=== PATIENT | female | born 1970 | race African-American/Black ===

== ENCOUNTER → 2019-05-31 12:18 | Outpatient (CLI) | payer OTHER, SELFPAY ==
--- NOTE | ~2019-05-31 | XR_ITS ---
EXAMINATION: XR chest 2V EXAM DATE: 05/31/2019 12:54 INDICATION: Shortness of breath, cough. Central and anterior chest pain. Wheezing. TECHNIQUE: Frontal and lateral projections of the chest obtained and reviewed. Comparison is made to prior examination from 12/29/2018. FINDINGS: The lungs are clear. There are no pleural effusions. The cardiomediastinal silhouette is within normal limits. There is no pneumothorax suspected. The bones and soft tissues are unremarkab le. IMPRESSION: No acute cardiopulmonary findings. Reviewed, dictated and finalized at location B.
== END ==
PROVIDERS: PCP Family Medicine; Visit Provider Physician Assistant
DX: J22 Unspecified acute lower respiratory infection (principal)
CPT/HCPCS: 71046

== ENCOUNTER 2019-11-02 13:34 | Outpatient (CLI) | payer OTHER, SELFPAY ==
--- NOTE | ~2019-11-02 | MM_ITS ---
EXAMINATION: MM screening [facility] BI w medardo HISTORY: Screening TECHNIQUE: Craniocaudal and mediolateral oblique 3-D tomosynthesis images were obtained and synthetic 2-D images were generated. CAD analysis was submitted and interpreted. COMPARISON: Comparison to multiple prior studies sequentially, with oldest reviewed study dated 09/2012. BREAST PARENCHYMAL COMPOSITION: There are scattered areas of fibroglandular density. FINDINGS: There is no evidence of suspicious mass, calcification, or architectural distortion to sugg est malignancy in either breast. There has been no suspicious interval change. IMPRESSION: 1. No mammographic evidence of malignancy. 2. Recommend routine screening mammography in one year. BI-RADS Category 1: Negative Reviewed, dictated and finalized at location A.
--- NOTE | ~2019-11-02 | DEXA_ITS ---
Bone Density Report Name: Mercedez Lopez Age: 49 Sex: Female Ethnicity: Black Date of : 1970 Indication: postmenopausal; height loss; hysterectomy; Referring Provider: KATE, ANDRES Study: Bone densitometry was performed. Exam Date: November 02, 2019 Accession number: [id number] Bone Density: Region BMD T-score Z-score Classification AP Spine (L1-L4) 1.050 0.0 -0.2 Normal Femoral Neck (Left) 0.825 -0.2 -0.5 Normal Total Hip (Left) 1.013 0.6 0.0 Normal Total Hip Bilateral Avg 1.027 0.7 0.1 Normal Femoral Neck (Right) 0.856 0.1 -0.3 Normal Total Hip (Right) 1.039 0.8 0.2 Normal World Health Organization criteria for BMD impression classify patients as: Normal (T-score at or above -1.0), Osteopenia (T-score between -1.0 and -2.5), or Osteoporosis (T-score at or below -2.5). 10-year Fracture Risk: FRAX not reported because: All T-scores for Spine Total, Hip Total, Femoral Neck at or above -1.0 Clinical Information Provided by Patient: Has used the following medications: Vitamin D, Calcium Has the following medical conditions: Hysterectomy Patient maximum height was 63 Menopause Age: 44 No regular weight bearing exercise Onset of menses at age 14 Number of children 2 Impression: The patient has normal bone mass. Discussion: BONE DENSITY IS ABOVE THE MINIMUM DESIRABLE LEVEL AT ALL SKELETAL SITES TESTED. This patient?s bone mineral density is above the minimum desirable level (T-score -1.0 or better) at all sites measured. The patient should follow a healthful lifestyle (good nutrition with adequate calcium and vitamin D, and appropriate weight-bearing exercise). Follow-Up: Consider repeating this study in 5 years or sooner if there is some new clinical indication. Reported by: ELKE on 11/02/2019 2:09:00 PM. Reviewed, dictated and finalized at location AMavis ZHAO
== END 2019-11-02 13:35 | disposition home or self-care (01) ==
PROVIDERS: PCP Family Medicine; Visit Provider Nurse Practitioner
DX: Z13.820 Encounter for screening for osteoporosis (principal); Z12.31 Encounter for screening mammogram for malignant neoplasm of breast; Z78.0 Asymptomatic menopausal state
CPT/HCPCS: 77063; 77067; 77080

== ENCOUNTER 2020-01-09 06:53 | Outpatient (NON) | payer OTHER, SELFPAY ==
[2020-01-11 13:31] LABS: SARS-CoV-2 RNA PCR Negative
== END 2020-01-09 06:54 ==
LOC: ANHCOVIDDT 07:05
PROVIDERS: PCP Family Medicine; Visit Provider Family Medicine
DX: R68.89 Other general symptoms and signs (principal); Z20.828 Contact with and (suspected) exposure to other viral communicable diseases
CPT/HCPCS: 87635; C9803; U0003

== ENCOUNTER 2020-04-30 16:34 | Outpatient (CLI) | payer OTHER, SELFPAY | END 2020-04-30 16:35 | disposition home or self-care (01) | LOC: ANHCOVIDVC 16:34 | PROVIDERS: PCP Family Medicine | DX: Z23 Encounter for immunization (principal) | CPT/HCPCS: 0001A; 91300 ==

== ENCOUNTER 2020-05-21 16:36 | Outpatient (CLI) | payer OTHER, SELFPAY | END 2020-05-21 16:37 | disposition home or self-care (01) | LOC: ANHCOVIDVC 16:37 | PROVIDERS: PCP Family Medicine | DX: Z23 Encounter for immunization (principal) | CPT/HCPCS: 0002A; 91300 ==

== ENCOUNTER 2021-03-18 08:59 | Outpatient (CLI) | payer OTHER, SELFPAY ==
--- NOTE | ~2021-03-18 | MM_ITS ---
EXAMINATION: MM screening [facility] BI w medardo HISTORY: Screening mammogram TECHNIQUE: Craniocaudal and mediolateral oblique 3-D tomosynthesis images were obtained and synthetic 2-D images were generated. CAD analysis was submitted and interpreted. COMPARISON: 11/02/2019, 06/24/2018, 04/27/2017 BREAST PARENCHYMAL COMPOSITION: There are scattered areas of fibroglandular density. FINDINGS: There has been interval reduction mammoplasty. A few scattered areas of fat necrosis in the breasts are consistent with surgical change. There is no evidence of suspicious mass, calcification, or architectural distortion to suggest malignancy in either breast. There has been no suspicious int erval change. IMPRESSION: 1. No mammographic evidence of malignancy. 2. Recommend routine screening mammography in one year. BI-RADS Category 2: Benign finding(s). Reviewed, dictated and finalized at location A. [employer] WORK[employer]
== END 2021-03-18 09:00 | disposition home or self-care (01) ==
LOC: ANHIMG 09:01
PROVIDERS: PCP Family Medicine; Visit Provider Nurse Practitioner
DX: Z12.31 Encounter for screening mammogram for malignant neoplasm of breast (principal)
CPT/HCPCS: 77063; 77067

== ENCOUNTER 2021-06-28 15:25 | Emergency (ER) | payer OTHER, SELFPAY ==
--- NOTE | ~2021-06-28 | XR_ITS ---
EXAMINATION: XR chest 2V DATE: 06/28/2021 16:05 INDICATION: Cough. TECHNIQUE: Frontal and lateral views of the chest were obtained. COMPARISON: Chest 2 views 12/29/2018 FINDINGS: The chest demonstrates clear lungs without pneumonia, pleural effusion, or pneumothorax. Th e heart size is normal. IMPRESSION: 1. No acute cardiopulmonary disease. Reviewed, dictated and finalized at location A.
[2021-06-28 15:34] VITALS: BP 181/113; PULSE 72; RESP 16; TEMP 36.3; O2SAT 100
--- NOTE | 2021-06-28 15:48 | ED.URI ---
HPI - URI/Sore Throat General Chief Complaint: Upper Respiratory Infection Stated Complaint: Congestion Time Seen by Provider: 06/28/21 15:48 Source: patient Mode of arrival: ambulatory Limitations: no limitations History of Present Illness HPI Narrative: Mercedez Weiss is a 51 yo female with a PMH of HTN, GERD,anxiety, herpes zoster, comes to [facility] with a headache and chest heaviness. 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 Headache-3 weeks ago he was treated for bronchitis and has chest heaviness and thinks she has pneumonia EYES: Denies visual changes, redness, discharge. ENT: Denies rhinorrhea, congestion, sore throat, otalgia. CARDIOVASCULAR: Denies chest pain, palpitations, edema. RESPIRATORY: Denies dyspnea, wheezing, cough GASTROINTESTINAL: Denies abdominal pain, nausea, vomiting, diarrhea. GENITOURINARY: Denies dysuria, hematuria, abnormal discharge SKIN: Denies rash or itching. NEUROLOGIC: Denies numbness, or focal weakness. PSYCHIATRIC: Denies anxiety or depression. [facility] Past Medical History Medical History Encounter for immunization Essential hypertension (~2009) Gastroesophageal reflux disease without esophagitis HTN (hypertension) Migraine Obstructive sleep apnea Other allergic rhinitis Other hyperlipidemia Prediabetes Vitamin D deficiency Surgical History Surgical History H/O bariatric surgery H/O section History of bilateral breast reduction surgery Family History Family History Mother Hypertension Father Family history of malignant neoplasm Patient's father is Other Family history of lung cancer Social History Social History Second hand tobacco smoke exposure: No Alcohol intake: never Substance use: never Substance use type: does not use Gender identity (if verbalized by the patient): Female Spiritual care concerns: No Agree to blood products: Yes Comments At time of signature, I agree with nursing past medical, surgical, social and family history. There is no relevant family history pertinent to the presenting complaint. Exam Narrative: GENERAL: This is a well-nourished, well-developed patient, in mild distress. Complaining of mild headache HEAD: normocephalic, atraumatic. EYES: Sclera clear/white. Vision is grossly intact. EARS: External ears normal, auditory canals clear and without drainage, TMs normal without perforation. Hearing grossly intact. NOSE: External nose normal without nasal discharge, nares without redness, no rhinorrhea. THROAT: Mucous membranes moist, posterior pharynx NECK: Neck supple, non-tender CARDIOVASCULAR: Regular rate and rhythm without murmurs, gallops, or rubs. RESPIRATORY: Clear to auscultation. Breath sounds equal bilaterally. No wheezes, rales, or rhonchi. GASTROINTESTINAL: Abdomen soft, non-tender, SKIN: warm, intact with no suspicious lesions or rash, good texture and turgor. NEURO: awake, alert, and oriented to person, place and time. There were no obvious fo
[2021-06-28] MEDS: cloNIDine HCL 0.1 MG TABLET 0.2 MG PO (16:11)
[2021-06-28 16:33] VITALS: BP 170/108
== END 2021-06-28 16:33 | disposition home or self-care (01) ==
PROVIDERS: Emergency Provider Nurse Practitioner; PCP Family Medicine
DX: I10 Essential (primary) hypertension (principal); J40 Bronchitis, not specified as acute or chronic
CPT/HCPCS: 71046; 99213; A9270; G0463

== ENCOUNTER 2021-10-14 08:43 | Outpatient (CLI) | payer OTHER, SELFPAY ==
--- NOTE | ~2021-10-14 | XR_ITS ---
EXAMINATION: XR chest 2V DATE: 10/14/2021 10:03 INDICATION: Dyspnea TECHNIQUE: PA and lateral views of the chest were obtained. COMPARISON: Chest radiograph dated 06/28/2021 FINDINGS: The lungs remain clear with no focal airspace opacities, pulmonary edema, pleural effusion or pneumot horax. The cardiomediastinal silhouette is normal. Mild thoracic spondylosis with chronic mild anteri or wedging of a a few mid to lower thoracic vertebral bodies. IMPRESSION: 1. No acute cardiopulmonary disease. Reviewed, dictated and finalized at location A.
--- NOTE | 2021-10-14 09:14 | ECHO_ITS ---
Patient Info Name: Mercedez Weiss Age: 51 years : 1970 Gender: Female Ht: 62 in Wt: 190 lbs BSA: 1.98 m2 HR: 51 bpm BP: 136 / 106 mmHg Heart Rhythm: Sinus Rhythm Technical Quality: Good Exam Date: 10/14/2021 9:31 AM Exam Location: [facility] Patient Status: Outpatient Admit Date: 10/14/2021 Staff Ordering Physician: Markel Hoyos MD Brick Offbearer: Tameka Maxwell RDCS Attending Provider: Markel Hoyos MD Referring Physician: Romain SIMS; Exam Type: CA echo doppler color flow Study Info Indications R06.00 - Dyspnea, unspecified Complete two-dimensional, color flow and Doppler transthoracic echocardiogram is performed. Summary 1. Complete two-dimensional, color flow and Doppler transthoracic echocardiogram is performed. 2. Left ventricular chamber dimension is normal. 3. Left ventricular systolic function is normal, estimated at 65-70%. 4. There is mildly increased left ventricular wall thickness. 5. The left ventricular diastolic function is grade II diastolic dysfunction. 6. Global longitudinal strain is mildly elevated at -15 %. 7. There is no aortic valve stenosis. 8. There is trace mitral valve regurgitation. 9. There is trace tricuspid valve regurgitation. 10. No pulmonary hypertension, estimated pulmonary arterial systolic pressure is 22 mmHg. Left Ventricle Left ventricular chamber dimension is normal. Left ventricular systolic function is normal, estimated at 65-70%. There is mildly increased left ventricular wall thickness. The left ventricular diastolic function is grade II diastolic dysfunction. Global longitudinal strain is mildly elevated at -15 %. Right Ventricle Right ventricular chamber dimension is normal. Right ventricular systolic function is normal. Left Atria Left atrial chamber dimension is normal. Right Atria Right atrial chamber dimension is normal. Aortic Valve The aortic valve is trileaflet. There is no aortic valve stenosis. There is trace aortic valve regurgitation. Pulmonic Valve The pulmonic valve is not well visualized. There is trace pulmonic regurgitation. Mitral Valve The mitral valve has normal leaflets. There is trace mitral valve regurgitation. Tricuspid Valve The tricuspid valve leaflets are normal. There is trace tricuspid valve regurgitation. No pulmonary hypertension, estimated pulmonary arterial systolic pressure is 22 mmHg. Pericardium/Pleural The pericardium appears normal. There is no pericardial effusion. Inferior Vena Cava Normal inferior vena cava with >50% collapse upon inspiration consistent with normal right atrial pressure, 5 mmHg. Aorta The aortic root size at the sinus of Valsalva is normal. Left Ventricular Outflow Tract Name Value Normal LVOT 2D LVOT Diameter 1.9 cm LVOT Doppler LVOT Peak Gradient 5 mmHg LVOT Mean Gradient 2 mmHg LVOT VTI 24 cm LVOT VTI/AV VTI Ratio 0.9 LVOT Stroke Volume 65 ml LVOT CO
[2021-10-14 09:20] LABS: Basophils Percent Auto 0.7 % (0.2-1.2); Eosinophils Absolute Auto 0.4 K/mm3 (0-0.3); Eosinophils Percent Auto 6.8 % (0-4.4); Hematocrit 37.1 % (37.0-47.0); Immature Granulocyte Absolute 0.01 K/mm3 (0.00-0.031); Immature Granulocyte Percent A 0.2 % (0-0.5); Lymphocytes Absolute Auto 2.12 K/mm3 (0.9-3.2); Lymphocytes Percent Auto 37.9 % (18.3-44.2); Mean Corpuscular HGB Conc 32.3 g/dl (32-36); Mean Corpuscular Volume 89.6 fl (80-100); Mean Platelet Volume 11.7 fl (7.4-10.4); Monocytes Absolute Auto 0.5 K/mm3 (0.1-0.6); Monocytes Percent Auto 9.1 % (2.6-8.5); Neutrophils Absolute Auto 2.5 K/mm3 (1.3-6.7); Neutrophils Percent Auto 45.3 % (45.5-73.1); Platelet Count Result 198 k/mm3 (150-375); Red Blood Count 4.14 M/mm3 (4.2-5.4); Red Cell Distribution Width 12.5 % (11.5-14.5); White Blood Count 5.6 K/mm3 (4.5-10.0)
[2021-10-14 09:40] LABS: Anion Gap 9 mmol/L (8-16); Blood Urea Nitrogen 13 mg/dL (7-17); Calcium 8.4 mg/dL (8.4-10.2); Carbon Dioxide 24 mmol/L (22-30); Chloride 105 mmol/L (98-107); Estimated Glomerular Filt Rate > 60; Glucose 117 mg/dL (65-110); Potassium 3.6 mmol/L (3.4-5.0); Sodium 138 mmol/L (137-145)
--- NOTE | 2021-10-16 12:57 | WPDPFTINT ---
PFT Procedure Performed PFT Procedure Performed Spirometry with Pre/Post Bronchodilator Plethysmography (Lung Vol) Diffusing Cap (DLCO) Flow Vol Loop PFT Interpretation This is a pulmonary function test with pre and post-bronchodilator spirometry, plethysmography and diffusing capacity. The test was performed and results interpreted in accordance with the 2019 and 2005 ATS/ERS Task Force guidelines respectively using the Global Lung Function Initiative-2012 reference equations. Patient demonstrated good effort and cooperation. Reproducibility criteria were met. The quality of the pre bronchodilator spirometry maneuver was Grade A and post bronchodilator spirometry maneuver was Grade A. Findings: Spirometry: The contour the inspiratory and expiratory flow tracings are normal. The pre bronchodilator FVC is 3.04 L, 111% predicted. The pre bronchodilator FEV1 is 2.41 L, 108% predicted. The pre bronchodilator FEV1: FVC ratio 79%. The post bronchodilator FVC is 3.06 L, representing no change. The post bronchodilator FEV1 is 2.49 L, representing a 3% increase. The post bronchodilator FEV1: FVC ratio was 81%. Plethysmography: The total lung capacity is 5.15 L, 124% predicted. The functional residual capacity is 2.73 L, 115% predicted. The residual volume is 2.11 L, 137% predicted. Diffusing capacity: The diffusing capacity unadjusted for hemoglobin and carboxyhemoglobin is 18.9, 86% predicted. The diffusing capacity adjusted for alveolar volume is 4.60, 98% predicted. Impression: The spirometry is normal without evidence of an obstructive abnormality. There is no significant improvement after inhaling a single dose of albuterol. The lung volumes are normal. The diffusing capacity is normal. There are no prior studies for comparison
== END 2021-10-14 08:44 | disposition home or self-care (01) ==
PROVIDERS: PCP Family Medicine; Visit Provider Internal Medicine Pulmonary Disease
DX: R06.00 Dyspnea, unspecified (principal)
CPT/HCPCS: 36415; 71046; 80048; 85025; 93306; 94060; 94726; 94729

== ENCOUNTER 2022-05-05 00:53 | Day surgery (SDC) | payer OTHER, SELFPAY ==
[2022-04-28 13:29] VITALS: BMI 32.0
--- NOTE | 2022-05-02 12:41 | PM.HPGS ---
History of Present Illness History of Present Illness Consent: Risks, benefits, and alternatives have been discussed and questions answered. Patient agrees to proceed with procedure. Chief complaint: neoplasm screening Narrative: Mercedez Weiss is a 52 year old female referred for colon cancer screening. Review of Systems Review of Systems: All systems reviewed & are unremarkable except as noted in HPI and below PMFSH Past Medical History Medical History Encounter for immunization Essential hypertension (~2009) Gastroesophageal reflux disease without esophagitis HTN (hypertension) Migraine Obstructive sleep apnea Other allergic rhinitis Other hyperlipidemia Prediabetes Vitamin D deficiency Surgical History Surgical History H/O bariatric surgery H/O section History of bilateral breast reduction surgery Family History Family History Mother Hypertension Father Family history of malignant neoplasm Patient's father is Other Family history of lung cancer Social History Social History Smoking status: Never smoker Second hand tobacco smoke exposure: No Alcohol intake: never Substance use: never Substance use type: does not use Lack of Transportation: No Lack of Food: Never True Current Housing: I Have Housing Concerned About Future Housing: No Difficulty Paying Gas/Electric Bills: No Difficulty Paying for Meds: No Currently Unemployed: No Education: High School Diploma/GED Difficulty w/ Childcare or Family Care: No Living arrangements: with family Gender identity (if verbalized by the patient): Female Sexual Orientation (if Verbalized by the Patient): Straight or Heterosexual Spiritual care concerns: No Agree to blood products: Yes Meds Home Medications and Allergies Home Medications Medication Instructions Recorded Confirmed Type albuterol sulfate 90 mcg/actuation 1 inhalation inhalation Q4H PRN 05/27/19 04/28/22 Rx aerosol inhaler (ProAir HFA) shortness of breath or wheezing #8.5 grams labetalol 100 mg tablet 200 mg PO Q12H #60 tabs 01/23/20 04/28/22 Rx rizatriptan 10 mg tablet (Maxalt) See Rx Instructions PO .COMPLEX #9 05/28/21 03/06/23 Rx tabs valacyclovir 1 gram tablet 1,000 mg PO Q12H PRN cold sores 02/22/21 04/28/22 Rx #10 tabs ergocalciferol (vitamin D2) 1,250 1,250 mcg PO 2XW 06/03/21 04/28/22 History mcg (50,000 unit) capsule famotidine 20 mg tablet (Pepcid) 20 mg PO DAILY #30 tabs 06/18/21 04/28/22 Rx cetirizine 10 mg tablet (Zyrtec) 10 mg PO DAILY #30 tabs 06/28/21 04/28/22 Rx clonidine HCl 0.1 mg tablet 0.1 mg PO DAILY PRN hypertensive 07/05/21 04/28/22 Rx emergency #30 tabs triamcinolone acetonide 0.1 % 1 applic topical BID #80 grams 09/12/21 04/28/22 Rx topical ointment pantoprazole 40 mg tablet,delayed 40 mg PO QAM #90 tabs 12/02/21 04/28/22 Rx release (Protonix) fluticasone propionate 50 See Rx Instructions .Route 03/03/22 04/28/22 Rx mcg/actuation nasal .COMPLEX #48 grams spray,suspension amlodipine 10 mg tablet 10 mg PO DAILY #90 tabs 03/05/22 04/28/22 Rx lisinopril 40 mg tablet 40 mg PO DAILY #90 tabs 03/05/22 04/28/22 Rx estradiol 1 mg tablet 1.5 mg PO DAILY 03/20/22 04/28/22 History venlafaxine 37.5 mg 37.5 mg PO DAILY 03/20/22 04/28/22 History capsule,extended release 24 hr chlorthalidone 25 mg tablet 12.5 mg PO DAILY 04/28/22 04/28/22 History Allergies Allergy/AdvReac Type Severity Reaction Status Date / Time No Known Allergies Allergy Verified 05/05/22 07:18 Exam Const: General: alert Orientation/consciousness: patient oriented x3 Resp: Auscultation: clear to auscultation bilaterally Cardio: Rhythm: regular rhythm GI: GI Palp: Yes Sof
[2022-05-05 07:22] VITALS: BP 109/77; PULSE 76; RESP 20; TEMP 36.6; O2SAT 100
[2022-05-05] MEDS: LACTATED RINGERS 1,000 ML 150 ML IV CONT (07:33)
--- NOTE | 2022-05-05 07:50 | WPDANESEPPF ---
Anes - Initial Pre Proc Eval Procedure: Operation Date: 05/05/22 08:30 Proposed Procedures p Screening Colonoscopy - Kev Sheehan MD Date/Time: 05/05/22 07:50 Surgeon: Kev Sheehan MD Pre Op Diagnosis: neoplasm screening Patient Data Age: 52 Gender: F Height: 1.6 m Weight: 88.1 kg Last Vital Signs Temp 36.6 C 05/05/22 07:22 Pulse 76 05/05/22 07:22 Resp 20 05/05/22 07:22 BP 109/77 05/05/22 07:22 Pulse Ox 100 05/05/22 07:22 O2 Del Method Room Air 05/05/22 07:22 Allergies Allergy/AdvReac Type Severity Reaction Status Date / Time No Known Allergies Allergy Verified 05/05/22 07:18 Home Medications Medication Instructions Recorded Confirmed Type albuterol sulfate 90 mcg/actuation 1 inhalation inhalation Q4H PRN 05/27/19 04/28/22 Rx aerosol inhaler (ProAir HFA) shortness of breath or wheezing #8.5 grams labetalol 100 mg tablet 200 mg PO Q12H #60 tabs 01/23/20 04/28/22 Rx rizatriptan 10 mg tablet (Maxalt) See Rx Instructions PO .COMPLEX #9 07/20/20 04/28/22 Rx tabs valacyclovir 1 gram tablet 1,000 mg PO Q12H PRN cold sores 02/22/21 04/28/22 Rx #10 tabs ergocalciferol (vitamin D2) 1,250 1,250 mcg PO 2XW 06/03/21 04/28/22 History mcg (50,000 unit) capsule famotidine 20 mg tablet (Pepcid) 20 mg PO DAILY #30 tabs 06/18/21 04/28/22 Rx cetirizine 10 mg tablet (Zyrtec) 10 mg PO DAILY #30 tabs 06/28/21 04/28/22 Rx clonidine HCl 0.1 mg tablet 0.1 mg PO DAILY PRN hypertensive 07/05/21 04/28/22 Rx emergency #30 tabs triamcinolone acetonide 0.1 % 1 applic topical BID #80 grams 09/12/21 04/28/22 Rx topical ointment pantoprazole 40 mg tablet,delayed 40 mg PO QAM #90 tabs 12/02/21 04/28/22 Rx release (Protonix) fluticasone propionate 50 See Rx Instructions .Route 03/03/22 04/28/22 Rx mcg/actuation nasal .COMPLEX #48 grams spray,suspension amlodipine 10 mg tablet 10 mg PO DAILY #90 tabs 03/05/22 04/28/22 Rx lisinopril 40 mg tablet 40 mg PO DAILY #90 tabs 03/05/22 04/28/22 Rx estradiol 1 mg tablet 1.5 mg PO DAILY 03/20/22 04/28/22 History venlafaxine 37.5 mg 37.5 mg PO DAILY 03/20/22 04/28/22 History capsule,extended release 24 hr chlorthalidone 25 mg tablet 12.5 mg PO DAILY 04/28/22 04/28/22 History Patient hx anesthesia problems: none Family hx anesthesia problems: none Results Review: All pre-operative results and documents have been reviewed as part of the pre-operative evaluation. [facility] Past Medical History Medical History Encounter for immunization Essential hypertension (~2009) Gastroesophageal reflux disease without esophagitis HTN (hypertension) Migraine Obstructive sleep apnea Other allergic rhinitis Other hyperlipidemia Prediabetes Vitamin D deficiency Surgical History Surgical History H/O bariatric surgery H/O section History of bilateral breast reduction surgery Family History Family History Mother Hypertension Father Family history of malignant neoplasm Patient's father is Other Family history of lung cancer Social History Social History Smoking status: Never smoker Second hand tobacco smoke exposure: No Alcohol intake: never Substance use: never Substance use type: does not use Lack of Transportation: No Lack of Food: Never True Current Housing: I Have Housing Concerned About Future Housing: No Difficulty Paying Gas/Electric Bills: No Difficulty Paying for Meds: No Currently Unemployed: No Education: High School Diploma/GED Difficulty w/ Childcare or Family Care: No Living arrangements: with family Gender identity (if verbalized by the patient): Female Sexual Orientation (if Verbalized by the Patient): Straight or Heterosexual Spiritual
[2022-05-05 08:45] VITALS: BP 110/71; PULSE 72; RESP 18; O2SAT 95
[2022-05-05 08:55] VITALS: BP 105/70; PULSE 70; RESP 16; O2SAT 96
[2022-05-05 09:05] VITALS: BP 124/79; PULSE 62; RESP 22; O2SAT 100
== END 2022-05-05 09:11 | disposition home or self-care (01) ==
PROVIDERS: PCP Family Medicine; Visit Provider Internal Medicine Gastroenterology
PROC: 0DJD8ZZ Inspection of Lower Intestinal Tract, Via Natural or Artificial Opening Endoscopic (ICD-10-PCS; CPT 45378; principal; 2022-05-05 08:30)
DX: Z12.11 Encounter for screening for malignant neoplasm of colon (principal); K62.1 Rectal polyp; K21.9 Gastro-esophageal reflux disease without esophagitis; K64.8 Other hemorrhoids; I10 Essential (primary) hypertension; E78.5 Hyperlipidemia, unspecified; E55.9 Vitamin D deficiency, unspecified; R73.03 Prediabetes; G47.33 Obstructive sleep apnea (adult) (pediatric)
CPT/HCPCS: 45380; 88305; J2704; J7120

== ENCOUNTER 2022-06-03 09:33 | Outpatient (CLI) | payer OTHER, SELFPAY ==
--- NOTE | ~2022-06-03 | MM_ITS ---
EXAMINATION: MM screening [facility] w medardo HISTORY: Screening mammogram TECHNIQUE: Craniocaudal and mediolateral oblique 3-D tomosynthesis images were obtained and synthetic 2-D images were generated. CAD analysis was submitted and interpreted. COMPARISON: 03/18/2021, 11/02/2019, 06/24/2018 BREAST PARENCHYMAL COMPOSITION:There are scattered areas of fibroglandular density. FINDINGS: There is a focal distortion in the upper left breast on MLO view, posterior third. No suspi cious abnormality seen in the right breast. There is evidence of interval reduction mammoplasty. IMPRESSION: Focal distortion in the upper left breast in MLO view, as detailed above. This is possibly related to interval reduction mammoplasty, however spot compression views and ultrasound are recommended for fu rther evaluation this time. BI-RADS Category 0: Incomplete: Needs additional imaging evaluation. Reviewed, dictated and finalized at [facility]. IMPRESSION: Focal distortion in the upper left breast in MLO view, as detailed above. This is possibly related to interval reduction mammoplasty, however spot compression views and ultrasound are recommended for further evaluation this time. BI-RADS Category 0: Incomplete: Needs additional imaging evaluation.
== END 2022-06-03 09:34 | disposition home or self-care (01) ==
PROVIDERS: PCP Family Medicine; Visit Provider Nurse Practitioner
DX: Z12.31 Encounter for screening mammogram for malignant neoplasm of breast (principal); R92.8 Other abnormal and inconclusive findings on diagnostic imaging of breast
CPT/HCPCS: 77063; 77067

== ENCOUNTER 2022-06-24 12:49 | Outpatient (CLI) | payer OTHER, SELFPAY ==
--- NOTE | ~2022-06-24 | MMUS_ITS ---
EXAMINATION: MM diagnostic [facility] LT w medardo, US breast LT limited HISTORY: Left breast asymmetry on screening mammogram TECHNIQUE: Additional 3-D tomosynthesis images of the left breast were performed and synthetic 2-D im ages were generated. CAD analysis was submitted and interpreted. High resolution limited left breast ultrasound was performed. COMPARISON: 06/03/2022, 03/18/2021, 11/02/2019 FINDINGS: MAMMOGRAPHIC FINDINGS: There is a persistent focal asymmetry in the middle third outer breast at 3:00 location 5 cm from the nipple. No suspicious calcification is identified. ULTRASOUND: There is no evidence of focal abnormal solid or cystic mass in the vicinity of the mammographic findi ng in question. IMPRESSION: 1. Probably benign focal asymmetry in the left breast related to interval reduction mammoplasty. 2. Recommend 6 month follow-up left diagnostic mammogram and possible ultrasound. BI-RADS category 3, probably benign findings. Reviewed, dictated and finalized at location A. IMPRESSION: 1. Probably benign focal asymmetry in the left breast related to interval reduc tion mammoplasty. 2. Recommend 6 month follow-up left diagnostic mammogram and possible ultrasoun d. BI-RADS category 3, probably benign findings.
== END 2022-06-24 12:50 | disposition home or self-care (01) ==
PROVIDERS: PCP Family Medicine; Visit Provider Obstetrics & Gynecology Gynecology
DX: R92.8 Other abnormal and inconclusive findings on diagnostic imaging of breast (principal)
CPT/HCPCS: 76642; 77061; 77065; G0279

== ENCOUNTER 2022-06-30 07:59 | Emergency (ER) | payer OTHER, SELFPAY ==
--- NOTE | ~2022-06-30 | XR_ITS ---
EXAMINATION: XR chest 2V DATE: 06/30/2022 08:28 INDICATION: Cough. TECHNIQUE: Frontal and lateral views of the chest were obtained. COMPARISON: Chest 2 views 10/14/2021 FINDINGS: There is no pneumonia, pleural effusion, or pneumothorax. The heart size is normal. IMPRESSION: 1. No acute cardiopulmonary disease. Reviewed, dictated and finalized at location A.
[2022-06-30 08:00] VITALS: BP 164/101; PULSE 73; RESP 16; TEMP 37; O2SAT 100
--- NOTE | 2022-06-30 08:21 | ED.GENADULT ---
HPI - General Adult General Chief complaint: Unspecified Stated complaint: upper respiratory Time Seen by Provider: 06/30/22 08:08 History of Present Illness HPI narrative: This is a 52-year-old female with history of hypertension and pneumonia, who presents the emergency department complaining of cough with mild sore like chest pain for the past 2 days. She states her symptoms began with upper respiratory congestion that improved though she developed cough productive of nonbloody yellow mucus. Her chest pain is exacerbated by cough without other exacerbation on physical exertion she denies any known sick contacts or recent travel. Related Data Home Medications Medication Instructions Recorded Confirmed ergocalciferol (vitamin D2) 1,250 1,250 mcg PO 2XW 06/03/21 04/28/22 mcg (50,000 unit) capsule estradiol 1 mg tablet 1.5 mg PO DAILY 03/20/22 04/28/22 venlafaxine 37.5 mg 37.5 mg PO DAILY 03/20/22 04/28/22 capsule,extended release 24 hr chlorthalidone 25 mg tablet 12.5 mg PO DAILY 04/28/22 04/28/22 montelukast 10 mg tablet 10 mg PO DAILY 05/21/22 Allergies Allergy/AdvReac Type Severity Reaction Status Date / Time No Known Allergies Allergy Verified 06/30/22 08:03 Review of Systems Review of Systems: CONSTITUTIONAL: Denies fever, chills, or sweats. EYES: Denies visual changes, redness, or discharge. ENT: Rhinorrhea, congestion denies sore throat, or otalgia. CARDIOVASCULAR: Chest soreness denies palpitations, or edema. RESPIRATORY: Nonbloody cough productive of yellow sputum denies dyspnea. GASTROINTESTINAL: Denies abdominal pain, nausea, vomiting, or diarrhea. GENITOURINARY: Denies dysuria or hematuria. SKIN: Denies rash or itching. MUSCULOSKELETAL: Diffuse myalgias denies back pain, joint pain, NEUROLOGIC: Denies headache, numbness, dizziness, or weakness. PSYCHIATRIC: Denies anxiety or depression. [facility] Past Medical History Medical History Encounter for immunization Essential hypertension (~2009) Gastroesophageal reflux disease without esophagitis HTN (hypertension) Migraine Obstructive sleep apnea Other allergic rhinitis Other hyperlipidemia Prediabetes Vitamin D deficiency Surgical History Surgical History H/O bariatric surgery H/O section History of bilateral breast reduction surgery Family History Family History Mother Hypertension Father Family history of malignant neoplasm Patient's father is Other Family history of lung cancer Social History Social History Smoking status: Never smoker Second hand tobacco smoke exposure: No Alcohol intake: never Substance use: never Substance use type: does not use Lack of Transportation: No Lack of Food: Never True Current Housing: I Have Housing Concerned About Future Housing: No Difficulty Paying Gas/Electric Bills: No Difficulty Paying for Meds: No Currently Unemployed: No Education: High School Diploma/GED Difficulty w/ Childcare or Family Care: No Living arrangements: with family Gender identity (if verbalized by the patient): Female Sexual Orientation (if Verbalized by the Patient): Straight or Heterosexual Spiritual care concerns: No Agree to blood products: Yes Exam Narrative: GENERAL: Well-developed, well-nourished, and in no acute distress. HEAD: Normocephalic, atraumatic. EYES: PERRLA and EOMI. ENT: Clear rhinorrhea, no epistaxis. Mucous membranes moist. Oropharynx without tonsillar hypertrophy exudate or other lesions. Bilateral TMs pearly jernigan slightly bulging CHEST: Clear to auscultation. No respiratory distress. No wheezes rales or rhonchi HEART: Regular rate and rhythm. No murmur heard. Normal peripheral pulses. ABDOMEN: Soft,
[2022-06-30] MEDS: ACETAMINOPHEN 500 MG TABLET 1000 MG PO (08:29)
[2022-06-30 09:13] LABS: Influenza A QL RT-PCR Negative (Negative); Influenza B QL RT-PCR Negative (Negative); SARS-CoV-2 RNA PCR Negative (Negative)
[2022-06-30 09:19] VITALS: RESP 17; O2SAT 98
== END 2022-06-30 09:55 | disposition home or self-care (01) ==
PROVIDERS: Emergency Provider Preventive Medicine Aerospace Medicine; PCP Family Medicine
DX: M94.0 Chondrocostal junction syndrome [Tietze] (principal); B34.9 Viral infection, unspecified; J06.9 Acute upper respiratory infection, unspecified; Z20.822 Contact with and (suspected) exposure to COVID-19; I10 Essential (primary) hypertension; K21.9 Gastro-esophageal reflux disease without esophagitis; G47.30 Sleep apnea, unspecified
CPT/HCPCS: 71046; 87636; 99283; A9270

== ENCOUNTER 2022-07-02 14:33 | Outpatient (CLI) | payer OTHER, SELFPAY ==
[2022-07-02 14:48] LABS: Basophils Percent Auto 0.7 % (0.2-1.2); Eosinophils Absolute Auto 0.3 K/mm3 (0-0.3); Eosinophils Percent Auto 5.1 % (0-4.4); Hematocrit 38.2 % (37.0-47.0); Hemoglobin 12.6 g/dL (12.0-15.0); Immature Granulocyte Absolute 0.01 K/mm3 (0.00-0.031); Immature Granulocyte Percent A 0.2 % (0-0.5); Lymphocytes Absolute Auto 2.65 K/mm3 (0.9-3.2); Mean Corpuscular Hemoglobin 29.6 pg (26-34); Mean Corpuscular Volume 89.7 fl (80-100); Mean Platelet Volume 11.5 fl (7.4-10.4); Monocytes Absolute Auto 0.5 K/mm3 (0.1-0.6); Monocytes Percent Auto 8.9 % (2.6-8.5); Neutrophils Absolute Auto 2.1 K/mm3 (1.3-6.7); Neutrophils Percent Auto 37.1 % (45.5-73.1); Platelet Count Result 174 k/mm3 (150-375); Red Blood Count 4.26 M/mm3 (4.2-5.4); Red Cell Distribution Width 11.9 % (11.5-14.5); White Blood Count 5.5 K/mm3 (4.5-10.0)
[2022-07-02 16:40] LABS: Alanine Aminotransferase 24 U/L (6-35); Albumin Level 4.5 g/dL (3.5-5.1); Alkaline Phosphatase 60 U/L (38-126); Anion Gap 7 mmol/L (8-16); Aspartate Amino Transferase 32 U/L (14-36); Bilirubin,Total 0.4 mg/dL (0.2-1.3); Blood Urea Nitrogen 16 mg/dL (7-17); Calcium 8.8 mg/dL (8.4-10.2); Carbon Dioxide 28 mmol/L (22-30); Chloride 105 mmol/L (98-107); Estimated Glomerular Filt Rate > 60; Glucose 83 mg/dL (65-110); Potassium 3.9 mmol/L (3.4-5.0); Sodium 140 mmol/L (137-145)
[2022-07-06 22:37] LABS: Albumin 4.1 g/dL (3.8-4.8); Alpha 1 Globulin 0.3 g/dL (0.2-0.3); Alpha 2 Globulin 0.7 g/dL (0.5-0.9); Beta 1 Globulin 0.5 g/dL (0.4-0.6); Protein, Total 7.3 g/dL (6.1-8.1)
[2022-07-08 21:46] LABS: Kappa\\Lambda Light Chains 1.85 (0.26-1.65); Lambda Light Chain 17.6 mg/L (5.7-26.3)
== END 2022-07-02 14:34 | disposition home or self-care (01) ==
LOC: ANHLAB 14:35
PROVIDERS: PCP Family Medicine; Visit Provider Internal Medicine Hematology & Oncology
DX: D47.2 Monoclonal gammopathy (principal)
CPT/HCPCS: 36415; 80053; 83883; 84155; 84165; 85025

== ENCOUNTER 2022-07-03 11:25 | Outpatient (CLI) | payer OTHER, SELFPAY ==
[2022-07-03 13:02] LABS: Immunoglobulin A 694 mg/dL (70-400); Immunoglobulin G 1277 mg/dL (700-1600)
[2022-07-03 15:04] LABS: Immunoglobulin M < 25 mg/dL (40-230)
== END 2022-07-03 11:26 | disposition home or self-care (01) ==
LOC: ANHLAB 11:27
PROVIDERS: PCP Family Medicine; Visit Provider Internal Medicine Hematology & Oncology
DX: D47.2 Monoclonal gammopathy (principal)
CPT/HCPCS: 36415; 82784

== ENCOUNTER 2022-11-17 08:28 | Outpatient (CLI) | payer OTHER, SELFPAY ==
--- NOTE | ~2022-11-17 | US_ITS ---
US renal BI 11/17/2022 08:59 Procedure: Realtime transabdominal ultrasound of the kidneys and bladder. Indication: Chronic kidney disease stage II Comparison: CT dated 10/20/2018 Findings: Renal echotexture is normal bilaterally without hydronephrosis, contour deforming mass or r enal calculus. There is a right renal cyst measuring 1.8 cm. The right kidney measures 8.7 cm and lef t kidney measures 9.6 cm. Bladder within normal limits. Impression: 1: Right renal cyst measures 1.8 cm. Reviewed, dictated and finalized at location B. Impression: 1: Right renal cyst measures 1.8 cm.
[2022-11-17 10:14] LABS: Complement C3 95 mg/dL (88-165)
[2022-11-17 10:19] LABS: Albumin Level 4.5 g/dL (3.5-5.1); Anion Gap 7 mmol/L (8-16); Blood Urea Nitrogen 14 mg/dL (7-17); Calcium 9.1 mg/dL (8.4-10.2); Carbon Dioxide 28 mmol/L (22-30); Chloride 102 mmol/L (98-107); Estimated Glomerular Filt Rate > 60; Glucose 83 mg/dL (65-110); Phosphorus 3.9 mg/dL (2.5-4.5); Potassium 3.6 mmol/L (3.4-5.0); Sodium 137 mmol/L (137-145)
[2022-11-17 10:40] LABS: Creatinine Urine 13.2 mg/dL; Total Protein Urine Random 14 mg/dL; Ur Ttl Prot Creatinine Ratio 1.06 mg/mg (0-0.20)
[2022-11-19 15:58] LABS: Albumin 4.1 g/dL (3.8-4.8); Alpha 1 Globulin 0.3 g/dL (0.2-0.3); Alpha 2 Globulin 0.6 g/dL (0.5-0.9); Beta 1 Globulin 0.5 g/dL (0.4-0.6); Gamma Globulin 1.1 g/dL (0.8-1.7); Protein, Total 7.3 g/dL (6.1-8.1)
[2022-11-20 13:43] LABS: Anti Nuclear Antibody Pattern Nuclear, Nucleolar
[2022-11-20 18:54] LABS: Anti Glomerular Basement Memb <1.0 AI (<1.0)
[2022-11-22 14:32] LABS: ANCA Screen Negative (Negative)
[2022-11-26 21:56] LABS: Creatinine, Random Urine 15 mg/dL (20-275)
== END 2022-11-17 08:29 | disposition home or self-care (01) ==
PROVIDERS: PCP Family Medicine; Visit Provider Internal Medicine Nephrology
DX: I12.9 Hypertensive chronic kidney disease with stage 1 through stage 4 chronic kidney disease, or unspecified chronic kidney disease (principal); N18.2 Chronic kidney disease, stage 2 (mild); N28.1 Cyst of kidney, acquired
CPT/HCPCS: 36415; 76775; 80069; 82570; 83520; 84155; 84156; 84165; 84166; 86036; 86038; 86039; 86160; 86225

== ENCOUNTER 2023-01-05 11:02 | Outpatient (CLI) | payer OTHER, SELFPAY ==
--- NOTE | ~2023-01-05 | MM_ITS ---
EXAMINATION: MM diagnostic christian LT w medardo HISTORY: Six-month follow-up for probably benign left breast focal asymmetry TECHNIQUE: Craniocaudal, mediolateral, and mediolateral oblique 3-D tomosynthesis images of the left breast were performed and synthetic 2-D images were generated. CAD analysis was submitted and interpr eted. COMPARISON: 06/24/2022, 06/03/2022, 03/18/2021 BREAST PARENCHYMAL COMPOSITION: There are scattered areas of fibroglandular density. FINDINGS: No persistent focal asymmetry is identified in the left breast. There are no suspicious mas s, calcification, or architectural distortion. IMPRESSION: 1. No mammographic evidence of malignancy. 2. Recommend routine screening mammography, due in six months. BI-RADS Category 1: Negative Reviewed, dictated and finalized at location A. 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
== END 2023-01-05 11:03 | disposition home or self-care (01) ==
LOC: ANHIMG 11:04
PROVIDERS: PCP Family Medicine; Visit Provider Obstetrics & Gynecology Gynecology
DX: N64.59 Other signs and symptoms in breast (principal)
CPT/HCPCS: 77061; 77065; G0279

== ENCOUNTER 2023-01-20 16:35 | Outpatient (CLI) | payer OTHER, SELFPAY ==
[2023-01-20 16:59] LABS: Basophils Percent Auto 0.5 % (0.2-1.2); Eosinophils Absolute Auto 0.3 K/mm3 (0-0.3); Eosinophils Percent Auto 5.5 % (0-4.4); Hematocrit 37.3 % (37.0-47.0); Hemoglobin 11.6 g/dL (12.0-15.0); Immature Granulocyte Absolute 0.01 K/mm3 (0.00-0.031); Immature Granulocyte Percent A 0.2 % (0-0.5); Lymphocytes Absolute Auto 2.49 K/mm3 (0.9-3.2); Lymphocytes Percent Auto 41.2 % (18.3-44.2); Mean Corpuscular HGB Conc 31.1 g/dl (32-36); Mean Corpuscular Hemoglobin 28.8 pg (26-34); Mean Corpuscular Volume 92.6 fl (80-100); Mean Platelet Volume 11.2 fl (7.4-10.4); Monocytes Absolute Auto 0.5 K/mm3 (0.1-0.6); Monocytes Percent Auto 7.4 % (2.6-8.5); Neutrophils Absolute Auto 2.7 K/mm3 (1.3-6.7); Neutrophils Percent Auto 45.2 % (45.5-73.1); Platelet Count Result 179 k/mm3 (150-375); Red Blood Count 4.03 M/mm3 (4.2-5.4); Red Cell Distribution Width 12.5 % (11.5-14.5); White Blood Count 6.1 K/mm3 (4.5-10.0)
[2023-01-20 17:10] LABS: Alanine Aminotransferase 15 U/L (6-35); Albumin Level 4.2 g/dL (3.5-5.1); Alkaline Phosphatase 52 U/L (38-126); Anion Gap 9 mmol/L (8-16); Aspartate Amino Transferase 33 U/L (14-36); Bilirubin,Total 0.7 mg/dL (0.2-1.3); Blood Urea Nitrogen 18 mg/dL (7-17); Calcium 8.9 mg/dL (8.4-10.2); Carbon Dioxide 27 mmol/L (22-30); Chloride 105 mmol/L (98-107); Estimated Glomerular Filt Rate > 60; Glucose 99 mg/dL (65-110); Potassium 3.9 mmol/L (3.4-5.0); Sodium 141 mmol/L (137-145)
[2023-01-22 23:31] LABS: Lambda Light Chain 14.3 mg/L (5.7-26.3)
[2023-01-23 09:53] LABS: Immunoglobulin A 575 mg/dL (47-310); Immunoglobulin G 1241 mg/dL (600-1640); Immunoglobulin M 20 mg/dL (50-300)
[2023-01-23 12:18] LABS: Alpha 1 Globulin 0.3 g/dL (0.2-0.3); Alpha 2 Globulin 0.6 g/dL (0.5-0.9); Beta 1 Globulin 0.5 g/dL (0.4-0.6); Protein, Total 7.1 g/dL (6.1-8.1)
== END 2023-01-20 16:36 | disposition home or self-care (01) ==
LOC: ANHLAB 16:37
PROVIDERS: Visit Provider Internal Medicine Hematology & Oncology
DX: D47.2 Monoclonal gammopathy (principal)
CPT/HCPCS: 36415; 80053; 82784; 83883; 84155; 84165; 85025

== ENCOUNTER 2023-01-22 10:43 | Outpatient (CLI) | payer OTHER, SELFPAY ==
--- NOTE | ~2023-01-22 | CT_ITS ---
Non-contrast Head CT History: Headache Technique: Axial non-contrast imaging of the brain was performed. Dose reduction technique was used on this scan by utilizing automated exposure control and iterative reconstruction technique. The dose -length product (DLP) was 599.57 mGy-cm. Findings: There is no evidence of intracranial hemorrhage, mass lesion, or acute infarct. Brain par enchyma appears normal. The ventricles and subarachnoid spaces are normal in size. The calvarium ap pears normal. The visualized paranasal sinuses and mastoid air cells are clear. Impression: No significant abnormality seen. Reviewed, dictated and finalized at location . DESSERT Impression: No significant abnormality seen.
== END 2023-01-22 10:44 ==
LOC: MICIMG 10:44
PROVIDERS: PCP Physician Assistant Medical; Visit Provider Physician Assistant Medical
DX: R51.9 Headache, unspecified (principal); G89.29 Other chronic pain
CPT/HCPCS: 70450

== ENCOUNTER 2023-06-06 10:09 | Outpatient (CLI) | payer OTHER, SELFPAY ==
[2023-06-06 10:53] LABS: Albumin Level 4.1 g/dL (3.5-5.1); Anion Gap 8 mmol/L (4-12); Blood Urea Nitrogen 22 mg/dL (7-17); Carbon Dioxide 25 mmol/L (22-30); Chloride 105 mmol/L (98-107); Estimated Glomerular Filt Rate 57; Glucose 85 mg/dL (65-110); Phosphorus 3.9 mg/dL (2.5-4.5); Potassium 3.7 mmol/L (3.4-5.0); Sodium 138 mmol/L (137-145); Total Protein Urine Random < 5 mg/dL; Ur Ttl Prot Creatinine Ratio < 0.02 mg/mg (0-0.20)
== END 2023-06-06 10:10 | disposition home or self-care (01) ==
LOC: ANHLAB 10:10
PROVIDERS: PCP Family Medicine; Visit Provider Internal Medicine Nephrology
DX: I12.9 Hypertensive chronic kidney disease with stage 1 through stage 4 chronic kidney disease, or unspecified chronic kidney disease (principal); N18.2 Chronic kidney disease, stage 2 (mild)
CPT/HCPCS: 36415; 80069; 82570; 84156

== ENCOUNTER 2023-08-24 09:08 | Outpatient (CLI) | payer OTHER, SELFPAY ==
[2023-08-24 10:05] LABS: Basophils Percent Auto 0.7 % (0.2-1.2); Eosinophils Absolute Auto 0.2 K/mm3 (0-0.3); Eosinophils Percent Auto 4.9 % (0-4.4); Hematocrit 39.4 % (37.0-47.0); Hemoglobin 12.8 g/dL (12.0-15.0); Immature Granulocyte Absolute 0.01 K/mm3 (0.00-0.031); Immature Granulocyte Percent A 0.2 % (0-0.5); Lymphocytes Percent Auto 39.5 % (18.3-44.2); Mean Corpuscular HGB Conc 32.5 g/dl (32-36); Mean Corpuscular Hemoglobin 29.8 pg (26-34); Mean Corpuscular Volume 91.6 fl (80-100); Mean Platelet Volume 11.6 fl (7.4-10.4); Monocytes Absolute Auto 0.3 K/mm3 (0.1-0.6); Monocytes Percent Auto 7.9 % (2.6-8.5); Neutrophils Absolute Auto 1.9 K/mm3 (1.3-6.7); Neutrophils Percent Auto 46.8 % (45.5-73.1); Platelet Count Result 171 k/mm3 (150-375); Red Cell Distribution Width 12.7 % (11.5-14.5); White Blood Count 4.1 K/mm3 (4.5-10.0)
[2023-08-24 10:17] LABS: Iron 89 ug/dL (37-170)
[2023-08-24 10:23] LABS: Alanine Aminotransferase 23 U/L (6-35); Albumin Level 4.3 g/dL (3.5-5.1); Alkaline Phosphatase 61 U/L (38-126); Anion Gap 5 mmol/L (4-12); Aspartate Amino Transferase 31 U/L (14-36); Bilirubin,Total 0.8 mg/dL (0.2-1.3); Blood Urea Nitrogen 15 mg/dL (7-17); Calcium 8.5 mg/dL (8.4-10.2); Carbon Dioxide 29 mmol/L (22-30); Chloride 105 mmol/L (98-107); Cholesterol 198 mg/dL (0-200); Estimated Glomerular Filt Rate 52; Glucose 75 mg/dL (65-110); HDL Direct 69 mg/dL; Potassium 3.7 mmol/L (3.4-5.0); Sodium 139 mmol/L (137-145); Triglycerides 60 mg/dL (<150)
[2023-08-24 10:27] LABS: Percent Iron Saturation 30 % (20-50)
[2023-08-24 10:34] LABS: LDL Cholesterol Direct 102 mg/dL
[2023-08-24 10:59] LABS: Vitamin D 25 Hydroxy 32.5 ng/mL
[2023-08-24 11:26] LABS: Hemoglobin A1C 4.6 % (<5.7)
== END 2023-08-24 09:09 | disposition home or self-care (01) ==
LOC: ANHLAB 09:10
PROVIDERS: PCP Family Medicine; Visit Provider Family Medicine
DX: D64.9 Anemia, unspecified (principal); N18.2 Chronic kidney disease, stage 2 (mild); R53.83 Other fatigue; R73.03 Prediabetes; E78.2 Mixed hyperlipidemia; E55.9 Vitamin D deficiency, unspecified; E53.8 Deficiency of other specified B group vitamins
CPT/HCPCS: 36415; 80053; 80061; 82306; 82607; 82728; 83036; 83540; 83550; 84443; 85025

== ENCOUNTER 2023-09-04 17:01 | Emergency (ER) | payer OTHER, SELFPAY ==
--- NOTE | ~2023-09-04 | XR_ITS ---
EXAMINATION: XR chest 2V DATE: 09/04/2023 17:50 INDICATION: Chest pain. TECHNIQUE: Frontal and lateral views of the chest were obtained. COMPARISON: Chest 2 views 06/30/2022 FINDINGS: There is no pneumonia, pleural effusion, or pneumothorax. The heart size is normal. IMPRESSION: 1. No acute pulmonary disease. Reviewed, dictated and finalized at location E.
--- NOTE | 2023-09-04 17:02 | ECG_ITS ---
Test Date: 2023-09-04 20:31:29 Measurements Intervals [place] Rate: 63 P: 56 UT: 191 QRS: 9 QRSD: 86 T: 31 QT: 396 QTc: 406 Interpretive Statements SINUS RHYTHM WITH SINUS ARRHYTHMIA POSSIBLE LEFT ATRIAL ENLARGEMENT MINIMAL Q WAVES- HIGH LATERAL LEADS BORDERLINE ECG Compared to ECG 09/04/2023 17:29:02 No significant changes Electronically Signed On 09-05-2023 07:05:56 CDT by Epi Guy D.O.
--- NOTE | 2023-09-04 17:25 | ED.GENADULT ---
HPI - General Adult General Chief complaint: Chest Pain <Anastacia Herbert APRN - Last Filed: 09/04/23 17:28> Stated complaint: chest pain <Anastacia Herbert STILL WORKER HELPER - Last Filed: 09/04/23 17:28> Time Seen by Provider: 09/04/23 17:25 <Anatsacia Herbert STILL WORKER HELPER - Last Filed: 09/04/23 17:28> Focused HPI: Mercedez Weiss is a 53 y/o female who presents with reports of having a heaviness to her chest. She woke up with it and went to work and made it through work it has continued - she thought it was GERD / so she took some anti acids but did not help. She states that pain is worse with deep breaths, and almost feels like she is getting pneumonia like she has had in the past. GENERAL: Well-appearing, well-nourished, and in no acute distress. HEAD: Normocephalic, atraumatic. CHEST: Clear to auscultation. ?No respiratory distress. HEART: Regular rate and rhythm.? NEURO: ?Alert and oriented x3. Patient screened in triage and initial orders placed.? ?Additional care and disposition to be based upon?diagnostic testing and treatment. <Anastacia Herbert, STILL WORKER HELPER - Last Filed: 09/04/23 17:28> History of Present Illness HPI narrative: 53-year-old female presenting to the emergency department for evaluation for chest pain that started this morning. Patient describes chest pain that is worsened with laughing, deep inspiration and movement. Patient denies any prior history of coronary disease. Patient denies any prior history of PE or DVT. <Baldev Larson MD - Last Filed: 09/05/23 04:46> Related Data Home medications: Home Medications Medication Instructions Recorded Confirmed ergocalciferol (vitamin D2) 1,250 1,250 mcg PO 2XW 06/03/21 08/17/23 mcg (50,000 unit) capsule semaglutide (weight loss) 1 mg/0.5 2.6 mg subcut WEEKLY 04/13/23 08/17/23 mL subcutaneous pen injector (Wegovy) <Anastacia Herbert APRN - Last Filed: 09/04/23 17:28> Allergies/adverse reactions: Allergies Allergy/AdvReac Type Severity Reaction Status Date / Time No Known Allergies Allergy Verified 08/17/23 11:13 <Anastacia Torres June,N - Last Filed: 09/04/23 17:28> Review of Systems Review of Systems: All systems reviewed & are unremarkable except as noted in HPI and below <Baldev Larson MD - Last Filed: 09/05/23 04:46> PMFSH Past Medical History Medical History: Medical History Acute bronchitis Acute sinusitis Acute sinusitis Colon cancer screening Cough Dyspnea Encounter for monitoring diuretic therapy Essential hypertension (~2009) Gastroesophageal reflux disease without esophagitis HTN (hypertension) Migraine Obstructive sleep apnea Other allergic rhinitis Other hyperlipidemia Prediabetes Suspected COVID-19 virus infection Vitamin D deficiency <Anastacia Torres June, STILL WORKER HELPER - Last Filed: 09/04/23 17:28> Surgical History Surgical History: Surgical History H/O bariatric surgery H/O section History of bilateral breast reduction surgery <Anastacia Torres June,N - Last Filed: 09/04/23 17:28> Family History Family History: Family History Mother Hypertension Father Family history of malignant neoplasm Patient's father is Stomach cancer Sibling Depression Other Asthma Grandparent Diabetes mellitus Other Family history of lung cancer <Anastacia Torres June,N - Last Filed: 09/04/23 17:28> Social History Social History: Social History Smoking status: Never smoker Second hand tobacco smoke exposure: No Alcohol intake: never Substance use: never Substance use type: does not use Do You Feel Safe in your Home?: Yes Lack of Transportation: No Lack of Food: Sometimes True Current Housing: I Have Housing Concerned About Future Housing: No Difficulty Payi
[2023-09-04 17:36] VITALS: BP 168/112; PULSE 66; RESP 16; TEMP 36.6; O2SAT 100
[2023-09-04 17:52] LABS: Basophils Percent Auto 0.5 % (0.2-1.2); Eosinophils Absolute Auto 0.2 K/mm3 (0-0.3); Eosinophils Percent Auto 3.1 % (0-4.4); Hematocrit 35.9 % (37.0-47.0); Hemoglobin 11.9 g/dL (12.0-15.0); Immature Granulocyte Absolute 0.01 K/mm3 (0.00-0.031); Immature Granulocyte Percent A 0.2 % (0-0.5); Lymphocytes Absolute Auto 1.98 K/mm3 (0.9-3.2); Mean Corpuscular HGB Conc 33.1 g/dl (32-36); Mean Corpuscular Hemoglobin 29.5 pg (26-34); Mean Corpuscular Volume 89.1 fl (80-100); Mean Platelet Volume 11.2 fl (7.4-10.4); Monocytes Absolute Auto 0.5 K/mm3 (0.1-0.6); Monocytes Percent Auto 8.4 % (2.6-8.5); Neutrophils Absolute Auto 3.5 K/mm3 (1.3-6.7); Neutrophils Percent Auto 55.8 % (45.5-73.1); Platelet Count Result 180 k/mm3 (150-375); Red Blood Count 4.03 M/mm3 (4.2-5.4); Red Cell Distribution Width 12.2 % (11.5-14.5); White Blood Count 6.2 K/mm3 (4.5-10.0)
[2023-09-04 18:03] LABS: Alanine Aminotransferase 18 U/L (6-35); Albumin Level 4.3 g/dL (3.5-5.1); Alkaline Phosphatase 69 U/L (38-126); Anion Gap 9 mmol/L (4-12); Aspartate Amino Transferase 29 U/L (14-36); Bilirubin,Total 0.6 mg/dL (0.2-1.3); Blood Urea Nitrogen 16 mg/dL (7-17); Calcium 8.8 mg/dL (8.4-10.2); Carbon Dioxide 26 mmol/L (22-30); Chloride 103 mmol/L (98-107); Estimated CRCL calculation 50 ml/min; Estimated Glomerular Filt Rate > 60; Glucose 68 mg/dL (65-110); Lipase 215 U/L (23-300); Partial Thromboplastin Time 31.7 Seconds (22.3-36.8); Potassium 3.9 mmol/L (3.4-5.0); Prothrombin Time 13.1 Seconds (11.1-14.7); Sodium 138 mmol/L (137-145)
[2023-09-04 18:14] LABS: Troponin I < 0.012 ng/mL (0.000-0.034)
[2023-09-04 19:38] VITALS: BP 186/127; PULSE 57; RESP 14; O2SAT 100
[2023-09-04 19:39] VITALS: BP 155/107
--- NOTE | 2023-09-04 20:25 | ECG_ITS ---
Test Date: 2023-09-04 17:29:02 Measurements Intervals [place] Rate: 69 P: 6 FL: 186 QRS: 50 QRSD: 89 T: 26 QT: 393 QTc: 422 Interpretive Statements SINUS RHYTHM POSSIBLE LEFT ATRIAL ENLARGEMENT BASELINE ARTIFACT- I, III, AVL, AVF, V4-V6 BORDERLINE ECG No previous ECG available for comparison Electronically Signed On 09-05-2023 07:05:33 CDT by Epi Guy D.O.
[2023-09-04 21:02] LABS: Troponin I < 0.012 ng/mL (0.000-0.034)
[2023-09-04] MEDS: KETOROLAC 30 MG/ML VIAL (*BKC) IM (21:49)
[2023-09-04 22:26] LABS: Influenza A QL RT-PCR Negative (Negative); Influenza B QL RT-PCR Negative (Negative); RSV RNA, RT-PCR Negative (Negative); SARS-CoV-2 RNA PCR Negative (Negative)
== END 2023-09-04 21:55 | disposition home or self-care (01) ==
PROVIDERS: Nurse Practitioner Family; Emergency Provider Emergency Medicine; PCP Family Medicine
DX: R07.81 Pleurodynia (principal); Z20.822 Contact with and (suspected) exposure to COVID-19; I10 Essential (primary) hypertension; E78.49 Other hyperlipidemia; E55.9 Vitamin D deficiency, unspecified; K21.9 Gastro-esophageal reflux disease without esophagitis; R73.03 Prediabetes; G47.33 Obstructive sleep apnea (adult) (pediatric); Z98.84 Bariatric surgery status; R94.31 Abnormal electrocardiogram [ECG] [EKG]
CPT/HCPCS: 36415; 71046; 80053; 83690; 84484; 85025; 85610; 85730; 87637; 93005; 96372; 99284; J1885

== ENCOUNTER 2023-11-02 15:55 | Outpatient (CLI) | payer OTHER, SELFPAY ==
[2023-11-02 16:23] LABS: Basophils Percent Auto 0.7 % (0.2-1.2); Eosinophils Absolute Auto 0.2 K/mm3 (0-0.3); Eosinophils Percent Auto 4.1 % (0-4.4); Hematocrit 39.7 % (37.0-47.0); Lymphocytes Absolute Auto 1.74 K/mm3 (0.9-3.2); Lymphocytes Percent Auto 39.5 % (18.3-44.2); Mean Corpuscular HGB Conc 32.7 g/dl (32-36); Mean Corpuscular Hemoglobin 30.2 pg (26-34); Mean Corpuscular Volume 92.3 fl (80-100); Mean Platelet Volume 11.2 fl (7.4-10.4); Monocytes Absolute Auto 0.4 K/mm3 (0.1-0.6); Monocytes Percent Auto 8.2 % (2.6-8.5); Neutrophils Absolute Auto 2.1 K/mm3 (1.3-6.7); Neutrophils Percent Auto 47.5 % (45.5-73.1); Platelet Count Result 188 k/mm3 (150-375); Red Cell Distribution Width 12.4 % (11.5-14.5); White Blood Count 4.4 K/mm3 (4.5-10.0)
[2023-11-02 16:35] LABS: Alanine Aminotransferase 21 U/L (6-35); Albumin Level 4.2 g/dL (3.5-5.1); Alkaline Phosphatase 58 U/L (38-126); Anion Gap 7 mmol/L (4-12); Aspartate Amino Transferase 32 U/L (14-36); Bilirubin,Total 0.3 mg/dL (0.2-1.3); Blood Urea Nitrogen 18 mg/dL (7-17); Calcium 8.7 mg/dL (8.4-10.2); Carbon Dioxide 30 mmol/L (22-30); Chloride 96 mmol/L (98-107); Estimated Glomerular Filt Rate 57; Glucose 70 mg/dL (65-110); Potassium 3.7 mmol/L (3.4-5.0); Sodium 133 mmol/L (137-145)
[2023-11-02 16:42] LABS: Immunoglobulin A 630 mg/dL (70-400); Immunoglobulin G 1276 mg/dL (700-1600)
[2023-11-02 16:54] LABS: Immunoglobulin M < 25 mg/dL (40-230)
[2023-11-04 06:44] LABS: Protein, Total 6.7 g/dL (6.1-8.1)
[2023-11-05 11:49] LABS: Kappa\\Lambda Light Chains 1.99 (0.26-1.65)
[2023-11-05 13:19] LABS: Abnormal Protein Band 1 0.5 g/dL (NONE DETECTED); Albumin 3.8 g/dL (3.8-4.8); Alpha 1 Globulin 0.2 g/dL (0.2-0.3); Alpha 2 Globulin 0.5 g/dL (0.5-0.9); Beta 1 Globulin 0.5 g/dL (0.4-0.6)
== END 2023-11-02 15:56 | disposition home or self-care (01) ==
LOC: ANHLAB 15:58
PROVIDERS: PCP Family Medicine; Visit Provider Internal Medicine Hematology & Oncology
DX: D47.2 Monoclonal gammopathy (principal)
CPT/HCPCS: 36415; 80053; 82784; 83883; 84155; 84165; 85025

== ENCOUNTER 2023-12-11 10:58 | Outpatient (CLI) | payer OTHER, SELFPAY ==
[2023-12-11 11:26] LABS: Creatinine Urine 283.3 mg/dL
[2023-12-11 11:29] LABS: Albumin Level 4.4 g/dL (3.5-5.1); Anion Gap 8 mmol/L (4-12); Blood Urea Nitrogen 16 mg/dL (7-17); Carbon Dioxide 29 mmol/L (22-30); Chloride 102 mmol/L (98-107); Estimated Glomerular Filt Rate 57; Glucose 96 mg/dL (65-110); Potassium 3.8 mmol/L (3.4-5.0); Sodium 139 mmol/L (137-145)
[2023-12-11 12:18] LABS: Total Protein Urine Random < 5 mg/dL
[2023-12-11 12:19] LABS: Ur Ttl Prot Creatinine Ratio < 0.02 mg/mg (0-0.20)
== END 2023-12-11 10:59 | disposition home or self-care (01) ==
LOC: ANHLAB 10:59
PROVIDERS: PCP Family Medicine; Visit Provider Internal Medicine Nephrology
DX: I12.9 Hypertensive chronic kidney disease with stage 1 through stage 4 chronic kidney disease, or unspecified chronic kidney disease (principal); N18.31 Chronic kidney disease, stage 3a
CPT/HCPCS: 36415; 80069; 82570; 84156

== ENCOUNTER 2023-12-25 15:05 | Outpatient (CLI) | payer OTHER, SELFPAY ==
--- NOTE | ~2023-12-25 | MM_ITS ---
EXAMINATION: MM screening christian BI w medardo HISTORY: Screening TECHNIQUE: Craniocaudal and mediolateral oblique 3-D tomosynthesis images were obtained and synthetic 2-D images were generated. CAD analysis was submitted and interpreted. COMPARISON: Comparison to multiple prior studies sequentially, with oldest reviewed study dated 03/2018. BREAST PARENCHYMAL COMPOSITION: Not dense: There are scattered areas of fibroglandular density. FINDINGS: There is no evidence of suspicious mass, calcification, or architectural distortion to sugg est malignancy in either breast. There has been no suspicious interval change. IMPRESSION: 1. No mammographic evidence of malignancy. 2. Recommend routine screening mammography in one year. BI-RADS Category 1: Negative Reviewed, dictated and finalized at location B. 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
== END 2023-12-25 15:06 | disposition home or self-care (01) ==
LOC: ANHIMG 15:18
PROVIDERS: PCP Family Medicine; Visit Provider Nurse Practitioner
DX: Z12.31 Encounter for screening mammogram for malignant neoplasm of breast (principal)
CPT/HCPCS: 77063; 77067

== ENCOUNTER 2024-01-29 07:52 | Outpatient (CLI) | payer OTHER, SELFPAY ==
[2024-01-29 08:13] LABS: Basophils Percent Auto 0.5 % (0.2-1.2); Eosinophils Percent Auto 0.8 % (0-4.4); Hemoglobin 12.9 g/dL (12.0-15.0); Immature Granulocyte Absolute 0.01 K/mm3 (0.00-0.031); Immature Granulocyte Percent A 0.3 % (0-0.5); Immature Platelet Fraction Pct 11.1 % (0.9-11.2); Lymphocytes Absolute Auto 1.47 K/mm3 (0.9-3.2); Lymphocytes Percent Auto 38.3 % (18.3-44.2); Mean Corpuscular HGB Conc 31.5 g/dl (32-36); Mean Corpuscular Hemoglobin 29.9 pg (26-34); Mean Corpuscular Volume 94.9 fl (80-100); Mean Platelet Volume 11.6 fl (7.4-10.4); Monocytes Absolute Auto 0.3 K/mm3 (0.1-0.6); Monocytes Percent Auto 7.3 % (2.6-8.5); Neutrophils Percent Auto 52.8 % (45.5-73.1); Platelet Count Result 57 k/mm3 (150-375); Red Blood Count 4.32 M/mm3 (4.2-5.4); Red Cell Distribution Width 12.1 % (11.5-14.5); White Blood Count 3.8 K/mm3 (4.5-10.0)
[2024-01-29 08:25] LABS: Alanine Aminotransferase 18 U/L (6-35); Albumin Level 4.2 g/dL (3.5-5.1); Alkaline Phosphatase 52 U/L (38-126); Aspartate Amino Transferase 30 U/L (14-36); Bilirubin,Total 0.9 mg/dL (0.2-1.3); Cholesterol 195 mg/dL (0-200); HDL Direct 84 mg/dL; Magnesium 2.2 mg/dL (1.6-2.3); Triglycerides 51 mg/dL (<150)
[2024-01-29 08:36] LABS: LDL Cholesterol Direct 92 mg/dL
[2024-01-29 09:16] LABS: Iron 95 ug/dL (37-170)
[2024-01-29 09:27] LABS: Percent Iron Saturation 29 % (20-50)
== END 2024-01-29 07:53 | disposition home or self-care (01) ==
LOC: ANHLAB 07:54
PROVIDERS: PCP Family Medicine; Visit Provider Family Medicine
DX: R53.83 Other fatigue (principal); I10 Essential (primary) hypertension; Z98.84 Bariatric surgery status; E78.2 Mixed hyperlipidemia; R25.2 Cramp and spasm
CPT/HCPCS: 36415; 80061; 80076; 82607; 82728; 83540; 83550; 83735; 85025; 85055

== ENCOUNTER 2024-03-03 15:15 | Emergency (ER) | payer OTHER, SELFPAY ==
--- NOTE | ~2024-03-03 | XR_ITS ---
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 RESULT: Lines, tubes, and devices: None. Lungs and pleura: Clear. Cardiomediastinal silhouette: Stable. Other: No acute osseous or upper abdominal finding. IMPRESSION: No acute cardiopulmonary process. Reviewed, dictated and finalized at location K. OPRACTIC TEACHER
[2024-03-03 15:40] VITALS: BP 138/91; PULSE 83; RESP 18; TEMP 36.8; O2SAT 100
--- NOTE | 2024-03-03 15:46 | ED.URI ---
HPI - URI/Sore Throat General Chief Complaint: Upper Respiratory Infection Stated Complaint: Congestion / body aches Time Seen by Provider: 03/03/24 15:48 Source: patient Mode of arrival: ambulatory Limitations: no limitations History of Present Illness HPI Narrative: 54-year-old female presented for complaint of cough, body aches and fatigue. Onset last night. Endorses pain with deep breathing and chest feels heavy. Denies Nausea vomiting diarrhea lethargy. Has not taken anything for symptoms. Related Data Home Medications ?Medication ?Instructions ?Recorded ?Confirmed ?Last Taken ?Type ergocalciferol (vitamin D2) 1,250 1,250 mcg PO 2XW 06/03/21 01/11/24 Unknown History mcg (50,000 unit) capsule semaglutide (weight loss) 1 mg/0.5 2.6 mg subcut WEEKLY 04/13/23 01/11/24 Unknown History mL subcutaneous pen injector (Wegovy) Allergies Allergy/AdvReac Type Severity Reaction Status Date / Time No Known Allergies Allergy Verified 03/03/24 15:49 Review of Systems Review of Systems: CONSTITUTIONAL: Reports body aches, denies fever, chills, or sweats. EYES: Denies visual changes, redness, or discharge. ENT: Denies rhinorrhea, congestion, sore throat, or otalgia. CARDIOVASCULAR: Denies chest pain, palpitations, or edema. RESPIRATORY: Reports cough, denies sob, wheezing. GASTROINTESTINAL: Denies abdominal pain, nausea, vomiting, or diarrhea. SKIN: Denies rash, itching, or wounds. NEUROLOGIC: Denies headache All systems reviewed & are unremarkable except as noted in HPI and below PMFSH Past Medical History Medical History Colon cancer screening Dyspnea Acute sinusitis Acute bronchitis Cough Obstructive sleep apnea Suspected COVID-19 virus infection Migraine Acute sinusitis Encounter for monitoring diuretic therapy Essential hypertension (~2009) Gastroesophageal reflux disease without esophagitis Other allergic rhinitis Other hyperlipidemia Prediabetes Vitamin D deficiency HTN (hypertension) Surgical History Surgical History History of bilateral breast reduction surgery H/O bariatric surgery H/O section Family History Family History Mother Hypertension Father Family history of malignant neoplasm Patient's father is Stomach cancer Sibling Depression Other Asthma Grandparent Diabetes mellitus Other Family history of lung cancer Social History Social History Smoking status: Never smoker Second hand tobacco smoke exposure: No Alcohol intake: never Substance use: never Substance use type: does not use Do You Feel Safe in your Home?: Yes Lack of Transportation: No Lack of Food: Sometimes True Current Housing: I Have Housing Concerned About Future Housing: No Difficulty Paying Gas/Electric Bills: YES Difficulty Paying for Meds: No Currently Unemployed: No Education: High School Diploma/GED Difficulty w/ Childcare or Family Care: No Living arrangements: with family Occupation/Education: occupation Gender identity (if verbalized by the patient): Female Sexual Orientation (if Verbalized by the Patient): Straight or Heterosexual Spiritual care concerns: No Agree to blood products: Yes Comments At time of signature, I have reviewed and agree with nursing past medical, surgical, social and family history unless otherwise noted. Please see nursing chart for further information. There is no relevant family history pertinent to the presenting complaint Exam Narrative: GENERAL: mildly ill-appearing EYES: EOMI. No redness or drainage. Conjunctivae normal. ENT: Mucous membranes pink and moist. No rhinorrhea. TMs normal bilaterally. Throat normal. Uvula midline. NECK: Normal AROM. Supple. CHEST: No respiratory distress. Lungs clear to all krishnan. HEART: Regular rate and rhythm. No murmur appreciated. SKIN: Warm, dry, Capillary refill normal. Normal skin turgor. NEURO: Alert and oriented x3. Gait steady. PSYCH: Normal affect. Course Course Emergency Course: Patient is aware of diagnosis, understands and agrees to treatment plan. Anticipatory guidance given. Patient agrees to follow-up as directed and is aware of reasons to seek care at the emergency department. Portions of this record may have been created with voice recognition software Level of Care: Express Care Visit Vital Signs Vital signs: Vital Signs Temperature 98.3 F 03/03/24 15:40 Pulse Rate 83 03/03/24 15:40 Respiratory Rate 18 03/03/24 15:40 Blood Pressure 138/91 H 03/03/24 15:40 Pulse Oximetry 100 03/03/24 15:40 Oxygen Delivery Room Air 03/03/24 15:40 Temperature 98.3 F 03/03/24 15:40 Pulse Rate 83 03/03/24 15:40 Respiratory Rate 18 03/03/24 15:40 Blood Pressure 138/91 H 03/03/24 15:40 Pulse Oximetry 100 03/03/24 15:40 Oxygen Delivery Room Air 03/03/24 15:40 MDM - URI/Sore Throat MDM Narrative Medical decision making narrative: Results of flu and COVID reviewed with patient. CXR reviewed with pt. Advised retesting, and if no improvement she can start abx given hx pna. Discussed physical exam findings. Advised supportive measures and signs/symptoms to go to the ER. Pt is appropriate for outpt treatment and f/u. Differential Diagnosis Differential diagnosis: Likely upper respiratory infection, sinusitis, viral infection, bronchitis, influenza and pharyngitis Lab Data Labs: Lab Results 03/03/24 Range/Units 16:19 POC Influenza A Ag Negative (Negative) POC Influenza B Ag Negative (Negative) POC SARS CoV-2 Ag Negative (Negative) Imaging Data Radiologist's impression: Patient: Mercedez Weiss : 1970 MR#: [id number] Age: 54 Acct:[id number] Loc: [facility] ADM Date: 03/03/24Attending Dr: Ordering Physician: Shanta Vazquez APRN Date of Service: 03/03/24 Procedure(s): XR chest 2V Accession Number(s): [id number] cc: Philomena Hunt MD; Shanta Vazquez APRN~ EXAMINATION: XR chest 2V Exam Date/Time: 03/03/2024 16:16 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 RESULT: Lines, tubes, and devices: None. Lungs and pleura: Clear. Cardiomediastinal silhouette: Stable. Other: No acute osseous or upper abdominal finding. IMPRESSION: No acute cardiopulmonary process. Discharge Plan Discharge Clinical Impression: Bronchitis Patient Disposition: Home, Self-Care Condition: Stable Instructions: Antibiotic Form, Acute Bronchitis (ED) Additional Instructions: flu negative Your rapid covid test was negative today. It may be too early to detect the virus, therefore we recommend retesting at home in 1-2 days Continue to follow general precautions: frequent handwashing, wear a mask, isolate/social distance, and avoid crowds if you have a fever. You must be fever free for 24 hours without the use of fever reducing medication (Tylenol/ibuprofen) before returning to work/school/crowds. Recommend Flonase spray and Zyrtec (or Claritin/Daphne) over the counter Cough syrup may cause drowsiness; avoid driving or take it at night time. Tylenol 1000mg every 8 hours as needed for pain Symptomatic treatment includes: rest, fluids, and increase humidity of the air at home. If you continue to test negative for viral infections (flu and covid) and cough/fever/shortness of breath persist you can start the antibiotic Follow up with your primary care provider as needed in 1 week Go to the ER for worsening symptoms or concerns Patient Language: Hebrew Prescriptions: New azithromycin [Zithromax Z-Aaron] 250 mg tablet See Rx Instructions .ROUTE .COMPLEX Qty: 6 0RF Rx Instructions: For 250 mg dose pack: take 500 mg today (day 1), then 250 mg for 4 days (days 2-5) No Action ergocalciferol (vitamin D2) 1,250 mcg (50,000 unit) capsule 1,250 mcg PO 2XW sumatriptan succinate 50 mg tablet See Rx Instructions PO .COMPLEX Qty: 7 0RF Rx Instructions: take 1 tab at onset of headache; if no relief may repeat 1 tab after at least 2 hrs; max = 4 tabs/24 hr PO escitalopram oxalate 10 mg tablet 10 mg PO DAILY Qty: 30 3RF famotidine 40 mg tablet 40 mg PO DAILY Qty: 90 1RF Wegovy 1 mg/0.5 mL pen injector 2.6 mg subcut WEEKLY Rx Instructions: administer weeks 9 through 12 of therapy montelukast 10 mg tablet 10 mg PO DAILY Qty: 90 1RF Rx Instructions: at hs bupropion HCl 150 mg tablet extended release 24 hr 150 mg PO QAM Qty: 30 2RF amlodipine 10 mg tablet 10 mg PO DAILY Qty: 90 2RF lisinopril 40 mg tablet 40 mg PO DAILY Qty: 90 2RF fluticasone propionate 50 mcg/actuation spray,suspension See Rx Instructions .ROUTE .COMPLEX Qty: 48 3RF Dose Instruction: USE 2 SPRAYS IN EACH NOSTRIL DAILY Rx Instructions: USE 2 SPRAYS IN EACH NOSTRIL DAILY labetalol 100 mg tablet 200 mg PO Q12H Qty: 60 3RF Follow-up/Referrals: Philomena Hunt MD [Primary Care Provider] - Time of Disposition: 17:02
[2024-03-03 16:23] LABS: EDCOVIDSCREEN Negative (Negative); EDINFLUASCREEN Negative (Negative); EDINFLUBSCREEN Negative (Negative)
== END 2024-03-03 17:04 | disposition home or self-care (01) ==
PROVIDERS: Emergency Provider Nurse Practitioner Family; PCP Family Medicine
DX: J40 Bronchitis, not specified as acute or chronic (principal); I10 Essential (primary) hypertension; Z20.822 Contact with and (suspected) exposure to COVID-19
CPT/HCPCS: 71046; 87426; 87804; 99213; G0463

== ENCOUNTER 2024-05-17 10:27 | Outpatient (CLI) | payer OTHER, SELFPAY ==
--- NOTE | ~2024-05-17 | DEXA_ITS ---
Bone Density Report Name: VELASQUEZ HANSON Age: 54 Sex: Female Ethnicity: Black Date of : 1970 Indication: postmenopausal; screening for osteoporosis; height loss; hysterectomy; Referring Provider: ELA, SALLY Study: Bone densitometry was performed. Exam Date: May 17, 2024 Accession number: [id number] Bone Density: Region BMD T-score Z-score Classification AP Spine(L1-L4) 0.951 -0.9 -0.8 Normal Femoral Neck (Left) 0.685 -1.5 -1.2 Osteopenia Total Hip (Left) 0.899 -0.4 -0.4 Normal Femoral Neck (Right) 0.674 -1.6 -1.3 Osteopenia Total Hip (Right) 0.870 -0.6 -0.6 Normal Total Hip Mean 0.885 -0.5 -0.5 Normal World Health Organization criteria for BMD impression classify patients as: Normal (T-score at or above -1.0), Osteopenia (T-score between -1.0 and -2.5), or Osteoporosis (T-score at or below -2.5). 10-year Fracture Risk(1): Major Osteoporotic Fracture 2.4% Hip Fracture 0.2% Reported Risk Factors: [place] (Black), Neck BMD=0.674, BMI=28.9 (1) FRAX(R) Version 3.08. Fracture probability calculated for an untreated patient. Fracture probability may be lower if the patient has received treatment. Previous Exams: Region Exam Age BMD T-score BMD Change BMD Change Date g/cm2 vs Baseline vs Previous AP Spine (L1-L4) 05/17/2024 54 0.951 -0.9 -0.100 (-9.5%) -0.100 (-9.5%) 11/02/2019 49 1.050 0.0 Total Hip(Left) 05/17/2024 54 0.899 -0.4 -0.114 (-11.2% -0.114 (-11.2% 11/02/2019 49 1.013 0.6 Total Hip(Right) 05/17/2024 54 0.870 -0.6 -0.169 (-16.2% -0.169 (-16.2% 11/02/2019 49 1.039 0.8 *Denotes significance at 95% confidence level, LSC for AP Spine = 0.022 g/cm2, LSC for Total Hip = 0.027 g/cm2 # Denotes dissimilar scan types or analysis methods Clinical Information Provided by Patient: Has used the following medications: Vitamin D, Calcium Has the following medical conditions: Hysterectomy Patient maximum height was 63 Menopause Age: 44 No regular weight bearing exercise Drinks caffeinated beverages Onset of menses at age 17 Number of children 2 Impression: The patient has low bone mass, based on the Right Femoral Neck T-score. The patient has an estimated ten-year risk of hip fracture of 0.2% and an estimated ten-year risk of major fracture of 2.4%, based on the WHO FRAX algorithm. No significant bone loss was observed. Discussion: BONE DENSITY IS LOW AT ONE OR MORE SKELETAL SITES. This patient's lowest T-score is low at one or more skeletal sites. It meets the World Health Organization's (WHO) criteria for ?low bone mass? (T-score between -1.0 and -2.5). The patient's 10-year risk of fracture as calculated by FRAX is less than the threshold where pharmacological therapy is recommended by the National Osteoporosis Foundation (NOF). However, all treatment decisions require clinical judgment and consideration of individual patient factors, including patient preferences, comorbidities, previous drug use, risk factors not captured in the FRAX model (e.g., frailty, falls, vitamin D deficiency, increased bone turnover, interval significant decline in bone density) and possible under or overestimation of fracture risk by FRAX. The patient should follow a healthful lifestyle (good nutrition with adequate calcium and vitamin D, and appropriate weight-bearing exercise). Follow-Up: Consider repeating this study in 2 to 3 years to reassess this patient's status, or sooner if there is some new clinical indication. Reported by: KATHI on 05/17/2024 11:56:00 AM. Reviewed, dictated and finalized at location [facility]
--- OUTSIDE RECORDS SUMMARY | 2024-05-17 12:20 | XMS_ITS | Clinical Summary ---
Author Organization [facility] Address [address] [place] [id number] Care Team Providers Care Store Product Demonstrator Name Role Phone Philomena Hunt MD Primary Care Provider [phone] Allergies No known active allergies Medications magnesium oxide 400 MG tablet Take 400 mg by mouth daily. Active topiramate 25 MG tablet Take 50 mg by mouth daily. Active labetalol 100 MG tablet Take 100 mg by mouth 2 (two) times daily. 10/27/2018 Active amLODIPine 10 MG tablet Take 10 mg by mouth daily. Active pantoprazole EC 40 MG tablet Take 1 tablet by mouth daily. 11/30/2018 Active acetaminophen 500 MG tablet Take 1,000 mg by mouth every 6 (six) hours as needed for Pain or Fever. Active Active Problems Problem Noted Date Diagnosed Date COVID-19 virus infection 06/03/2019 Hypertension 01/05/2019 Dyspnea on exertion 01/05/2019 Social History Tobacco Use Types Packs/Day Years Used Date Smoking Tobacco: Never Smokeless Tobacco: Never Alcohol Use Standard Drinks/Week Comments Not Currently 0 (1 standard drink = 0.6 oz pur e alcohol) Comments No Sex and Gender Information Value Date Recorded Sex Assigned at Not on file Legal Sex Female 8:39 PM CDT Gender Identity Not on file Sexual Orientation Not on file Last Filed Vital Signs Vital Sign Reading Time Taken Comments Blood Pressure 137/69 06/11/2019 7:45 AM CDT Pulse 89 06/11/2019 7:45 AM CDT Temperature 37 C (98.6 F) 06/11/2019 7:45 AM CDT Respiratory Rate 9 06/11/2019 7:45 AM CDT Oxygen Saturation 96% 06/11/2019 7:45 AM CDT Inhaled Oxygen Concentration - - Weight 104.4 kg (230 lb 2.6 oz) 06/09/2019 5:30 AM CDT Height 157.5 cm (5' 2 ) 06/04/2019 2:11 AM CDT Body Mass Index 42.1 06/04/2019 2:11 AM CDT Plan of Treatment Health Maintenance Due Date Last Done Comments Colorectal Cancer Screening Colonoscopy (10 Years) 1972 Annual Physical 01/13/1975 Hepatitis C 01/13/1990 DTaP, Tdap and Td Vaccines ( 1 - Tdap) 01/13/1991 Hepatitis B Vaccines (1 of 3 - 19+ 3-dose series) 01/13/1991 Mammogram Screening 2012 Zoster Vaccines (1 of 2) 01/13/2022 COVID-19 Vaccine (2023-2 5 season) 2023 Influenza Adult (#1) 2023 Meningococcal B Vaccine Aged Out No l onger eligible based on patient's age to complete this topic Meningococcal Vaccine Aged Out No genesis hari eligible based on patient's age to complete this topic Pneumococcal Vaccine: Pediat rics (0 to 5 Years) and At-Risk Patients (6 to 64 Years) Aged Out No longer eligible b ased on patient's age to complete this topic RSV Immunizations Under 20 Months Aged Out No longer eligible based on patient's age to complete this topic Insurance [id number] Advance Directives * Full Code (Latest Code Status on File) Date Activated Date Inactivated Comments 06/04/2019 2:06 AM 06/11/2019 6:55 PM Care Teams Store Product Demonstrator Relationship Specialty Start Date End Date Philomena Hunt MD PCP - General FAMILY PRACTICE 06/03/19
--- OUTSIDE RECORDS SUMMARY | 2024-05-17 12:20 | XMS_ITS | CONTINUITY OF CARE DOCUMENT ---
Author Name belkis tamayo Address Unknown Organization [facility] Address [address] [place] [address] [address] [place] [address] Phone [phone] Care Team Providers Care Roving Winder Name Role Phone GINA JOE MD Unavailable INSURANCE PROVIDERS Payer name Policy type / Coverage type Skye red libertarian ID [facility] [id number] Other [id number]
--- OUTSIDE RECORDS SUMMARY | 2024-05-17 12:20 | XMS_ITS | Encounter Summary ---
Author Organization [facility] Address [address] [place] [address] Care Team Providers Care Bat Boy/Girl Name Role Phone Philomena Hunt MD Primary Care Provider [phone] Encounter Details Date Type Department Care Team (Late Contact Info) Description 07/12/2019 Abstract [facility] Operating Room [address] [address] Phi Wen MD [address] [place] [address] Social History Tobacco Use Types Packs/Day Years Used Date Smoking Tobacco: Never Assessed Comments Unknown Sex and Gender Information Value Date Recorded Sex Assigned at Not on file Legal Sex Female 11:45 AM CDT Gender Identity Not on file Sexual Orientation Not on file documented as of this encounter Plan of Treatment Upcoming Encounters Date Type Department Care Team (Late Contact Info) Description 08/11/2024 10:00 AM CDT Office Visit [facility] Oncology and Hematology - [place] [address] [facility] [address] [place] [address] Dax Bianchi MD [address] [facility] [address] [place] [address] documented as of this encounter Visit Diagnoses Not on filedocumented in this encounter Additional Health Concerns Infection Onset Date Last Indicated Resolved Time COVID-19 07/29/2019 07/29/2019 08/28/2019 1:16 AM CDT documented as of this encounter Care Teams Bat Boy/Girl Relationship Specialty Start Date End Date Philomena Hunt MD [address] [place] [address] PCP - General Family Practice 07/20/19 documented as of this encounter
--- OUTSIDE RECORDS SUMMARY | 2024-05-17 12:21 | XMS_ITS | Referral Summary ---
Author Organization [facility] Address [address] [place] [address] Care Team Providers Care Welfare Worker Name Role Phone Philomena Hunt MD Primary Care Provider [phone] Allergies No known active allergies Medications pantoprazole DR (PROTONIX) 40 mg EC tablet Take 1 tablet by mouth daily 11/30/2018 Active amLODIPine (NORVASC) 10 mg tablet Take 10 mg by mouth daily Active lisinopriL (PRINIVIL,ZESTR [place]) 40 mg tablet Take 40 mg by mouth daily Active montelukast (SINGULAIR) 10 mg tablet Take 10 mg by mouth daily as needed 12/03/2019 Active ergocalciferol (VITAMIN D) 50,000 unit capsule Take 50,000 Units by mouth once a week 02/15/2020 Active estradioL (ESTRACE) 2 mg tablet Take 1 mg by mouth daily Active chlorthalidone 25 mg tablet Take 12.5 mg by mouth daily 07/05/2021 Active predniSONE (DELTASONE) 20 mg tablet Take 40 mg by mouth daily 06/28/2021 Active benzonatate (TESSALON) 200 mg capsule TAKE 1 CAPSULE BY MOUTH THREE TIMES DAILY NEEDED FOR COUGH 06/28/2021 Active cetirizine (ZyrTEC) 10 mg tablet Take 10 mg by mouth daily 06/28/2021 Active labetaloL (NORMODYNE,VALDEZ DATE) 200 mg tablet Take 200 mg by mouth 2 (two) times a day Active venlafaxine (EFFEXOR) 37.5 mg tablet Take 37.5 mg by mouth 2 (two) times a day Active famotidine (PEPCID) 20 mg tablet Take 20 mg by mouth daily 06/18/2021 Active fluticasone propionate (FLONASE) 50 mcg/actuation nasal spray 06/04/2021 Active hydroCHLOROthia zide (MICROZIDE) 12.5 mg capsule Take 12.5 mg by mouth daily Active Active Problems Problem Noted Date Diagnosed Date Macromastia 08/17/2020 Uncontrolled hypertension 01/05/2019 Assessment & Plan (10/19/2019 10:45 AM CDT): Blood pressure is under good control since she has lost weight. The diastolic pressure is a little higher today but generally better by report. Will not make any changes in the regimen. She will continue to monitor as I suspect the blood pressure will continue to stabilize as she continues with weight loss. She was encouraged to follow low-sodium diet. Dyspnea on exertion 01/05/2019 Assessment & Plan (10/19/2019 10:45 AM CDT): Consistent with hypertensive heart disease by echo. This is improved with blood pressure control and weight loss. Follow Social History Tobacco Use Types Packs/Day Years Used Date Smoking Tobacco: Never Smokeless Tobacco: Never AUDIT-C Answer Date Recorded Q1: How often do you have a drink containing alc ohol? Monthly or less 08/08/2020 Q2: How many drinks containi ng alcohol do you have on a typical day when you are drinking? 1 or 2 08/08/2020 Q3: How often do you have si x or more drinks on one occasion? 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 Gender Identity Not on file Sexual Orientation Not on file Last Filed Vital Signs Vital Sign Reading Time Taken Comments Blood Pressure 144/80 10/16/2021 1:36 PM CDT Pulse 63 10/16/2021 1:36 PM CDT Temperature 36.5 C (97.7 F) 08/18/2020 8:50 AM CDT Respiratory Rate 16 08/18/2020 8:50 AM CDT Oxygen Saturation 98% 10/16/2021 1:36 PM CDT Inhaled Oxygen Concentration - - Weight 90.2 kg (198 lb 13.7 oz) 10/16/2021 1:36 PM CDT Height 158.8 cm (5' 2.5 ) 10/16/2021 1:36 PM CDT Body Mass Index 35.79 10/16/2021 1:36 PM CDT Plan of Treatment Not on file Insurance CHOICE PLUS CHOICE PLUS [id number] CHOICE PLUS Advance Directives For more information, please contact: [phone] * Full Code (Latest Code Status on File) Date Activated Date Inactivated Comments 08/17/2020 3:46 PM 08/18/2020 6:00 PM Care Teams Welfare Worker Relationship Specialty Start Date End Date Philomena Hunt MD PCP - General Family Medicine 11/03/18
--- OUTSIDE RECORDS SUMMARY | 2024-05-17 12:21 | XMS_ITS | Clinical Summary ---
Author Organization [facility] Address [address] [facility] [place] [address] Care Team Providers Care Game Tester Name Role Phone Philomena Hunt MD Primary Care Provider [phone] Source Comments [facility],non-owned Affiliates and Associated Physician Practices is amultiple site organization consisting of ambulatory clinics and hospital sitesin [place], [place], [place] and [place]. This disclosure is being madepursuant to the Care Everywhere program and may not contain all information available regarding this patient. Last updated 17.[facility] Allergies No known active allergies Medications Be aware that medications may not be up to date on this document. Always verify current medications with the patient. No known medications Active Problems Problem Noted Date Diagnosed Date Status post bilateral breast reduction Maternal age 37+, multigravida 03/13/2009 Social History Tobacco Use Types Packs/Day Years Used Date Smoking Tobacco: Never Assessed Sex and Gender Information Value Date Recorded Sex Assigned at Not on file Gender Identity Not on file Sexual Orientation Not on file Last Filed Vital Signs Vital Sign Reading Time Taken Comments Blood Pressure - - Pulse - - Temperature - - Respiratory Rate - - Oxygen Saturation - - Inhaled Oxygen Concentration - - Weight 90.7 kg (200 lb) 12/04/2020 10:26 AM CDT Height 160 cm (5' 3 ) 12/04/2020 10:26 AM CDT Body Mass Index 35.43 12/04/2020 10:26 AM CDT Plan of Treatment Health Maintenance Due Date Last Done Comments COLOGUARD (AGES 45-75) - COL ON CA SCREENING 1972 COLON MONITORING 1972 COLONOSCOPY - COLON CA SCREENING 1972 CT COLONOGRAPHY - COLON CA SCREENING 1972 Colorectal Cancer Screening 1972 FIT - COLON CA SCREENING 1972 FLEX SIG - COLON CA SCREENING 1972 LIPID TESTING 1972 MAMMOGRAM 1972 PAP SMEAR 1972 HIV SCREENING 01/13/1987 HEPATITIS C SCREENING 01/09/1990 DTAP/TDAP/TD VACCINES (1 - Tdap) 01/13/1991 HEPATITIS B VACCINE (1 of 3 - 19+ 3-dose series) 01/13/1991 SCREENING FOR DIABETES 12/04/2020 PNEUMOCOCCAL VACCINE 50+ (1 of 1 - PCV) 01/13/2022 ZOSTER VACCINE (1 of 2) 01/13/2022 COVID-19 VACCINE (1 - 2023-2 5 season) 2023 INFLUENZA VACCINE (#1) 2023 11/26/2018 DEPRESSION SCREENING 02/24/2024 HIB VACCINE Aged Out No longer eligi ble based on patient's age to complete this topic HPV VACCINE Aged Out No longer eligi ble based on patient's age to complete this topic MENINGOCOCCAL (Group B) VACC INE SHARED DECISION-MAKING Aged Out No longer eligibl e based on patient's age to complete this topic MENINGOCOCCAL GROUPS A/C/Y/W VACCINE Aged Out No longer eligible b ased on patient's age to complete this topic PNEUMOCOCCAL VACCINE Aged Out No long er eligible based on patient's age to complete this topic Care Teams Game Tester Relationship Specialty Start Date End Date Philomena Hunt MD [address] [place] [address] PCP - General 02/19/09
--- OUTSIDE RECORDS SUMMARY | 2024-05-17 12:21 | XMS_ITS | Clinical Summary ---
Author Organization [facility] Address [address] [place] [address] Care Team Providers Care Center Mgr Name Role Phone Philomena Hunt MD Primary Care Provider [phone] Allergies No known active allergies Medications pantoprazole [...] blood pressure control and weight loss. 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 Gender Identity Not on file Sexual Orientation Not on file Obstetrics History Last Filed Vital Signs Vital Sign Reading [...] 10/16/2021 1:36 PM CDT Plan of Treatment Health Maintenance Due Date Last Done Comments Breast Cancer Screening-Mammogram 1972 Colon Cancer Screening-Colonoscopy 1972 Depression Screening 1972 Hepatitis C Screening 1972 DTaP/Tdap/Td Vaccine (1 - Tdap) 01/13/1983 Hepatitis B Screening 01/13/1990 Regular Well Visit/Exam 18-64 01/13/1990 Zoster Vaccine (1 of 2) 01/13/2022 Influenza Vaccine (#1) 2023 9, 11/23/2017 Pneumococcal vaccine <65 Aged Out No longer eligible based on patient's age to complete this topic Insurance CHOICE PLUS Advance Directives For more information, please contact: [phone] * Full Code (Latest Code Status on File) Date Activated Date Inactivated Comments 08/17/2020 3:46 PM 08/18/2020 6:00 PM Care Teams Center Mgr Relationship Specialty Start Date End Date Philomena Hunt MD PCP - General Family Medicine 11/03/18
--- OUTSIDE RECORDS SUMMARY | 2024-05-17 12:21 | XMS_ITS | Encounter Summary ---
Author Organization [facility] Address [address] [place] [address] Care Team Providers Care Donor Relations Manager Name Role Phone Philomena Hunt MD Primary Care Provider Encounter Details Date Type Department Care Team ([facility] Contact Info) Description 08/22/2019 Abstract [facility] Operating Room [address] [address] Phi eWn MD [address] [place] [address] Social History Tobacco Use Types Packs/Day Years Used Date Smoking Tobacco: Never Smokeless Tobacco: Never Alcohol Use Standard Drinks/Week Comments Never 0 (1 standard drink = 0.6 oz pur e alcohol) Comments No Sex and Gender Information Value Date Recorded Sex Assigned at Not on file Legal Sex Female 11:45 AM CDT Gender Identity Not on file Sexual Orientation Not on file COVID-19 Exposure Response Date Recorded In the last month, have you been in contact with someone who was confirmed or suspected to have Coronavirus / COVID-19? No / Unsure 08/25/2019 10:44 AM CDT documented as of this encounter Plan of Treatment Upcoming Encounters Date Type Department Care Team ([facility] Contact Info) Description 08/11/2024 10:00 AM CDT Office Visit [facility] Oncology and Hematology - [place] [address] [facility] [address] [place] [address] Dax Bianchi MD [address] [facility] [address] [place] [address] documented as of this encounter Visit Diagnoses Not on filedocumented in this encounter Additional Health Concerns Infection Onset Date Last Indicated Resolved Time COVID-19 07/29/2019 07/29/2019 08/28/2019 1:16 AM CDT documented as of this encounter Care Teams Donor Relations Manager Relationship Specialty Start Date End Date Philomena Hunt MD [address] [place] [address] PCP - General Family Practice 07/20/19 documented as of this encounter
--- OUTSIDE RECORDS SUMMARY | 2024-05-17 12:21 | XMS_ITS | Clinical Summary ---
Author Organization [facility] Address [address] [facility] [address] [address] Phone Care Team Providers Care Surgery Scheduling Coordinator Name Role Phone Philomena Hunt MD Primary Care Provider [phone] Allergies No known active allergies Medications amLODIPine (NORVASC) 10 mg tablet Take 10 mg by mouth daily. Active lisinopriL (PRINIVIL) 40 mg tablet Take 40 mg by mouth daily. Active labetalol HCl (LABETALOL ORAL) Take by mouth. Activ e pantoprazole (PROTONIX) 20 mg Tablet, Delayed Release (E.C.) Take 20 mg by mouth daily. Active ondansetron (Zofran ODT) 4 mg Tablet, Rapid DissolveIndicat ions:nausea Place 1 Tablet (4 mg) under tongue every 6 hours as needed for Nausea/Vomiting. 10 Tablet 09/08/2019 2:55 PM CDT 0 Active ergocalciferol (VITAMIN D2) 50,000 unit capsule Take 50,000 Units by mouth. 0 Active calcium citrate 250 mg calcium Tablet Take 250 mg by mouth daily. Active Wegovy 2.4 mg/0.75 mL Pen Injector Inject 2.4 mg by subcutaneous injection every 7 days. 3 Active SUMAtriptan (IMITREX) 50 mg tablet Take 25 mg by mouth every 2 hours as needed for Headaches or Migraine. 3 Active Active Problems Problem Noted Date Diagnosed Date Renal insufficiency 08/31/2019 Poor fluid intake 08/31/2019 Hyponatremia 08/31/2019 Post-op pain 08/30/2019 Post-operative nausea and vomiting 08/30/2019 HTN (hypertension), benign 08/29/2019 General medical exam 08/29/2019 Gastroesophageal reflux disease without esophagi tis 08/29/2019 KAIA (obstructive sleep apnea) 08/29/2019 Encounters Date Type Department Care Team Description 05/11/2024 External Device Data ST[facility] ABSTRACTION Provider, Abstract 04/30/2024 External Device Data ST[facility] ABSTRACTION Provider, Abstract 04/29/2024 External Device Data ST[facility] ABSTRACTION Provider, Abstract 04/26/2024 External Device Data ST[facility] ABSTRACTION Provider, Abstract 04/12/2024 External Device Data ST[facility] ABSTRACTION Provider, Abstract 03/16/2024 External Device Data ST[facility] ABSTRACTION Provider, Abstract 03/15/2024 External Device Data ST[facility] ABSTRACTION Provider, Abstract 03/09/2024 External Device Data STL ABSTRACTION Provider, Abstract from Last 3 Months Immunizations Immunization Administration Dates Next Due Influenza Seasonal Unspecified Formulation IM Family History Medical History Relation Name Comments Stomach Cancer Father Relation Name Status Comments Brother Alive Daughter Alive Father Mother Alive Son Alive Social History Tobacco Use Types Packs/Day Years Used Date Smoking Tobacco: Never Smokeless Tobacco: Never Tobacco Cessation:Counseling Given: Not Answered Alcohol Use Standard Drinks/Week Comments Never 0 (1 standard drink = 0.6 oz pur e alcohol) Comments No Sex and Gender Information Value Date Recorded Sex Assigned at Not on file Legal Sex Female 11:45 AM CDT Gender Identity Not on file Sexual Orientation Not on file Last Filed Vital Signs Vital Sign Reading Time Taken Comments Blood Pressure 171/118 11/12/2023 11:16 AM CDT Pulse 67 11/12/2023 11:16 AM CDT Temperature 36.3 C (97.4 F) 11/12/2023 11:10 AM CDT Respiratory Rate 16 11/12/2023 11:10 AM CDT Oxygen Saturation 98% 11/12/2023 11:10 AM CDT Inhaled Oxygen Concentration - - Weight 71.2 kg (157 lb) 11/12/2023 11:10 AM CDT Height 160 cm (5' 3 ) 07/02/2022 1:31 PM CDT Body Mass Index 27.81 07/02/2022 1:31 PM CDT Plan of Treatment Upcoming Encounters Date Type Department Care Team (Late st Contact Info) Description 08/11/2024 10:00 AM CDT Office Visit [facility] Oncology and Hematology - [place] [address] [facility] [address] [place] [address] Dax Bianchi MD [address] [facility] [address] [place] [address] Health Maintenance Due Date Last Done Comments Pre-Diabetes and Diabetes Screening 1972 DTAP/TDAP/TD VACCINES (1 - Tdap) 01/13/1991 HEPATITIS B VACCINES (1 of 3 - 19+ 3-dose series) 01/13/1991 PAP SMEAR 01/13/2002 BREAST CANCER SCREENING 2012 COLORECTAL SCREENING 01/13/2017 Colorectal Cancer Screening 01/13/2017 FIT-DNA Q 3 years 01/13/2017 FIT/FOBT Q 1 year 01/13/2017 Flex Sig/CT Colonography Q 5 years 01/13/2017 ZOSTER VACCINE (1 of 2) 01/13/2022 INFLUENZA VACCINE (#1) 2023 11/26/2018 PNEUMOCOCCAL VACCINE 0-49 YEARS Aged Out No longer eligible based on patient's age to complete this topic Medical Devices Implanted Type Area Damage Prevention Coordinator Device Identifier Shelf Expiration Date Model / Serial / Lot Seamguard Endogia 60 [id number] [id number] - [id number] Implanted:Qty : 3 on 08/29/2019 by Phi Wen MD at [facility] Biological N/A: Stomach [employer] 10/25/2021 [id number] / / [id number] Seamguard Endogia 60 Blk [id number] - [id number] Implanted:Qty : 2 on 08/29/2019 by Phi Wen MD at [facility] Biological N/A: Stomach [employer] 07/23/2021 [id number] / / [id number] Insurance [facility] [id number] RX [employer] PLANS (INTERNAL) [facility] RX [employer] Advance Directives For more information, please contact: [phone] * Full Code (Latest Code Status on File) Date Activated Date Inactivated Comments 08/29/2019 10:36 AM 08/31/2019 8:38 PM * Full Code Date Activated Date Inactivated Comments 08/29/2019 6:57 AM 08/29/2019 10:36 AM Care Teams Surgery Scheduling Coordinator Relationship Specialty Start Date End Date Philomena Hunt MD [address] [place] [address] PCP - General Family Practice 07/20/19
== END 2024-05-17 10:28 | disposition home or self-care (01) ==
PROVIDERS: PCP Family Medicine; Visit Provider Nurse Practitioner Women's Health
DX: Z78.0 Asymptomatic menopausal state (principal); M85.852 Other specified disorders of bone density and structure, left thigh; M85.851 Other specified disorders of bone density and structure, right thigh
CPT/HCPCS: 77080

== ENCOUNTER 2024-06-18 10:45 | Outpatient (CLI) | payer OTHER, SELFPAY ==
--- OUTSIDE RECORDS SUMMARY | 2024-06-18 10:49 | XMS_ITS | Clinical Summary ---
Author Organization [facility] Address [address] [place] [address] Care Team Providers Care Global Account Manager Name Role Phone Philomena Hunt MD Primary Care Provider [phone] Source Comments [facility],non-owned Affiliates and Associated Physician Practices is amultiple site organization consisting of ambulatory clinics and hospital sitesin [place], [place], [place] and [place]. This disclosure is being madepursuant to the Care Everywhere program and may not contain all information available regarding this patient. Last updated 17.[facility] Allergies No known active allergies Medications * Be aware that medications may not be up to date on this document. Alwaysverify current medications with the patient. 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 Gender Identity Not on file Sexual Orientation [...] SCREENING 1972 LIPID TESTING 1972 MAMMOGRAM 1972 HIV SCREENING 01/13/1987 HEPATITIS C SCREENING 01/09/1990 DTAP/TDAP/TD VACCINES (1 - Tdap) 01/13/1991 HEPATITIS B VACCINE (1 of 3 - 19+ 3-dose series) 01/13/1991 SCREENING FOR DIABETES 12/04/2020 PNEUMOCOCCAL VACCINE 50+ (1 of 1 - PCV) 01/13/2022 ZOSTER VACCINE (1 of 2) 01/13/2022 COVID-19 VACCINE (1 - 2023-2 5 season) 2023 DEPRESSION SCREENING 02/24/2024 INFLUENZA VACCINE (Season Ended) 2024 11/27/19 19 HIB VACCINE Aged Out No longer eligi [...] patient's age to complete this topic Insurance [facility] Care Teams Global Account Manager Relationship Specialty Start Date End Date Philomena Hunt MD [address] [place] [address] PCP - General 02/19/09
--- OUTSIDE RECORDS SUMMARY | 2024-06-18 10:49 | XMS_ITS | CONTINUITY OF CARE DOCUMENT ---
Author Name belkis tamayo Address Unknown Organization [facility] Address [address] [place] [address] [address] [place] [address] Phone [phone] Care Team Providers Care Director Of Student Life Name Role Phone GINA JOE MD Unavailable INSURANCE PROVIDERS Payer name Policy type / Coverage type Skye red constitution party ID [facility] [id number] Other [id number]
--- OUTSIDE RECORDS SUMMARY | 2024-06-18 10:49 | XMS_ITS | Clinical Summary ---
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
--- OUTSIDE RECORDS SUMMARY | 2024-06-18 10:49 | XMS_ITS | Encounter Summary ---
Author Organization [facility] Address [address] [place] [address] Care Team Providers Care Sound Tester Name Role Phone Philomena Hunt MD Primary Care Provider [phone] Encounter Details Date Type Department Care Team ([facility] Contact Info) Description 08/22/2019 Abstract [facility] Operating Room [address] [address] Phi Wen MD [address] [place] [address] Social History Tobacco Use Types Packs/Day Years [...] Upcoming Encounters Date Type Department Care Team ([facility] Contact Info) Description 08/11/2024 10:00 AM CDT Office Visit [facility] Oncology and Hematology - [place] [address] [facility] [address] [place] [address] Dax Bianchi MD [address] [facility] [address] [place] [address] documented as of this encounter Visit Diagnoses Not on filedocumented in this encounter Additional Health Concerns Infection Onset Date Last Indicated Resolved Time COVID-19 07/29/2019 07/29/2019 08/28/2019 1:16 AM CDT documented as of this encounter Care Teams Sound Tester Relationship Specialty Start Date End Date Philomena Hunt MD [address] [place] [address] PCP - General Family Practice 07/20/19 documented as of this encounter
--- OUTSIDE RECORDS SUMMARY | 2024-06-18 10:49 | XMS_ITS | Clinical Summary ---
Author Organization [facility] Address [address] [facility] [address] [address] Phone Care Team Providers Care Supervisor Harvesting Name Role Phone Philomena Hunt MD Primary Care Provider [phone] Allergies No known active allergies Medications amLODIPine [...] Encounters Date Type Department Care Team Description 06/07/2024 External Device Data [facility] ABSTRACTION Provider, Abstract 05/11/2024 External Device Data [facility] ABSTRACTION Provider, [...] Description 08/11/2024 10:00 AM CDT Office Visit [facility] Oncology and Hematology - [place] [address] [place] [address] Dax Bianchi MD [address] [facility] [address] [place] [address] Health Maintenance Due Date Last Done Comments Pre-Diabetes and Diabetes Screening 1972 DTAP/TDAP/TD VACCINES (1 - Tdap) 01/13/1991 HEPATITIS B VACCINES (1 of 3 - 19+ 3-dose series) 12/25 BREAST CANCER SCREENING 2012 COLORECTAL SCREENING 01/13/2017 Colorectal Cancer Screening 01/13/2017 FIT-DNA Q 3 years 01/13/2017 FIT/FOBT Q 1 year 01/13/2017 Flex Sig/CT Colonography Q 5 years 01/13/2017 ZOSTER VACCINE (1 of 2) 01/13/2022 INFLUENZA VACCINE (#1) 2023 11/26/2018 Medical Devices Implanted Type Area Loss Prevention Guard Device Identifier Shelf Expiration Date Model / Serial / Lot Seamguard Endogia 60 Prpl [id number] - [id number] Implanted:Qty : 3 on 08/29/2019 by Phi Wen MD at [facility] Biological N/A: Stomach [employer] 10/25/2021 [id number] / / [id number] Seamguard Endogia 60 Blk [id number] - [id number] Implanted:Qty : 2 on 08/29/2019 by Phi Wen MD at [facility] Biological N/A: Stomach [employer] 07/23/2021 [id number] / / [id number] [place] [id number] Member Subscriber Plan / Payer (Ef fective 2020-Present) Name:Mercedez Weiss Relation to Subscriber:Self Name:Mercedez Weiss Payer ID:[id number] (NAIC) Type:PPO Address: [address] [place] [id number] RX [employer] PLANS (INTERNAL) [facility] Internal Plans RX [employer] Advance Directives For more information, please contact: [phone] * Full Code (Latest Code Status on File) Date Activated Date Inactivated Comments 08/29/2019 10:36 AM 08/31/2019 8:38 PM * Full Code Date Activated Date Inactivated Comments 08/29/2019 6:57 AM 08/29/2019 10:36 AM Care Teams Supervisor Harvesting Relationship Specialty Start Date End Date Philomena Hunt MD [address] [place] [address] PCP - General Family Practice 07/20/19
--- OUTSIDE RECORDS SUMMARY | 2024-06-18 10:49 | XMS_ITS | Referral Summary ---
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
--- OUTSIDE RECORDS SUMMARY | 2024-06-18 10:49 | XMS_ITS | Encounter Summary ---
Author Organization [facility] Address [address] [place] [address] Care Team Providers Care Legal Recovery Specialist Name Role Phone Philomena Hunt MD Primary Care Provider [phone] Encounter Details Date Type Department Care Team (Late Contact Info) Description 07/12/2019 Abstract [facility] Operating Room [address] [address] Phi Wen MD [address] [place] [address] Social History Tobacco Use Types Packs/Day Years Used Date Smoking Tobacco: Never Assessed Comments Unknown Sex and Gender Information Value Date Recorded Sex Assigned at Not on file Legal Sex Female 11:45 AM CDT Gender Identity Not on file Sexual Orientation Not on file documented as of this encounter Plan of Treatment Upcoming Encounters Date Type Department Care Team ([facility] Contact Info) Description 08/11/2024 10:00 AM CDT Office Visit [facility] Oncology and Hematology - [place] [address] [facility] [address] [place] [address] Dax Bianchi MD [address] [facility] [address] [place] [address] documented as of this encounter Visit Diagnoses Not on filedocumented in this encounter Additional Health Concerns Infection Onset Date Last Indicated Resolved Time COVID-19 07/29/2019 07/29/2019 08/28/2019 1:16 AM CDT documented as of this encounter Care Teams Legal Recovery Specialist Relationship Specialty Start Date End Date Philomena Hunt MD [address] [place] [address] PCP - General Family Practice 07/20/19 documented as of this encounter
--- OUTSIDE RECORDS SUMMARY | 2024-06-18 10:49 | XMS_ITS | Clinical Summary ---
Author Organization [facility] Address [address] [place] [address] Care Team Providers Care Coater Operator Name Role Phone Philomena Hunt MD Primary Care Provider Allergies No known active allergies Medications magnesium [...] 19+ 3-dose series) 01/13/1991 Mammogram Screening 2012 Pneumococcal Vaccine: 50+ Ye ars (1 of 1 - PCV) 01/13/2022 Zoster Vaccines (1 of 2) 01/13/2022 COVID-19 Vaccine (1 - 2023-2 5 season) 2023 Meningococcal B Vaccine Aged Out No l onger eligible based on patient's age to complete this topic Meningococcal Vaccine Aged Out No genesis hari eligible based on patient's age to complete this topic RSV Immunizations Under 20 Months Aged Out No longer eligible based on patient's age to complete this topic Insurance [facility] Advance Directives * Full Code (Latest Code Status on File) Date Activated Date Inactivated Comments 06/04/2019 2:06 AM 06/11/2019 6:55 PM Care Teams Coater Operator Relationship Specialty Start Date End Date Philomena Hunt MD PCP - General FAMILY PRACTICE 06/03/19
[2024-06-18 11:32] LABS: Basophils Percent Auto 0.6 % (0.2-1.2); Hematocrit 38.9 % (37.0-47.0); Hemoglobin 12.5 g/dL (12.0-15.0); Immature Granulocyte Absolute 0.01 K/mm3 (0.00-0.031); Immature Granulocyte Percent A 0.3 % (0-0.5); Lymphocytes Absolute Auto 1.38 K/mm3 (0.9-3.2); Lymphocytes Percent Auto 39.9 % (18.3-44.2); Mean Corpuscular HGB Conc 32.1 g/dl (32-36); Mean Corpuscular Hemoglobin 29.6 pg (26-34); Mean Platelet Volume 11.3 fl (7.4-10.4); Monocytes Absolute Auto 0.4 K/mm3 (0.1-0.6); Monocytes Percent Auto 10.1 % (2.6-8.5); Neutrophils Absolute Auto 1.7 K/mm3 (1.3-6.7); Neutrophils Percent Auto 49.1 % (45.5-73.1); Platelet Count Result 159 k/mm3 (150-375); Red Blood Count 4.23 M/mm3 (4.2-5.4); White Blood Count 3.5 K/mm3 (4.5-10.0)
[2024-06-18 11:56] LABS: Parathyroid Intact 61.2 pg/mL (14.5-75.2)
[2024-06-18 12:03] LABS: Albumin Level 4.4 g/dL (3.5-5.1); Anion Gap 10 mmol/L (4-12); Blood Urea Nitrogen 22 mg/dL (7-17); Calcium 8.8 mg/dL (8.4-10.2); Carbon Dioxide 26 mmol/L (22-30); Chloride 103 mmol/L (98-107); Estimated Glomerular Filt Rate 50; Glucose 51 mg/dL (65-110); Phosphorus 3.8 mg/dL (2.5-4.5); Potassium 3.8 mmol/L (3.4-5.0); Sodium 139 mmol/L (137-145)
[2024-06-18 12:20] LABS: Vitamin D 25 Hydroxy 38.7 ng/mL
[2024-06-18 12:21] LABS: Creatinine Urine 146.9 mg/dL
[2024-06-18 12:57] LABS: Total Protein Urine Random < 5 mg/dL; Ur Ttl Prot Creatinine Ratio < 0.03 mg/mg (0-0.20)
== END 2024-06-18 10:46 | disposition home or self-care (01) ==
PROVIDERS: PCP Family Medicine; Referring Provider Student in an Organized Health Care Education/Training Program; Visit Provider Internal Medicine Nephrology
DX: D72.819 Decreased white blood cell count, unspecified (principal); I12.9 Hypertensive chronic kidney disease with stage 1 through stage 4 chronic kidney disease, or unspecified chronic kidney disease; N18.31 Chronic kidney disease, stage 3a; N25.81 Secondary hyperparathyroidism of renal origin; E55.9 Vitamin D deficiency, unspecified
CPT/HCPCS: 36415; 80069; 82306; 82570; 83970; 84156; 85025

== ENCOUNTER 2024-07-25 11:10 | Outpatient (CLI) | payer OTHER, SELFPAY ==
[2024-07-25 11:40] LABS: Basophils Percent Auto 0.6 % (0.2-1.2); Hematocrit 39.6 % (37.0-47.0); Hemoglobin 12.9 g/dL (12.0-15.0); Lymphocytes Absolute Auto 1.25 K/mm3 (0.9-3.2); Lymphocytes Percent Auto 37.5 % (18.3-44.2); Mean Corpuscular HGB Conc 32.6 g/dl (32-36); Mean Corpuscular Hemoglobin 29.7 pg (26-34); Mean Platelet Volume 10.9 fl (7.4-10.4); Monocytes Absolute Auto 0.4 K/mm3 (0.1-0.6); Monocytes Percent Auto 10.5 % (2.6-8.5); Neutrophils Absolute Auto 1.7 K/mm3 (1.3-6.7); Neutrophils Percent Auto 51.4 % (45.5-73.1); Platelet Count Result 179 k/mm3 (150-375); Red Blood Count 4.35 M/mm3 (4.2-5.4); Red Cell Distribution Width 11.5 % (11.5-14.5); White Blood Count 3.3 K/mm3 (4.5-10.0)
--- OUTSIDE RECORDS SUMMARY | 2024-07-25 11:49 | XMS_ITS | Referral Summary ---
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 Gender Identity Not on file Sexual Orientation [...] 1:36 PM CDT Height 158.8 cm (5' 2.5) 10/16/2021 1:36 PM CDT Body Mass Index 35.79 10/16/2021 1:36 PM CDT Plan of Treatment Not on file Insurance CHOICE PLUS CHOICE PLUS [id number] CHOICE PLUS Advance Directives For more information, please contact: [phone] * Full Code (Latest Code Status on File) Date Activated Date Inactivated Comments 08/17/2020 3:46 PM 08/18/2020 6:00 PM Care Teams Adjunct Phlebotomy Instructor Relationship Specialty Start Date End Date Philomena Hunt MD PCP - General Family Medicine 11/03/18
--- OUTSIDE RECORDS SUMMARY | 2024-07-25 11:49 | XMS_ITS | Encounter Summary ---
Author Organization [facility] Address [address] [place] [address] Care Team Providers Care Hadoop Architect Name Role Phone Philomena Hunt MD Primary Care Provider [phone] Encounter Details Date Type Department Care Team (Late Contact Info) Description 07/12/2019 Abstract [facility] Operating Room [address] [address] Phi Wen MD [address] [place] [address] Social History Tobacco Use Types Packs/Day Years [...] Description 08/11/2024 10:00 AM CDT Office Visit [facility] Oncology and Hematology - [place] [address] [facility] [address] [place] [address] Dax Bianchi MD [address] [facility] [address] [place] [address] documented as of this encounter Visit Diagnoses Not on filedocumented in this encounter Additional Health Concerns Infection Onset Date Last Indicated Resolved Time COVID-19 07/29/2019 07/29/2019 08/28/2019 1:16 AM CDT documented as of this encounter Care Teams Hadoop Architect Relationship Specialty Start Date End Date Philomena Hunt MD [address] [place] [address] PCP - General Family Practice 07/20/19 documented as of this encounter
--- OUTSIDE RECORDS SUMMARY | 2024-07-25 11:49 | XMS_ITS | Clinical Summary ---
Author Organization [facility] Address [address] [place] [address] Care Team Providers Care Residential Worker Name Role Phone Philomena Hunt MD Primary Care Provider [phone] Source Comments [facility],non-owned Affiliates and Associated Physician Practices is amultiple site organization consisting of ambulatory clinics and hospital sitesin [place], [place], [place] and [place]. This disclosure is being madepursuant to the Care Everywhere program and may not contain all information available regarding this patient. 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 Gender Identity Not on file Sexual Orientation Not on file Last Filed Vital Signs Vital Sign Reading Time Taken Comments Blood Pressure - - Pulse - - Temperature - - Respiratory Rate - - Oxygen Saturation - - Inhaled Oxygen Concentration - - Weight 90.7 kg (200 lb) 12/04/2020 10:26 AM CDT Height 160 cm (5' 3) 12/04/2020 10:26 AM CDT Body Mass Index 35.43 12/04/2020 10:26 AM CDT Plan of Treatment Health Maintenance Due Date Last Done Comments COLOGUARD (AGES 45-75) - COLON CA SCREENING 1972 COLON MONITORING 1972 COLONOSCOPY [...] of 3 - 19+ 3-dose series) 01/13/1991 PNEUMOCOCCAL VACCINE 50+ (1 of 1 - PCV) 01/13/2022 ZOSTER VACCINE (1 of 2) 01/13/2022 SCREENING FOR DIABETES 06/10/2022 0, 06/11/2019, 06/10/2019, Additional history exists COVID-19 VACCINE ( - season) 2023 DEPRESSION SCREENING 02/24/2024 INFLUENZA VACCINE (Season Ended) 2024 11/26/2018 HIB VACCINE Aged Out No longer eligi ble based on patient's age to complete this topic HPV VACCINE Aged Out No longer eligi ble based on patient's age to complete this topic MENINGOCOCCAL (Group B) VACCINE SHARED DECISION-MAKING Aged Out No longer eligible based on patient's age to complete this topic MENINGOCOCCAL GROUPS A/C/Y/W VACCINE Aged Out No longer eligible based on patient's age to complete this topic Insurance [facility] Care Teams Residential Worker Relationship Specialty Start Date End Date Philomena Hunt MD [address] [place] [address] PCP - General 02/19/09
--- OUTSIDE RECORDS SUMMARY | 2024-07-25 11:49 | XMS_ITS | CONTINUITY OF CARE DOCUMENT ---
Author Name belkis tamayo Address Unknown Organization [facility] Address [address] [place] [address] [address] [place] [address] Phone [phone] Care Team Providers Care Depot Manager Name Role Phone GINA JOE MD Unavailable [phone] INSURANCE PROVIDERS Payer name Policy type / Coverage type Skye red alliance party ID [facility] [id number] Other [id number]
--- OUTSIDE RECORDS SUMMARY | 2024-07-25 11:49 | XMS_ITS | Encounter Summary ---
Author Organization [facility] Address [address] [place] [address] Care Team Providers Care Back Up Worker Name Role Phone Philomena Hunt MD Primary Care Provider [phone] Encounter Details Date Type Department Care Team ([facility] Contact Info) Description 08/22/2019 Abstract [facility] Operating Room [address] [address] Phi Wen MD [address] [place] [address] Social History Tobacco Use Types Packs/Day Years [...] Upcoming Encounters Date Type Department Care Team ([facility] Contact Info) Description 08/11/2024 10:00 AM CDT Office Visit [facility] Oncology and Hematology - [place] [address] [facility] [address] [place] [address] Dax Bianchi MD [address] [facility] [address] [place] [address] documented as of this encounter Visit Diagnoses Not on filedocumented in this encounter Additional Health Concerns Infection Onset Date Last Indicated Resolved Time COVID-19 07/29/2019 07/29/2019 08/28/2019 1:16 AM CDT documented as of this encounter Care Teams Back Up Worker Relationship Specialty Start Date End Date Philomena Hunt MD [address] [place] [address] PCP - General Family Practice 07/20/19 documented as of this encounter
--- OUTSIDE RECORDS SUMMARY | 2024-07-25 11:49 | XMS_ITS | Clinical Summary ---
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
--- OUTSIDE RECORDS SUMMARY | 2024-07-25 11:49 | XMS_ITS | Clinical Summary ---
Author Organization [facility] Address [address] [facility] [address] [place] [address] Phone Care Team Providers Care Audiovisual Tech Name Role Phone Philomena Hunt MD Primary Care Provider [phone] Allergies No known active allergies Medications amLODIPine [...] Encounters Date Type Department Care Team Description 07/20/2024 Abstract [facility] Oncology and Hematology [facility] [address] [place] [address] Dax Bianchi MD 07/14/2024 External Device Data [facility] ABSTRACTION Provider, Abstract 07/13/2024 External Device Data [facility] ABSTRACTION Provider, Abstract 07/12/2024 External Device Data [facility] ABSTRACTION Provider, Abstract 06/07/2024 External Device Data [facility] ABSTRACTION Provider, [...] 11:10 AM CDT Height 160 cm (5' 3) 07/02/2022 1:31 PM CDT Body Mass Index 27.81 07/02/2022 1:31 PM CDT Plan of Treatment Upcoming Encounters Date Type Department Care Team (Late st Contact Info) Description 08/11/2024 10:00 AM CDT Office Visit [facility] Oncology and Hematology - [place] [address] [facility] [address] [place] [address] Dax Bianchi MD [address] [facility] [address] [place] [address] Health Maintenance Due Date [...] 2) 01/13/2022 INFLUENZA VACCINE (#1) 2023 11/26/2018 Preventative Visit- Commercial 02/24/2024 Medical Devices Implanted Type Area Slime Plant Operator Helper Device Identifier Shelf Expiration Date Model / Serial / Lot Seamguard Endogia 60 Prpl [id number] - [id number] Implanted:Qty : 3 on 08/29/2019 by Phi Wen MD at [facility] Biological N/A: Stomach [employer] 10/25/2021 [id number] / / [id number] Seamguard Endogia 60 Blk [id number] - [id number] Implanted:Qty : 2 on 08/29/2019 by Phi Wen MD at [facility] Biological N/A: Stomach [employer] 07/23/2021 [id number] / / [id number] Insurance [facility] [id number] [facility] Internal Plans RX [employer] Express [facility] [id number] Advance Directives For more information, please contact: [phone] * Full Code (Latest Code Status on File) Date Activated Date Inactivated Comments 08/29/2019 10:36 AM 08/31/2019 8:38 PM * Full Code Date Activated Date Inactivated Comments 08/29/2019 6:57 AM 08/29/2019 10:36 AM Care Teams Audiovisual Tech Relationship Specialty Start Date End Date Philomena Hunt MD [address] [place] [address] PCP - General Family Practice 07/20/19
[2024-07-25 14:01] LABS: Alanine Aminotransferase 21 U/L (6-35); Albumin Level 4.2 g/dL (3.5-5.1); Alkaline Phosphatase 52 U/L (38-126); Anion Gap 7 mmol/L (4-12); Aspartate Amino Transferase 34 U/L (14-36); Bilirubin,Total 0.5 mg/dL (0.2-1.3); Blood Urea Nitrogen 16 mg/dL (7-17); Carbon Dioxide 30 mmol/L (22-30); Chloride 102 mmol/L (98-107); Estimated Glomerular Filt Rate 49; Glucose 73 mg/dL (65-110); Sodium 139 mmol/L (137-145)
[2024-07-25 14:14] LABS: Immunoglobulin A 675 mg/dL (70-400); Immunoglobulin G 1314 mg/dL (700-1600)
[2024-07-25 14:16] LABS: Immunoglobulin M < 25 mg/dL (40-230)
[2024-07-27 11:08] LABS: Kappa\\Lambda Light Chains 1.98 (0.26-1.65); Lambda Light Chain 13.4 mg/L (5.7-26.3)
[2024-07-28 02:49] LABS: Protein, Total 7.1 g/dL (6.1-8.1)
[2024-07-29 15:38] LABS: Abnormal Protein Band 1 0.5 g/dL (NONE DETECTED); Albumin 4.2 g/dL (3.8-4.8); Alpha 1 Globulin 0.2 g/dL (0.2-0.3); Alpha 2 Globulin 0.6 g/dL (0.5-0.9); Beta 1 Globulin 0.4 g/dL (0.4-0.6)
== END 2024-07-25 11:11 | disposition home or self-care (01) ==
LOC: ANHLAB 11:14
PROVIDERS: PCP Family Medicine; Visit Provider Internal Medicine Hematology & Oncology
DX: D47.2 Monoclonal gammopathy (principal)
CPT/HCPCS: 36415; 80053; 82784; 83883; 84155; 84165; 85025

== ENCOUNTER 2024-08-29 23:28 | Emergency (ER) | payer OTHER, SELFPAY ==
--- NOTE | ~2024-08-29 | CT_ITS ---
Non-contrast Head CT History: Headache COMPARISON: 323 Technique: Axial non-contrast imaging of the brain was performed. Dose reduction technique was used on this scan by utilizing automated exposure control and iterative reconstruction technique. The dose -length product (DLP) was 605.33 mGy-cm. Findings: There is no evidence of intracranial hemorrhage, mass lesion, or acute infarct. Brain par enchyma appears normal. The ventricles and subarachnoid spaces are normal in size. The calvarium ap pears normal. The visualized paranasal sinuses and mastoid air cells are clear. Impression: No significant abnormality seen. Reviewed, dictated and finalized at location . Impression: No significant abnormality seen.
--- NOTE | ~2024-08-29 | XR_ITS ---
Clinical Indication: Chest pain PA and lateral views of the chest: Comparison: 03/03/2024 Findings: The lungs are clear, without evidence of focal consolidation or pleural effusion. Cardiome diastinal silhouette is within normal limits. Bones and soft tissues are unremarkable. Impression: Normal chest. Reviewed, dictated and finalized at location . Impression: Normal chest.
--- OUTSIDE RECORDS SUMMARY | 2024-08-29 23:30 | XMS_ITS | Encounter Summary ---
Author Organization [facility] Address [address] [place] [address] Care Team Providers Care Net Wpf Developer Name Role Phone Philomena Hunt MD Primary Care Provider [phone] Encounter Details Date Type Department Care Team ([facility] Contact Info) Description 08/22/2019 Abstract [facility] Operating Room [address] [address] Phi Wen MD [address] [place] [address] Social History Tobacco Use Types Packs/Day Years [...] Department Care Team (Late Contact Info) Description 05/12/2025 9:00 AM CDT Office Visit [facility] Oncology and Hematology - [place] [address] [facility] [address] [place] [address] Dax Bianchi MD [address] [facility] [address] [place] [address] documented as of this encounter Visit Diagnoses Not on filedocumented in this encounter Additional Health Concerns Infection Onset Date Last Indicated Resolved Time COVID-19 07/29/2019 07/29/2019 08/28/2019 1:16 AM CDT documented as of this encounter Care Teams Net Wpf Developer Relationship Specialty Start Date End Date Philomena Hunt MD [address] [place] [address] PCP - General Family Practice 07/20/19 documented as of this encounter
--- OUTSIDE RECORDS SUMMARY | 2024-08-29 23:30 | XMS_ITS | Clinical Summary ---
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 Gender Identity Not on file Sexual Orientation [...] to complete this topic Insurance CHOICE PLUS [facility] HMO/PPO Address: [facility] [id number] [place] [address] CHOICE PLUS [facility] HMO/PPO Address: [address] [place] [address] CHOICE PLUS [facility] HMO/PPO Address: [address] [address] [place] [address] Advance Directives For more information, please contact: [phone] * Full Code (Latest Code Status on File) Date Activated Date Inactivated Comments 08/17/2020 3:46 PM 08/18/2020 6:00 PM Care Teams Foreign Language Interpreter Relationship Specialty Start Date End Date Philomena Hunt MD PCP - General Family Medicine 11/03/18
--- OUTSIDE RECORDS SUMMARY | 2024-08-29 23:30 | XMS_ITS | Clinical Summary ---
Author Organization [facility] Address [address] [facility] [address] [address] Phone Care Team Providers Care Patent Clerk Name Role Phone Philomena Hunt MD Primary Care Provider [phone] Allergies No known active allergies Medications amLODIPine [...] Encounters Date Type Department Care Team Description 08/11/2024 10:00 AM CDT Office Visit [facility] Oncology and Hematology - [place] [address] [place] [address] Dax Bianchi MD MGUS (monoclonal gammopathy of unknown significance) (Primary Dx) 08/09/2024 External Device Data STL ABSTRACTION Provider, Abstract 08/01/2024 Orders Only [facility] Oncology and Hematology - [place] [address] [place] [address] Dax Bianchi MD 07/27/2024 Orders Only [facility] Oncology and Hematology - [place] [address] [place] [address] Dax Bianchi MD 07/26/2024 Orders Only [facility] Oncology and Hematology - [place] [address] [place] [address] Dax Bianchi MD 07/20/2024 Abstract [facility] Oncology and Hematology - [place] [address] [place] [address] Dax Bianchi MD 07/14/2024 External Device Data [...] Sign Reading Time Taken Comments Blood Pressure 132/88 08/11/2024 9:52 AM CDT Pulse 84 08/11/2024 9:52 AM CDT Temperature 36.7 C (98 F) 08/11/2024 9:52 AM CDT Respiratory Rate 16 08/11/2024 9:52 AM CDT Oxygen Saturation 98% 08/11/2024 9:52 AM CDT Inhaled Oxygen Concentration - - Weight 72.4 kg (159 lb 9.6 oz) 08/11/2024 9:52 A M CDT Height 160 cm (5' 3) 07/02/2022 1:31 PM CDT Body Mass Index 28.27 07/02/2022 1:31 PM CDT Plan of Treatment Upcoming Encounters Date Type Department Care Team (Late st Contact Info) Description 05/12/2025 9:00 AM CDT Office Visit [facility] Oncology and Hematology - [place] [address] [facility] [address] [place] [address] Dax Bianchi MD [address] [facility] [address] [place] [address] Health Maintenance Due Date Last [...] (1 of 2) 01/13/2022 INFLUENZA VACCINE (#1) 2024 11/26/2018 Medical Devices Implanted Type Area Photographic Process Worker Device Identifier Shelf Expiration Date Model / Serial / Lot Seamguard Endogia 60 Prpl [id number] - [id number] Implanted:Qty : 3 on 08/29/2019 by Phi Wen MD at [facility] [employer] N/A: Stomach [employer] 10/25/2021 [id number] / / [id number] Seamguard Endogia 60 [id number] [id number] - [id number] Implanted:Qty : 2 on 08/29/2019 by Phi Wen MD at [facility] [employer] N/A: Stomach [employer] 07/23/2021 [id number] / / [id number] Procedures Procedure Name Priority Date/Time Associated Diagnosis Comments KAPPA/LAMBDA LIGHT CHAINS Routine 2024 2:43 PM CDT COMPREHENSIVE METABOLIC PANEL Routine 07/25/2024 12:59 PM CDT PROTEIN ELECTROPHORESIS, CSF Routine 07/25/2024 11:15 AM CDT from Last 3 Months Results * KAPPA/LAMBDA, FREE LIGHT CHAINS (07/25/2024 2:43 PM CDT) Blood us Dax Bianchi MD CHEMISTRY ORDERABLES Final Resu lt * COMPREHENSIVE METABOLIC PANEL (07/25/2024 12:59 PM CDT) Blood us Dax Bianchi MD CHEMISTRY ORDERABLES Final Resu lt * PROTEIN ELECTROPHORESIS, CSF (07/25/2024 11:15 AM CDT) Cerebrospinal fluid CEREBROSPINAL FLUID / Unknown us Dax Bianchi MD BODY FLUIDS AND STOOLS Final Re sult from Last 3 Months Insurance RX [employer] PL[employer] (INTERNAL) [facility] RX [employer] Express Member Subscriber Plan / Payer (Ef fective 2020-Present) Name:Mercedez Hanson Relation to Subscriber:Self Name:Mercedez Hanson Payer ID:[id number] ([facility]) Type:PPO Address: [address] OPEN ACCESS HMO Advance Directives For more information, please contact: [phone] * Full Code (Latest Code Status on File) Date Activated Date Inactivated Comments 08/29/2019 10:36 AM 08/31/2019 8:38 PM * Full Code Date Activated Date Inactivated Comments 08/29/2019 6:57 AM 08/29/2019 10:36 AM Care Teams Patent Clerk Relationship Specialty Start Date End Date Philomena Hunt MD [address] [place] [address] PCP - General Family Practice 07/20/19
--- OUTSIDE RECORDS SUMMARY | 2024-08-29 23:30 | XMS_ITS | Clinical Summary ---
Author Organization [facility] Address [address] [place] [address] Care Team Providers Care Composition Mixer Name Role Phone Philomena Hunt MD Primary Care Provider [phone] Allergies No known active allergies Medications magnesium [...] 5:30 AM CDT Height 157.5 cm (5' 2) 06/04/2019 2:11 AM CDT Body Mass Index [...] patient's age to complete this topic Insurance [facility] Advance Directives * Full Code (Latest Code Status on File) Date Activated Date Inactivated Comments 06/04/2019 2:06 AM 06/11/2019 6:55 PM Care Teams Composition Mixer Relationship Specialty Start Date End Date Philomena Hunt MD PCP - General FAMILY PRACTICE 06/03/19
--- OUTSIDE RECORDS SUMMARY | 2024-08-29 23:30 | XMS_ITS | Encounter Summary ---
Author Organization [facility] Address [address] [place] [address] Care Team Providers Care Thermoscrew Operator Name Role Phone Philomena Hunt MD Primary Care Provider Encounter Details Date Type Department Care Team (Late Contact Info) Description 07/12/2019 Abstract [facility] Operating Room [address] [address] Phi Wen MD [address] [place] [address] Social History Tobacco Use Types Packs/Day Years [...] [facility] H[facility] [place] [address] [facility] [address] [place] [address] Dax Bianchi MD [address] [facility] [address] [place] [address] documented as of this encounter Visit Diagnoses Not on filedocumented in this encounter Additional Health Concerns Infection Onset Date Last Indicated Resolved Time COVID-19 07/29/2019 07/29/2019 08/28/2019 1:16 AM CDT documented as of this encounter Care Teams Thermoscrew Operator Relationship Specialty Start Date End Date Philomena Hunt MD [address] [place] [address] PCP - General Family Practice 07/20/19 documented as of this encounter
--- OUTSIDE RECORDS SUMMARY | 2024-08-29 23:30 | XMS_ITS | Referral Summary ---
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
--- OUTSIDE RECORDS SUMMARY | 2024-08-29 23:30 | XMS_ITS | Clinical Summary ---
Author Organization [facility] Address [address] [facility] [place] [address] Care Team Providers Care Combination Technician Name Role Phone Philomena Hunt MD Primary Care Provider [phone] Source Comments [facility],non-owned Affiliates and Associated Physician Practices is amultiple site organization consisting of ambulatory clinics and hospital sitesin [place], [place], [place] and [place]. This disclosure is being madepursuant to the Care Everywhere program and may not contain all information available regarding this patient. 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
[2024-08-29 23:34] VITALS: BP 144/95; PULSE 64; RESP 13; TEMP 36.8; O2SAT 99
--- NOTE | 2024-08-29 23:44 | ECG_ITS ---
Test Date: 2024-08-29 23:56:21 Measurements Intervals [place] Rate: 61 P: 55 OK: 199 QRS: 13 QRSD: 89 T: 42 QT: 419 QTc: 424 Interpretive Statements SINUS RHYTHM WITH SINUS ARRHYTHMIA POSSIBLE LEFT ATRIAL ENLARGEMENT [-0.1mV P-WAVE IN V1/V2] BORDERLINE ECG Compared to ECG 09/04/2023 20:31:29 No significant changes Electronically Signed On 08-31-2024 07:20:00 CDT by Randell Emmanuel M.D.
[2024-08-29 23:50] VITALS: BP 144/95; PULSE 64; RESP 16; TEMP 37; O2SAT 100
--- OUTSIDE RECORDS SUMMARY | 2024-08-29 23:52 | XMS_ITS | Encounter Summary ---
Author Organization [facility] Address [address] [place] [address] Care Team Providers Care Experimental Assembler Name Role Phone Philomena Hunt MD Primary Care Provider [phone] Encounter Details Date Type Department Care Team ([facility] Contact Info) Description 08/22/2019 Abstract [facility] Operating Room [address] [address] Phi Wen MD [address] [place] [address] Social History Tobacco Use Types Packs/Day Years [...] Description 05/12/2025 9:00 AM CDT Office Visit [facility] Oncology and Hematology - [place] [address] [facility] [address] [place] [address] Dax Bianchi MD [address] [facility] [address] [place] [address] documented as of this encounter Visit Diagnoses Not on filedocumented in this encounter Additional Health Concerns Infection Onset Date Last Indicated Resolved Time COVID-19 07/29/2019 07/29/2019 08/28/2019 1:16 AM CDT documented as of this encounter Care Teams Experimental Assembler Relationship Specialty Start Date End Date Philomena Hunt MD [address] [place] [address] PCP - General Family Practice 07/20/19 documented as of this encounter
--- OUTSIDE RECORDS SUMMARY | 2024-08-29 23:52 | XMS_ITS | Clinical Summary ---
Author Organization [facility] Address [address] [place] [address] Care Team Providers Care Qualitative Field Project Manager Name Role Phone Philomena Hunt MD Primary Care Provider [phone] Allergies No known active allergies Medications magnesium [...] patient's age to complete this topic Insurance [facility] Advance Directives * Full Code (Latest Code Status on File) Date Activated Date Inactivated Comments 06/04/2019 2:06 AM 06/11/2019 6:55 PM Care Teams Qualitative Field Project Manager Relationship Specialty Start Date End Date Philomena Hunt MD PCP - General FAMILY PRACTICE 06/03/19
--- OUTSIDE RECORDS SUMMARY | 2024-08-29 23:52 | XMS_ITS | Referral Summary ---
Author Organization [facility] Address [address] [place] [address] Care Team Providers Care Sr. 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 Gender Identity Not on file Sexual Orientation [...] Treatment Not on file Insurance CHOICE PLUS Member Subscriber Plan / Payer ( fective 2018-Present) Name:Mercedez Weiss Relation to Subscriber:Self Name:Mercedez Weiss Payer ID:[id number] ([facility]) Type:[facility] HMO/PPO Address: [place] [address] CHOICE PLUS Member Subscriber Plan / Payer ( fective 2018-Present) Name:Mercedez Weiss Relation to Subscriber:Self Name:Mercedez Weiss Payer ID:[id number] ([facility]) Type:[facility] HMO/PPO Address: [id number] [place] [id number] CHOICE PLUS Advance Directives For more information, please contact: [phone] * Full Code (Latest Code Status on File) Date Activated Date Inactivated Comments 08/17/2020 3:46 PM 08/18/2020 6:00 PM Care Teams Sr. Pricing Analyst Relationship Specialty Start Date End Date Philomena Hunt MD PCP - General Family Medicine 11/03/18
--- OUTSIDE RECORDS SUMMARY | 2024-08-29 23:52 | XMS_ITS | Encounter Summary ---
Author Organization [facility] Address [address] [place] [address] Care Team Providers Care Primary Products Inspectors Name Role Phone Philomena Hunt MD Primary Care Provider [phone] Encounter Details Date Type Department Care Team (Late Contact Info) Description 07/12/2019 Abstract [facility] Operating Room [address] [address] Phi Wen MD [address] [place] [address] Social History Tobacco Use Types Packs/Day Years [...] Description 05/12/2025 9:00 AM CDT Office Visit [facility] Oncology and Hematology - [place] [address] [facility] [address] [place] [address] Dax Bianchi MD [address] [facility] [address] [place] [address] documented as of this encounter Visit Diagnoses Not on filedocumented in this encounter Additional Health Concerns Infection Onset Date Last Indicated Resolved Time COVID-19 07/29/2019 07/29/2019 08/28/2019 1:16 AM CDT documented as of this encounter Care Teams Primary Products Inspectors Relationship Specialty Start Date End Date Philomena Hunt MD [address] [place] [address] PCP - General Family Practice 07/20/19 documented as of this encounter
--- OUTSIDE RECORDS SUMMARY | 2024-08-29 23:53 | XMS_ITS | Clinical Summary ---
Author Organization [facility] Address [address] [facility] [place] [place] [address] Care Team Providers Care Children'S Court Magistrate Name Role Phone Philomena Hunt MD Primary Care Provider [phone] Source Comments [facility],non-owned Affiliates and Associated Physician Practices is amultiple site organization consisting of ambulatory clinics and hospital sitesin [place], [place]. This disclosure is being madepursuant to the Care Everywhere program and may not contain all information available regarding this patient. 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
--- OUTSIDE RECORDS SUMMARY | 2024-08-29 23:53 | XMS_ITS | Clinical Summary ---
Author Organization [facility] Address [address] [facility] [address] [address] Phone Care Team Providers Care Retail Business Manager Name Role Phone Philomena Hunt MD Primary Care Provider [phone] Allergies No known active allergies Medications amLODIPine [...] Description 08/11/2024 10:00 AM CDT Office Visit [facility] Oncology and Hematology - [place] [address] [place] [address] Dax Bianchi MD MGUS (monoclonal gammopathy of unknown significance) (Primary Dx) 08/09/2024 External Device Data STL ABSTRACTION Provider, Abstract 08/01/2024 Orders Only [facility] Oncology and Hematology - [place] [address] [place] [address] Dax Bianchi MD 07/27/2024 Orders Only [facility] Oncology and Hematology - [place] [address] [place] [address] Dax Bianchi MD 07/26/2024 Orders Only [facility] Oncology and Hematology - [place] [address] [place] [address] Dax Bianchi MD 07/20/2024 Abstract [facility] Oncology and Hematology - [place] [address] [place] [address] Dax Bianchi MD 07/14/2024 External Device Data [...] Description 05/12/2025 9:00 AM CDT Office Visit [facility] Oncology and Hematology - [place] [address] [facility] [address] [place] [address] Dax Bianchi MD [address] [facility] [address] [place] [address] Health Maintenance Due Date Last [...] 2024 11/26/2018 Medical Devices Implanted Type Area Kit Planner Device Identifier Shelf Expiration Date Model / Serial / Lot Seamguard Endogia 60 Prpl [id number] - [id number] Implanted:Qty : 3 on 08/29/2019 by Phi Wen MD at [facility] [employer] N/A: Stomach [employer] 10/25/2021 [id number] / / [id number] Seamguard Endogia 60 Blk [id number] - [id number] Implanted:Qty : 2 on 08/29/2019 by Phi Wen MD at [facility] [employer] N/A: Stomach [employer] 07/23/2021 [id number] / / [id number] Procedures Procedure Name Priority Date/Time Associated Diagnosis [...] Relation to Subscriber:Self Name:Mercedez Hanson Payer ID:[id number] ([facility]) Type:PPO Address: [address] OPEN ACCESS HMO Advance Directives For more information, please contact: [phone] * Full Code (Latest Code Status on File) Date Activated Date Inactivated Comments 08/29/2019 10:36 AM 08/31/2019 8:38 PM * Full Code Date Activated Date Inactivated Comments 08/29/2019 6:57 AM 08/29/2019 10:36 AM Care Teams Retail Business Manager Relationship Specialty Start Date End Date Philomena Hunt MD [address] [place] [address] PCP - General Family Practice 07/20/19
--- OUTSIDE RECORDS SUMMARY | 2024-08-29 23:53 | XMS_ITS | Clinical Summary ---
Author Organization 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
[2024-08-30] VITALS (8 sets, daily range): BP systolic 122–150; BP diastolic 83–102; PULSE 58–74; RESP 12–17; TEMP 36.4; O2SAT 100
[2024-08-30] LABS: Hematocrit 36.7 % (37.0-47.0); Hemoglobin 11.9 g/dL (12.0-15.0); Immature Granulocyte Percent A 0.2 % (0-0.5); Lymphocytes Absolute Auto 2.31 K/mm3 (0.9-3.2); Mean Corpuscular HGB Conc 32.4 g/dl (32-36); Mean Corpuscular Hemoglobin 29.1 pg (26-34); Mean Corpuscular Volume 89.7 fl (80-100); Nucleated Red Blood Cells Absolute Auto 0.000 K/mm3 (0.0-0.012); Nucleated Red Blood Cells Perc 0.0 % (0.0-0.2); Platelet Count Result 166 k/mm3 (150-375); Red Blood Count 4.09 M/mm3 (4.2-5.4); White Blood Count 5.0 K/mm3 (4.5-10.0)
[2024-08-30 00:13] LABS: INR 1.0; Prothrombin Time 13.3 Seconds (11.1-14.7)
[2024-08-30 00:14] LABS: Partial Thromboplastin Time 28.0 Seconds (22.3-36.8)
[2024-08-30 00:20] LABS: Alanine Aminotransferase 24 U/L (6-35); Albumin Level 4.0 g/dL (3.5-5.1); Alkaline Phosphatase 49 U/L (38-126); Anion Gap 9 mmol/L (4-12); Aspartate Amino Transferase 32 U/L (14-36); Bilirubin,Total 0.3 mg/dL (0.2-1.3); Blood Urea Nitrogen 16 mg/dL (7-17); Calcium 8.5 mg/dL (8.4-10.2); Carbon Dioxide 23 mmol/L (22-30); Chloride 106 mmol/L (98-107); Estimated CRCL calculation 46 ml/min; Estimated Glomerular Filt Rate 46; Glucose 108 mg/dL (65-110); Lipase 192 U/L (23-300); Potassium 3.2 mmol/L (3.4-5.0); Sodium 138 mmol/L (137-145); Total Protein 7.4 g/dL (6.3-8.2)
[2024-08-30 00:32] LABS: NT Pro B Type Natriuretic Pept 96 pg/mL (19.9-100); Troponin I < 0.012 ng/mL (0.000-0.034)
[2024-08-30] MEDS: ACETAMINOPHEN 500 MG TABLET 1000 MG PO (01:35)
[2024-08-30] MEDS: POTASSIUM CHLORIDE 20 MEQ ER TABLET 40 MEQ PO (01:35)
--- NOTE | 2024-08-30 01:38 | ED_ITS ---
HPI - Headache General Chief Complaint: Headache <LIZETH Cortez Last Filed: 08/30/24 03:11> Stated Complaint: headache and bp issues <LIZETH Cortez Last Filed: 08/30/24 03:11> Time Seen by Provider: 08/29/24 23:36 <LIZETH Cortez Last Filed: 08/30/24 03:11> Source: patient <LIZETH Cortez Last Filed: 08/30/24 03:11> Mode of arrival: ambulatory <LIZETH Cortez Filed: 08/30/24 03:11> Limitations: no limitations <LIZETH Cortez Last Filed: 08/30/24 03:11> History of Present Illness HPI Narrative: Patient is a 54-year-old female who presents the ED with report of headache and chest tightness. Patient reports having a fairly persistent headache diffusely throughout her head for the past 1.5 weeks. States she has noticed her blood pressure being elevated with this, as high as 162/120. She does have Hx of HTN and is on multiple medications for this, reports compliance with medications. States she has also been taking ibuprofen for the headaches w/o improvement. Does have hx of migraines but states this feels different. Reports mild lightheadedness. Denies focal numbness or weakness. Also reports mild chest tightness today as well as slight shortness of breath with exertion. Denies recent cough or cold symptoms, pain or swelling in her legs, syncope. < LIZETH Cortez Last Filed: 08/30/24 03:11> Related Data Home Medications: Home Medications ?Medication ?Instructions ?Recorded ?Confirmed ?Last Taken ?Type semaglutide (weight loss) 1 mg/0.5 2.6 mg subcut WEEKLY 04/13/23 07/20/24 Unknown History mL subcutaneous pen injector (Wegovy) pantoprazole 40 mg granules 40 mg PO DAILY 06/13/24 07/20/24 Unknown History delayed-release for susp in packet <LIZETH Cortez Last Filed: 08/30/24 03:11> Allergies/Adverse Reactions: Allergies Allergy/AdvReac Type Severity Reaction Status Date / Time No Known Allergies Allergy Verified 08/29/24 23:52 <Michelle Chaidez PA-C - Last Filed: 08/30/24 03:11> Review of Systems 2 Review of Systems: All systems reviewed & are unremarkable except as noted in HPI. <Michelle Chaidez PA-C - Last Filed: 08/30/24 03:11> All systems reviewed & are unremarkable except as noted in HPI and below < Michelle Chaidez PA-C - Last Filed: 08/30/24 03:11> [facility] Past Medical History Medical History: Medical History Abdominal pain IBS (irritable bowel syndrome) Colon cancer screening Dyspnea Acute sinusitis Acute bronchitis Cough Obstructive sleep apnea Suspected COVID-19 virus infection Migraine Acute sinusitis Encounter for monitoring diuretic therapy Essential hypertension (~2009) Gastroesophageal reflux disease without esophagitis Other allergic rhinitis Other hyperlipidemia Prediabetes Vitamin D deficiency HTN (hypertension) <Michelle Chaidez PA-C - Last Filed: 08/30/24 03:11> Surgical History Surgical History: Surgical History History of bilateral breast reduction surgery H/O bariatric surgery H/O section <Michelle Chaidez PA-C - Last Filed: 08/30/24 03:11> Family History Family History: Family History Mother Hypertension Father Family history of malignant neoplasm Patient's father is Stomach cancer Sibling Depression Other Asthma Grandparent Diabetes mellitus Other Family history of lung cancer <Michelle Chaidez PA-C - Last Filed: 08/30/24 03:11> Social History Social History: Social History Smoking status: Never smoker Second hand tobacco smoke exposure: No Alcohol intake: never Substance use: never Substance use type: does not use Do You Feel Safe in your Home?: Yes Lack of Transportation: No Lack of Food: Sometimes True Current Housing: I Have Housing Concerned About Future Housing: No Difficulty Paying Gas/Electric Bills: YES Difficulty Paying for Meds: No Currently Unemployed: No Education: High School Diploma/GED Difficulty w/ Childcare or Family Care: No Living arrangements: with family Occupation/Education: occupation Gender identity (if verbalized by the patient): Female Sexual Orientation (if Verbalized by the Patient): Straight or Heterosexual Spiritual care concerns: No Agree to blood products: Yes <Michelle Chaidez PA-C - Last Filed: 08/30/24 03:11> Exam 2 Narrative: GENERAL: Well appearing, well-nourished, non-toxic, in no acute distress. HEAD: Normocephalic, atraumatic. NECK: Normal ROM, no meningeal signs. RESPIRATORY: Airway patent, respirations nonlabored. Clear to auscultation bilaterally, no rales, rhonchi, wheezing. No focal lung sounds. CARDIOVASCULAR: Regular rate and rhythm without murmurs, rubs, or gallops. ABDOMINAL: Soft, nontender, nondistended. Normoactive BS. MUSCULOSKELETAL: Moves all extremities. No gross deformities. No peripheral edema. No calf tenderness. SKIN: Warm, dry, normal color. NEURO: A&O X3. Speech clear. Cranial nerves II-XII grossly intact. Steady gait. No ataxic movements. No focal deficits. PSYCHIATRIC: Appropriate mood and affect. Normal interaction. <Michelle Chaidez PA-C - Last Filed: 08/30/24 03:11> Course COURT SECURITY OFFICER/PA Physician Supervision For this patient encounter, I reviewed the COURT SECURITY OFFICER or PA documentation, treatment plan, and medical decision making and had adde-in-jltl time with this patient. I performed all aspects of the MDM as documented. <Shan Wong MD - Last Filed: 08/30/24 03:14> Vital Signs Vital signs: Vital Signs Temperature 98.3 F 08/29/24 23:34 Pulse Rate 64 08/29/24 23:34 Respiratory Rate 13 08/29/24 23:34 Blood Pressure 144/95 H 08/29/24 23:34 Pulse Oximetry 99 08/29/24 23:34 Temperature 98.6 F 08/29/24 23:50 Pulse Rate 64 08/30/24 02:30 Respiratory Rate 12 08/30/24 02:30 Blood Pressure 150/92 H 08/30/24 02:30 Pulse Oximetry 100 08/30/24 02:30 <Michelle Chaidez PA-C - Last Filed: 08/30/24 03:11> Vital Signs Temperature 98.3 F 08/29/24 23:34 Pulse Rate 64 08/29/24 23:34 Respiratory Rate 13 08/29/24 23:34 Blood Pressure 144/95 H 08/29/24 23:34 Pulse Oximetry 99 08/29/24 23:34 Temperature 98.6 F 08/29/24 23:50 Pulse Rate 64 08/30/24 02:30 Respiratory Rate 12 08/30/24 02:30 Blood Pressure 150/92 H 08/30/24 02:30 Pulse Oximetry 100 08/30/24 02:30 <Shan Wong MD - Last Filed: 08/30/24 03:14> MDM - Headache MDM Narrative Medical decision making narrative: Patient presented to ED with 1.5 week history persistent headaches, episode of chest tightness and shortness breath with exertion today. Vital signs stable upon arrival. Patient is in no acute distress. Neurologically intact. Chest x-ray interpreted by myself without acute findings. EKG without concerning ischemic changes. Troponin undetectable. BNP within normal range. Patient does not appear fluid overloaded. D-dimer also within normal range. HEART score =2 Laboratory studies without leukocytosis or significant anemia. Potassium was slightly low at 3.2. Replaced orally. Creatinine slightly elevated 1.22, though this appears consistent with previous records. CT brain negative. 3 Hr trop Patient given migraine cocktail in the ED. On reeval, feeling improved. Feel headache is related to benign cephalgia. Patient safe for discharge home at this time. Discussed the management, recommended close follow-up with PCP for further evaluation. Given strict return precautions. She agrees with plan. Discharged in stable condition. <Michelle Chaidez PA-C - Last Filed: 08/30/24 03:11> Patient presented to ED with 1.5 week history persistent headaches, episode of chest tightness and shortness breath with exertion today. Vital signs stable upon arrival. Patient is in no acute distress. Neurologically intact. Chest x-ray interpreted by myself without acute findings. EKG without concerning ischemic changes. Troponin undetectable. BNP within normal range. Patient does not appear fluid overloaded. D-dimer also within normal range. HEART score =2 Laboratory studies without leukocytosis or significant anemia. Potassium was slightly low at 3.2. Replaced orally. Creatinine slightly elevated 1.22, though this appears consistent with previous records. CT brain negative. 3 Hr trop negative. Patient given migraine cocktail in the ED. On reeval, feeling improved. Feel headache is related to benign cephalgia. Patient safe for discharge home at this time. Discussed the management, recommended close follow-up with PCP for further evaluation. Given strict return precautions. She agrees with plan. Discharged in stable condition. <Shan Wong MD - Last Filed: 08/30/24 03:14> Medical Records Attestation: I reviewed the patient's medical records. <Michelle Chaidez PA-C - Last Filed: 08/30/24 03:11> Lab Data Attestation: I reviewed the patient's lab results. <Michelle Chaidez PA-C - Last Filed: 08/30/24 03:11> Result diagrams: 08/29/24 23:53 08/29/24 23:53 <Michelle Chaidez PA-C - Last Filed: 08/30/24 03:11> Labs: Lab Results 08/29/24 08/30/24 Range/Units 23:53 02:46 WBC 5.0 (4.5-10.0) K/mm3 RBC 4.09 L (4.2-5.4) M/mm3 Hgb 11.9 L (12.0-15.0) g/dL Hct 36.7 L (37.0-47.0) % MCV 89.7 (80-100) fl MCH 29.1 (26-34) pg MCHC 32.4 (32-36) g/dl RDW 12.0 (11.5-14.5) % Plt Count 166 (150-375) k/mm3 MPV 11.0 H (7.4-10.4) fl Immature Gran % (Auto) 0.2 (0-0.5) % Neut % (Auto) 41.5 L (45.5-73.1) % Lymph % (Auto) 45.9 H (18.3-44.2) % Noble % (Auto) 8.0 (2.6-8.5) % Eos % (Auto) 4.0 (0-4.4) % Baso % (Auto) 0.4 (0.2-1.2) % Lymph # (Auto) 2.31 (0.9-3.2) K/mm3 Noble # (Auto) 0.4 (0.1-0.6) K/mm3 Eos # (Auto) 0.2 (0-0.3) K/mm3 Baso # (Auto) 0.0 (0.0-0.1) K/mm3 Abs Immat Gran (auto) 0.01 (0.00-0.031) K/mm3 Absolute Neuts (auto) 2.1 (1.3-6.7) K/mm3 Absolute Nucleated RBC 0.000 (0.0-0.012) K/mm3 Nucleated RBC % 0.0 (0.0-0.2) % PT 13.3 (11.1-14.7) Seconds INR 1.0 APTT 28.0 (22.3-36.8) Seconds D-Dimer < 0.27 (<0.48) ug/mL Sodium 138 (137-145) mmol/L Potassium 3.2 L (3.4-5.0) mmol/L Chloride 106 (98-107) mmol/L Carbon Dioxide 23 (22-30) mmol/L Anion Gap 9 (4-12) mmol/L BUN 16 (7-17) mg/dL Creatinine 1.22 H (0.7-1.0) mg/dL Estim Creat Clear Calc 46 ml/min Estimated GFR 46 L (59 - ) Glucose 108 (65-110) mg/dL Calcium 8.5 (8.4-10.2) mg/dL Magnesium 2.0 (1.6-2.3) mg/dL Total Bilirubin 0.3 (0.2-1.3) mg/dL AST 32 (14-36) U/L ALT 24 (6-35) U/L Alkaline Phosphatase 49 (38-126) U/L Troponin I < 0.012 < 0.012 (0.000-0.034) ng/mL NT-Pro-B Natriuret Pep 96 (19.9-100) pg/mL Total Protein 7.4 (6.3-8.2) g/dL Albumin 4.0 (3.5-5.1) g/dL Lipase 192 (23-300) U/L <Michelle Chaidez PA-C - Last Filed: 08/30/24 03:11> Lab Results 08/29/24 08/30/24 Range/Units 23:53 02:46 WBC 5.0 (4.5-10.0) K/mm3 RBC 4.09 L (4.2-5.4) M/mm3 Hgb 11.9 L (12.0-15.0) g/dL Hct 36.7 L (37.0-47.0) % MCV 89.7 (80-100) fl MCH 29.1 (26-34) pg MCHC 32.4 (32-36) g/dl RDW 12.0 (11.5-14.5) % Plt Count 166 (150-375) k/mm3 MPV 11.0 H (7.4-10.4) fl Immature Gran % (Auto) 0.2 (0-0.5) % Neut % (Auto) 41.5 L (45.5-73.1) % Lymph % (Auto) 45.9 H (18.3-44.2) % Noble % (Auto) 8.0 (2.6-8.5) % Eos % (Auto) 4.0 (0-4.4) % Baso % (Auto) 0.4 (0.2-1.2) % Lymph # (Auto) 2.31 (0.9-3.2) K/mm3 Noble # (Auto) 0.4 (0.1-0.6) K/mm3 Eos # (Auto) 0.2 (0-0.3) K/mm3 Baso # (Auto) 0.0 (0.0-0.1) K/mm3 Abs Immat Gran (auto) 0.01 (0.00-0.031) K/mm3 Absolute Neuts (auto) 2.1 (1.3-6.7) K/mm3 Absolute Nucleated RBC 0.000 (0.0-0.012) K/mm3 Nucleated RBC % 0.0 (0.0-0.2) % PT 13.3 (11.1-14.7) Seconds INR 1.0 APTT 28.0 (22.3-36.8) Seconds D-Dimer < 0.27 (<0.48) ug/mL Sodium 138 (137-145) mmol/L Potassium 3.2 L (3.4-5.0) mmol/L Chloride 106 (98-107) mmol/L Carbon Dioxide 23 (22-30) mmol/L Anion Gap 9 (4-12) mmol/L BUN 16 (7-17) mg/dL Creatinine 1.22 H (0.7-1.0) mg/dL Estim Creat Clear Calc 46 ml/min Estimated GFR 46 L (59 - ) Glucose 108 (65-110) mg/dL Calcium 8.5 (8.4-10.2) mg/dL Magnesium 2.0 (1.6-2.3) mg/dL Total Bilirubin 0.3 (0.2-1.3) mg/dL AST 32 (14-36) U/L ALT 24 (6-35) U/L Alkaline Phosphatase 49 (38-126) U/L Troponin I < 0.012 < 0.012 (0.000-0.034) ng/mL NT-Pro-B Natriuret Pep 96 (19.9-100) pg/mL Total Protein 7.4 (6.3-8.2) g/dL Albumin 4.0 (3.5-5.1) g/dL Lipase 192 (23-300) U/L <Shan Wong MD - Last Filed: 08/30/24 03:14> Imaging Data Attestation: I personally reviewed and interpreted this imaging study as follows: < Michelle Chaidez PA-C - Last Filed: 08/30/24 03:11> My impression: CXR: Clear <Michelle Chaidez PA-C - Last Filed: 08/30/24 03:11> Radiologist's impression: STAT RAD CT brain: No acute intracranial hemorrhage. No midline shift or mass effect. The territory of jernigan-white matter differentiation is maintained throughout. The ventricles and sulci are commensurate with age. <LIZETH Cortez Last Filed: 08/30/24 03:11> ECG Data EKG #1: Attestation: I personally reviewed and interpreted this ECG as follows: <LIZETH Cortez Last Filed: 08/30/24 03:11> ECG completion date: 08/29/24 <LIZETH Cortez Last Filed: 08/30/24 03:11> ECG completion time: 23:56 <LIZETH Cortez Last Filed: 08/30/24 03:11> EKG Interpretation: normal rate (61), sinus rhythm (With sinus arrhythmia) and no ST changes <LIZETH Cortez Last Filed: 08/30/24 03:11> Discharge Plan Discharge Clinical Impression: Atypical chest pain Migraine Qualifiers: Migraine type: unspecified Status migrainosus presence: without status migrainosus Intractability: not intractable Qualified Code(s): G43.909 - Migraine, unspecified, not intractable, without status migrainosus <LIZETH Cortez Last Filed: 08/30/24 03:11> Patient Disposition: Home <LIZETH Cortez Last Filed: 08/30/24 03:11> Condition: Stable <LIZETH Cortez Last Filed: 08/30/24 03:11> Instructions: Antibiotic Form, Migraine Headache (ED), Acute Headache (ED) <LIZETH Cortez Last Filed: 08/30/24 03:11> Additional Instructions: Continue Tylenol and ibuprofen as needed for pain. Get plenty of rest. Stay well hydrated. Recommend low light/ low stimulus environment, limiting screen time. Follow-up with your primary care doctor for further evaluation of headaches and chest pain. Return to the ED if you experience worsening or severe pain, worsening or severe difficulty breathing, severe dizziness, passing out, vision changes, unable to keep down food or drink, or any other symptoms of concern. <LIZETH Cortez Last Filed: 08/30/24 03:11> Patient Language: [place] Islander <Michelle Chaidez PA-C - Last Filed: 08/30/24 03:11> Prescriptions: No Action sumatriptan succinate 50 mg tablet See Rx Instructions PO .COMPLEX Qty: 7 0RF Rx Instructions: take 1 tab at onset of headache; if no relief may repeat 1 tab after at least 2 hrs; max = 4 tabs/24 hr PO zolpidem 5 mg tablet 5 mg PO QHS PRN (Reason: insomnia) Qty: 30 1RF Wegovy 1 mg/0.5 mL pen injector 2.6 mg subcut WEEKLY Rx Instructions: administer weeks 9 through 12 of therapy montelukast 10 mg tablet 10 mg PO DAILY Qty: 90 1RF Rx Instructions: at hs bupropion HCl 150 mg tablet extended release 24 hr 150 mg PO QAM Qty: 30 2RF buspirone 7.5 mg tablet 7.5 mg PO BID PRN (Reason: stress) Qty: 40 0RF pantoprazole [address] for susp in packet 40 mg PO DAILY labetalol 100 mg tablet 200 mg PO Q12H Qty: 60 3RF lisinopril 40 mg tablet 40 mg PO DAILY Qty: 90 2RF ergocalciferol (vitamin D2) 1,250 mcg (50,000 unit) capsule 1,250 mcg PO 2XW Qty: 10 3RF amlodipine 10 mg tablet 10 mg PO DAILY Qty: 90 2RF fluticasone propionate 50 mcg/actuation spray,suspension See Rx Instructions .ROUTE .COMPLEX Qty: 48 3RF Dose Instruction: USE 2 SPRAYS IN EACH NOSTRIL DAILY Rx Instructions: USE 2 SPRAYS IN EACH NOSTRIL DAILY hyoscyamine sulfate 0.125 mg tablet 0.125 mg PO QID PRN (Reason: abdominal pain) 30 Days Qty: 120 5RF <Michelle Chaidez PA-C - Last Filed: 08/30/24 03:11> Follow-up/Referrals: Philomena Hunt MD [Primary Care Provider] - <Michelle Chadiez PA-C - Last Filed: 08/30/24 03:11> Time of Disposition: 03:11 <Michelle Chaidez PA-C - Last Filed: 08/30/24 03:11> 03:11 <Shan Wong MD - Last Filed: 08/30/24 03:14> Quality HEART score for chest pain patients History: slightly suspicious <Michelle Chaidez PA-C - Last Filed: 08/30/24 03:11> ECG: normal <Michelle Chaidez PA-C - Last Filed: 08/30/24 03:11> Age: > 45 and < 65 years <Michelle Chaidez PA-C - Last Filed: 08/30/24 03:11> Risk factors: 1 or 2 risk factors <Michelle Chaidez PA-C - Last Filed: 08/30/24 03:11> Troponin: < or = to 1x normal limit <Michelle Chaidez PA-C - Last Filed: 08/30/24 03:11> Heart score: 2 <Michelle Chaidez PA-C - Last Filed: 08/30/24 03:11> 2 <Shan Wong MD - Last Filed: 08/30/24 03:14>
[2024-08-30] MEDS: SODIUM CHLORIDE 0.9% IV 1,000 ML 999 ML IV CONT (01:39)
[2024-08-30] MEDS: METOCLOPRAMIDE HCL INJ 10 MG/2 ML VIAL IV PUSH (01:39)
[2024-08-30 02:01] LABS: Magnesium 2.0 mg/dL (1.6-2.3)
--- NOTE | 2024-08-30 02:40 | ECG_ITS ---
Test Date: 2024-08-30 02:43:19 Measurements Intervals Mellen Rate: 51 P: 56 CO: 193 QRS: 17 QRSD: 87 T: 29 QT: 462 QTc: 428 Interpretive Statements SINUS BRADYCARDIA POSSIBLE LEFT ATRIAL ENLARGEMENT [-0.1mV P-WAVE IN V1/V2] BORDERLINE ECG Compared to ECG 08/29/2024 23:56:21 NO DIFFERENCE Electronically Signed On 08-31-2024 07:21:18 CDT by Randell Emmanuel M.D.
[2024-08-30] MEDS: KETOROLAC 30 MG/ML VIAL (*BKC) IV PUSH (02:53)
[2024-08-30] MEDS: MAGNESIUM SULF 2 GM/WATER 50ML 2 GM/50 ML BAG IVPB (02:53)
[2024-08-30 03:12] LABS: Troponin I < 0.012 ng/mL (0.000-0.034)
== END 2024-08-30 03:58 | disposition home or self-care (01) ==
PROVIDERS: Physician Assistant; Emergency Provider Emergency Medicine; PCP Family Medicine
DX: G43.909 Migraine, unspecified, not intractable, without status migrainosus (principal); R07.89 Other chest pain; I10 Essential (primary) hypertension; E78.49 Other hyperlipidemia; E55.9 Vitamin D deficiency, unspecified; K58.9 Irritable bowel syndrome, unspecified; K21.9 Gastro-esophageal reflux disease without esophagitis; G47.33 Obstructive sleep apnea (adult) (pediatric); R73.03 Prediabetes; Z98.84 Bariatric surgery status; Z79.85 Long-term (current) use of injectable non-insulin antidiabetic drugs; Z79.899 Other long term (current) drug therapy
CPT/HCPCS: 36415; 70450; 71046; 80053; 83690; 83735; 83880; 84484; 85025; 85380; 85610; 85730; 93005; 96361; 96365; 96375; 99284; A9270; J1200; J1885; J2765; J3475; J7030

== ENCOUNTER 2024-10-13 08:51 | Outpatient (CLI) | payer OTHER, SELFPAY ==
--- NOTE | ~2024-10-13 | CT_ITS ---
EXAMINATION: CT sinus wo con DATE: 10/13/2024 09:06 INDICATION: Chronic sinusitis TECHNIQUE: Computed tomography (CT) of the facial bones and maxillofacial region was performed without intravenous contrast. The dose-length product was 290.62 mGy-cm. COMPARISON: None. FINDINGS: Dental hardware with surrounding artifact which slightly limits evaluation. Mastoid air cells are clear. Paranasal sinuses are clear. No fracture. Nasal septum is midline. Ostiomeatal complexes are patent. Grossly, visualized intracranial contents are unremarkable. Globes are unremarkable. Or bits are unremarkable. IMPRESSION: 1. Paranasal sinuses and mastoid air cells are clear. Reviewed, dictated and finalized at location Q.
== END 2024-10-13 08:52 | disposition home or self-care (01) ==
LOC: MICIMG 08:51
PROVIDERS: PCP Family Medicine; Visit Provider Otolaryngology
DX: J32.9 Chronic sinusitis, unspecified (principal); J34.89 Other specified disorders of nose and nasal sinuses; J34.3 Hypertrophy of nasal turbinates
CPT/HCPCS: 70486

== ENCOUNTER 2024-11-10 00:47 | Day surgery (SDC) | payer OTHER, SELFPAY ==
[2024-10-31 09:34] VITALS: BMI 28.3
[2024-11-10 12:06] VITALS: BP 130/86; PULSE 65; RESP 20; TEMP 36.6; O2SAT 97
--- NOTE | 2024-11-10 12:07 | WPDANESEPPF ---
Anes - Initial Pre Proc Eval Procedure: Operation Date: 11/10/24 13:00 Proposed Procedures p Esophagogastroduodenoscopy EGD - Cl Miranda MD Date/Time: 11/10/24 12:07 Surgeon: Cl Miranda MD Pre Op Diagnosis: GERD Patient Data Age: 54 Gender: F Height: 1.6 m Weight: 72.6 kg Allergies Allergy/AdvReac Type Severity Reaction Status Date / Time No Known Allergies Allergy Verified 11/10/24 11:57 Home Medications ?Medication ?Instructions ?Recorded ?Confirmed ?Type semaglutide (weight loss) 1 mg/0.5 2.6 mg subcut WEEKLY 04/13/23 11/10/24 History mL subcutaneous pen injector (Wegovy) montelukast 10 mg tablet 10 mg PO DAILY #90 tabs 08/17/23 11/10/24 Rx labetalol 100 mg tablet 200 mg (2 x 100 mg) PO Q12H #60 09/09/23 11/10/24 Rx tabs amlodipine 10 mg tablet 10 mg PO DAILY #90 tabs 03/08/24 11/10/24 Rx ergocalciferol (vitamin D2) 1,250 1,250 mcg PO 2XW #10 caps 03/08/24 11/10/24 Rx mcg (50,000 unit) capsule lisinopril 40 mg tablet 40 mg PO DAILY #90 tabs 03/08/24 11/10/24 Rx buspirone 7.5 mg tablet 7.5 mg PO BID PRN stress #40 tabs 04/21/24 11/07/24 Rx fluticasone propionate 50 See Rx Instructions .Route 05/18/24 11/10/24 Rx mcg/actuation nasal .COMPLEX #48 grams spray,suspension pantoprazole 40 mg granules 40 mg PO DAILY 06/13/24 11/10/24 History delayed-release for susp in packet hyoscyamine sulfate 0.125 mg tablet 0.125 mg PO QID PRN abdominal pain 07/13/24 11/07/24 Rx 1 month #120 tabs zolpidem 5 mg tablet 5 mg PO QHS PRN insomnia #30 tabs 07/20/24 11/07/24 Rx chlorthalidone 12.5 mg tablet 12.5 mg PO DAILY #30 tabs 09/02/24 11/10/24 Rx potassium chloride 10 mEq 10 meq PO DAILY #30 caps 09/02/24 11/10/24 Rx capsule,extended release sertraline 50 mg tablet 50 mg PO DAILY #30 tabs 09/02/24 11/10/24 Rx bupropion HCl 150 mg 24 hr tablet, 150 mg PO QAM #30 tabs 09/19/24 11/10/24 Rx extended release azelastine 137 mcg (0.1 %) nasal 1 - 2 spray intranasal Q12H #30 mL 09/29/24 11/10/24 Rx spray topiramate 25 mg tablet (Topamax) 25 mg PO DAILY #30 tabs 10/10/24 11/10/24 Rx doxazosin 1 mg tablet (Cardura) 1 mg PO QHS #30 tabs 11/07/24 11/10/24 Rx rimegepant 75 mg disintegrating 75 mg PO ONCE PRN migraine 11/07/24 11/10/24 Rx tablet (Nurtec ODT) headache #10 tabs spironolactone 25 mg tablet 25 mg PO DAILY #30 tabs 11/07/24 11/10/24 Rx Patient hx anesthesia problems: none Family hx anesthesia problems: none Results Review: All pre-operative results and documents have been reviewed as part of the pre-operative evaluation. [facility] Past Medical History Medical History Persistent headaches Abdominal pain IBS (irritable bowel syndrome) Colon cancer screening Dyspnea Acute sinusitis Acute bronchitis Cough Obstructive sleep apnea Suspected COVID-19 virus infection Migraine Acute sinusitis Encounter for monitoring diuretic therapy Essential hypertension (~2009) Gastroesophageal reflux disease without esophagitis Other allergic rhinitis Other hyperlipidemia Prediabetes Vitamin D deficiency HTN (hypertension) Surgical History Surgical History History of bilateral breast reduction surgery H/O bariatric surgery H/O section Family History Family History Mother Hypertension Father Family history of malignant neoplasm Patient's father is Stomach cancer Sibling Depression Other Asthma Grandparent Diabetes mellitus Other Family history of lung cancer Social History Social History Smoking status: Never smoker Second hand tobacco smoke exposure: No Alcohol intake: never Substance use: never Substance use type: does not use Do You Feel Safe in your Home?: Yes Lack of Transportation: No Lack of Food: Sometimes True Current Housing: I Have Housing Concerned About Future Housing: No Difficulty Paying Gas/Electric Bills: YES Difficulty Paying for Meds: No Currently Unemployed: No Education: High School Diploma/GED Difficulty w/ Childcare or Family Care: No Living arrangements: with family Occupation/Education: occupation Gender identity (if verbalized by the patient): Female Sexual Orientation (if Verbalized by the Patient): Straight or Heterosexual Spiritual care concerns: No Agree to blood products: Yes Anes - Eval Final PreProcedure Day of Procedure 11/10/24 12:07 Patient weight: overweight Heart: regular rate and rhythm Lungs: clear to auscultation Airway: Mallampati scale class II Neurological: alert and oriented Last oral intake: >/= 8 hours ASA classification: III Emergent: no Anesthetic plan: proceed Anesthesia type and monitoring: general GIVS and standard monitoring Results Review: All pre-operative results and documents have been reviewed as part of the pre-operative evaluation. Informed Consent: The patient's anesthetic plan and its attendant risks and benefits were discussed with the patient/family/POA. Questions were solicited and answers provided to the satisfaction of the patient/family/POA.
[2024-11-10] MEDS: LACTATED RINGERS 1,000 ML 150 ML IV CONT (12:10)
--- NOTE | 2024-11-10 12:23 | PM.IMHP ---
H&P: HPI History of Present Illness Date/Time: 11/10/24 12:23 Chief Complaint: GERD Narrative: this patient has a history of bariatric surgery, gastric sleeve. Despite taking pantoprazole 40 mg q.d., she complains of refractory heartburn. He is now referred for EGD. She never had this procedure before. Review of Systems Review of Systems: All systems reviewed & are unremarkable except as noted in HPI and below PMFSH Past Medical History Medical History Persistent headaches Abdominal pain IBS (irritable bowel syndrome) Colon cancer screening Dyspnea Acute sinusitis Acute bronchitis Cough Obstructive sleep apnea Suspected COVID-19 virus infection Migraine Acute sinusitis Encounter for monitoring diuretic therapy Essential hypertension (~2009) Gastroesophageal reflux disease without esophagitis Other allergic rhinitis Other hyperlipidemia Prediabetes Vitamin D deficiency HTN (hypertension) Surgical History Surgical History History of bilateral breast reduction surgery H/O bariatric surgery H/O section Family History Family History Mother Hypertension Father Family history of malignant neoplasm Patient's father is Stomach cancer Sibling Depression Other Asthma Grandparent Diabetes mellitus Other Family history of lung cancer Social History Social History Smoking status: Never smoker Second hand tobacco smoke exposure: No Alcohol intake: never Substance use: never Substance use type: does not use Do You Feel Safe in your Home?: Yes Lack of Transportation: No Lack of Food: Sometimes True Current Housing: I Have Housing Concerned About Future Housing: No Difficulty Paying Gas/Electric Bills: YES Difficulty Paying for Meds: No Currently Unemployed: No Education: High School Diploma/GED Difficulty w/ Childcare or Family Care: No Living arrangements: with family Occupation/Education: occupation Gender identity (if verbalized by the patient): Female Sexual Orientation (if Verbalized by the Patient): Straight or Heterosexual Spiritual care concerns: No Agree to blood products: Yes Meds Home Medications and Allergies Home Medications ?Medication ?Instructions ?Recorded ?Confirmed ?Type semaglutide (weight loss) 1 mg/0.5 2.6 mg subcut WEEKLY 04/13/23 11/10/24 History mL subcutaneous pen injector (Ana) montelukast 10 mg tablet 10 mg PO DAILY #90 tabs 08/17/23 11/10/24 Rx labetalol 100 mg tablet 200 mg (2 x 100 mg) PO Q12H #60 09/09/23 11/10/24 Rx tabs amlodipine 10 mg tablet 10 mg PO DAILY #90 tabs 03/08/24 11/10/24 Rx ergocalciferol (vitamin D2) 1,250 1,250 mcg PO 2XW #10 caps 03/08/24 11/10/24 Rx mcg (50,000 unit) capsule lisinopril 40 mg tablet 40 mg PO DAILY #90 tabs 03/08/24 11/10/24 Rx buspirone 7.5 mg tablet 7.5 mg PO BID PRN stress #40 tabs 04/21/24 11/07/24 Rx fluticasone propionate 50 See Rx Instructions .Route 05/18/24 11/10/24 Rx mcg/actuation nasal .COMPLEX #48 grams spray,suspension pantoprazole 40 mg granules 40 mg PO DAILY 06/13/24 11/10/24 History delayed-release for susp in packet hyoscyamine sulfate 0.125 mg tablet 0.125 mg PO QID PRN abdominal pain 07/13/24 11/07/24 Rx 1 month #120 tabs zolpidem 5 mg tablet 5 mg PO QHS PRN insomnia #30 tabs 07/20/24 11/07/24 Rx chlorthalidone 12.5 mg tablet 12.5 mg PO DAILY #30 tabs 09/02/24 11/10/24 Rx potassium chloride 10 mEq 10 meq PO DAILY #30 caps 09/02/24 11/10/24 Rx capsule,extended release sertraline 50 mg tablet 50 mg PO DAILY #30 tabs 09/02/24 11/10/24 Rx bupropion HCl 150 mg 24 hr tablet, 150 mg PO QAM #30 tabs 09/19/24 11/10/24 Rx extended release azelastine 137 mcg (0.1 %) nasal 1 - 2 spray intranasal Q12H #30 mL 09/29/24 11/10/24 Rx spray topiramate 25 mg tablet (Topamax) 25 mg PO DAILY #30 tabs 10/10/24 11/10/24 Rx doxazosin 1 mg tablet (Cardura) 1 mg PO QHS #30 tabs 11/07/24 11/10/24 Rx rimegepant 75 mg disintegrating 75 mg PO ONCE PRN migraine 11/07/24 11/10/24 Rx tablet (Nurtec ODT) headache #10 tabs spironolactone 25 mg tablet 25 mg PO DAILY #30 tabs 11/07/24 11/10/24 Rx Allergies Allergy/AdvReac Type Severity Reaction Status Date / Time No Known Allergies Allergy Verified 11/10/24 11:57 Vital Signs Vital Signs - 24 hr 11/10/24 12:06 Temperature 97.8 F Pulse Rate 65 Respiratory Rate 20 Blood Pressure 130/86 Pulse Oximetry 97 Oxygen Delivery Room Air Exam Const: General: cooperative and healthy appearing Resp: Effort & Inspection: normal respiratory effort and able to speak in complete sentences Auscultation: clear to auscultation bilaterally Cardio: Rate: regular rate Rhythm: regular rhythm GI: Inspection: normal to inspection GI Palp: No No hepatosplenomegaly present Auscultation: normal bowel sounds Rectal Exam: deferred Skin: General skin exam: normal color Psych: Appearance: grossly normal Mental Status: mental status grossly normal Assessment and Plan Assessment and plan (1) Gastroesophageal reflux disease without esophagitis: Code(s): K21.9 - Gastro-esophageal reflux disease without esophagitis Status: Acute Assessment and Plan: The patient is deemed a good candidate for the procedure. Consent signed. Will proceed.
--- NOTE | 2024-11-10 12:40 | S_PTH ---
PATIENT: Mercedez Weiss LOC: [facility] #:[id number] AGE/SX: 54/F ROOM: RE11/10/[address]: Cl Miranda MD : 1970 BED: DIS: 11/10/2024 SPEC #: [id number] RECD: 11/10/24 13:22 STATUS: KINGS REQ #: [id number] MARIBEL: 11/10/24 12:[address]: Cl Miranda DEPT: [facility] Surgical RECD BY: Candi Reynoso ENTERED: 11/10/24 13:22 SP TYPE: Surgical OTHR DR: Philomena HuntMD Tissues: A - Gastric Biopsy B - Gastric Biopsy Procedures: Hematoxylin and Eosin Stain Gross and Microscopic Level 4
[2024-11-10 12:44] VITALS: BP 139/101; PULSE 72; RESP 18; O2SAT 100
[2024-11-10 12:54] VITALS: BP 142/92; PULSE 60; RESP 18; O2SAT 100
[2024-11-10 13:04] VITALS: BP 139/95; PULSE 68; RESP 18; O2SAT 100
== END 2024-11-10 13:15 | disposition home or self-care (01) ==
PROVIDERS: PCP Family Medicine; Referring Provider Nurse Practitioner Family; Visit Provider Internal Medicine Gastroenterology
PROC: 0DJ08ZZ Inspection of Upper Intestinal Tract, Via Natural or Artificial Opening Endoscopic (ICD-10-PCS; CPT 43239; principal; 2024-11-10 13:00)
DX: K21.9 Gastro-esophageal reflux disease without esophagitis (principal); K44.9 Diaphragmatic hernia without obstruction or gangrene; K29.30 Chronic superficial gastritis without bleeding; Z98.84 Bariatric surgery status; Z79.899 Other long term (current) drug therapy
CPT/HCPCS: 43239; 82948; 88305; J2003; J2704; J7120

== ENCOUNTER 2024-12-24 15:53 | Emergency (ER) | payer OTHER, SELFPAY ==
--- NOTE | ~2024-12-24 | XR_ITS ---
EXAMINATION: XR humerus RT, 12/24/2024 16:32 CDT HISTORY: biceps tenderness/no known injury COMPARISON: No comparisons available. Findings: No acute fracture or malalignment. No significant degenerative changes. Soft tissues unremarkable. Impression: No acute fracture or malalignment. Reviewed, dictated and finalized at location P. Impression: No acute fracture or malalignment.
--- NOTE | ~2024-12-24 | XR_ITS ---
EXAMINATION: XR shoulder RT min 2V, 12/24/2024 16:32 CDT HISTORY: AC and rotator cuff tenderness COMPARISON: No comparisons available. Findings: No acute fracture or malalignment. No significant degenerative changes. Soft tissues unremarkable. Impression: No acute fracture or malalignment. Reviewed, dictated and finalized at location P. Impression: No acute fracture or malalignment.
--- OUTSIDE RECORDS SUMMARY | 2024-12-24 15:56 | XMS_ITS | Clinical Summary ---
Author Organization [facility] Address [address] [place] [address] Care Team Providers Care Rn Procedures Name Role Phone Philomena Hunt MD Primary Care Provider [phone] Source Comments [facility],non-owned Affiliates and Associated Physician Practices is amultiple site organization consisting of ambulatory clinics and hospital sitesin [place], [place], [place] and [place]. This disclosure is being madepursuant to the Care Everywhere program and may not contain all information available regarding this patient. 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 Gender Identity Not on file Sexual Orientation [...] - 19+ 3-dose series) 01/13/1991 PAP SMEAR 01/13/1993 SCREENING FOR DIABETES 12/04/2020 PNEUMOCOCCAL VACCINE 50+ (1 of 1 - PCV) 01/13/2022 ZOSTER VACCINE (1 of 2) 01/13/2022 DEPRESSION SCREENING 02/24/2024 COVID-19 VACCINE (1 - 2023-2 5 season) 2024 INFLUENZA VACCINE (#1) 2024 11/26/2018 HIB VACCINE Aged Out No [...] patient's age to complete this topic Insurance [facility] SELF PAY NO INSURANCE Member Subscriber Plan / Payer (Ef fective for All Dates) Name:HansonMercedez Member ID:Not on file Relation to Subscriber:Not on file Name:HANSON,CASASHWINRachel Subscriber ID:Not on file (Home) Address: [address] [place] [id number] Payer ID:Not on file Group ID:Not on file Type:Self Pay Address: [facility] Care Teams Rn Procedures Relationship Specialty Start Date End Date Philomena Hunt MD [address] [place] [address] PCP - General 02/19/09
--- OUTSIDE RECORDS SUMMARY | 2024-12-24 15:56 | XMS_ITS | Clinical Summary ---
Author Organization [facility] Address [address] [place] [address] Care Team Providers Care Photography Teacher Name Role Phone Philomena Hunt MD Primary Care Provider [phone] Allergies No known active allergies Medications magnesium oxide 400 MG tablet Take 400 mg by mouth daily. Active topiramate 25 MG tablet Take 50 mg by mouth daily. Active labetalol 100 MG tablet Take 100 mg by mouth 2 (two) times daily. 9 Active amLODIPine 10 MG tablet Take 10 mg by mouth daily. Active pantoprazole EC 40 MG tablet Take 1 tablet by mouth daily. 9 Active acetaminophen 500 MG tablet Take 1,000 mg by mouth every 6 (six) hours as needed for Pain or Fever. Active rimegepant (NURTEC) 75 MG disintegrating tablet Take 1 tablet (75 mg total) by mouth. Max of 1 tablet (75 mg) in 24 hours. Active erenumab-aooe (AIMOVIG) 140 mg/mL injection (autoinjector)Indic ations:Chronic migraine without aura without status migrainosus, not intractable Inject 1 mL (140 mg total) into the skin every 30 (thirty) days. 1 mL 11 5 12/15/19 26 Active Active Problems Problem Noted Date Diagnosed Date COVID-19 virus infection 06/03/2019 Hypertension 01/05/2019 Dyspnea on exertion 01/05/2019 Encounters Date Type Department Care Team Description 12/19/[facility] [address] [facility] - [address] [place] [address] Shilo Cheung MD 12/19/2024 [facility]phone [facility] [address] [facility], [address] [place] [phone] Dottie Dillon NP Prior Authorization (Aim[employer]ig approval) 12/14/2024 11:00 AM CDT Office [facility] [address] [facility], [address] [place] [phone] Dottie Dillon NP Establish Care (Getting more frequent over the last few months.) 12/14/2024 Travel from Last 3 Months Social History Tobacco Use Types Packs/Day Years Used Date Smoking Tobacco: Never Smokeless Tobacco: Never Tobacco Cessation:Counseling Given: No Alcohol Use Standard Drinks/Week Comments Not Currently 0 (1 standard drink = 0.6 oz pur e alcohol) Comments No Sex and Gender Information Value Date Recorded Sex Assigned at Not on file Legal Sex Female 8:39 PM CDT Gender Identity Not on file Sexual Orientation Not on file Last Filed Vital Signs Vital Sign Reading Time Taken Comments Blood Pressure 137/91 12/14/2024 11:11 AM CDT Pulse 60 12/14/2024 11:11 AM CDT Temperature 37 C (98.6 F) 06/11/2019 7:45 AM CDT Respiratory Rate 9 06/11/2019 7:45 AM CDT Oxygen Saturation 100% 12/14/2024 11:11 AM CDT Inhaled Oxygen Concentration - - Weight 73.5 kg (162 lb) 12/14/2024 11:11 AM CDT Height 160 cm (5' 3) 12/14/2024 11:11 AM CDT Body Mass Index 28.7 12/14/2024 11:11 AM CDT Plan of Treatment Upcoming Encounters Date Type Department Care Team (Late st Contact Info) Description 01/23/2025 7:00 AM EQUIPMENT MECHANIC SPECIALIST Appointment [facility] [place] [address] Dottie Dillon NP [address] [facility] [address] [place] [address] 01/23/2025 7:30 AM EQUIPMENT MECHANIC SPECIALIST Appointment [place] [address] [facility] [place] [address] Dottie Dillon NP [address] [facility] [address] [place] [address] 03/06/2025 9:40 AM EQUIPMENT MECHANIC SPECIALIST Office Visit [facility] Multispec[facility]ty Care - [facility] [address] [facility], [address] [place] [phone] Dottie Dillon NP [address] [facility] [address] [place] [address] Health Maintenance Due Date Last Done Comments Colorectal Cancer Screening Colonoscopy (10 Years) 1972 Annual Physical 01/13/1975 Hepatitis C 01/13/1990 DTaP, Tdap and Td Vaccines ( 1 - Tdap) 01/13/1991 Hepatitis B Vaccines (1 of 3 - 19+ 3-dose series) 01/13/1991 Mammogram Screening 2012 Pneumococcal Vaccine: 50+ Years (1 of 1 - PCV) 01/13/2022 Zoster Vaccines (1 of 2) 01/13/2022 PHQ-2 (Physician [facility]) 02/24/2024 COVID-19 Vaccine (3 - 2024-2 6 season) 2024 05/21/2020, 04/30/2020 Influenza Adult (#1) 2024 12/06/2020, 11/26/2018 Hepatitis A Vaccines Aged Out No long er eligible based on patient's age to complete this topic Meningococcal B Vaccine Aged Out No l onger eligible based on patient's age to complete this topic Meningococcal Vaccine Aged Out No genesis hari eligible based on patient's age to complete this topic RSV Immunizations Under 20 Months Aged Out No longer eligible b ased on patient's age to complete this topic Insurance [facility] Advance Directives * Full Code (Latest Code Status on File) Date Activated Date Inactivated Comments 06/04/2019 2:06 AM 06/11/2019 6:55 PM Care Teams Photography Teacher Relationship Specialty Start Date End Date Philomena Hunt MD PCP - General FAMILY PRACTICE 06/03/19
--- OUTSIDE RECORDS SUMMARY | 2024-12-24 15:56 | XMS_ITS | Clinical Summary ---
Author Organization [facility] Address [address] [place] [address] Phone Care Team Providers Care Electro Tech Name Role Phone Philomena Hunt MD Primary Care Provider [phone] Allergies No known active allergies Medications amLODIPine [...] Encounters Date Type Department Care Team Description 12/21/2024 External Device Data [facility] Provider, Abstract 12/20/2024 External Device Data [facility] Provider, Abstract 12/14/2024 External Device Data [facility] Provider, Abstract 12/13/2024 External Device Data [facility] Provider, Abstract 11/09/2024 External Device Data [facility] Provider, Abstract 11/08/2024 External Device Data [facility] Provider, Abstract 09/27/2024 External Device Data [facility] Provider, Abstract [...] Description 05/12/2025 9:00 AM CDT Office Visit [facility] - [place] [address] [facility] [address] [place] [address] Dax Bianchi MD [address] [facility] [address] [place] [address] Health Maintenance Due Date Last [...] 2024 11/26/2018 Medical Devices Implanted Type Area Used Car Renovator Device Identifier Shelf Expiration Date Model / Serial / Lot Seamguard Endogia 60 [id number] - [id number] Implanted:Qty : 3 on 08/29/2019 by Phi Wen MD at [facility] Biological N/A: Stomach [employer] 10/25/2021 [id number] / / [id number] Seamguard Endogia 60 Blk [id number] - [id number] Implanted:Qty : 2 on 08/29/2019 by Phi Wen MD at [facility] Biological N/A: Stomach [employer] 07/23/2021 [id number] / / [id number] Insurance [facility] OPTIONS PPO [id number] RX [employer] PLANS (INTERNAL) [facility] Internal Plans RX [employer] Express Member Subscriber Plan / Payer (Ef fective 2020-Present) Name:Mercedez Hanson Renzo Relation to Subscriber:Self Name:Mercedez Hanson Payer ID:[id number] ([facility]) Type:PPO Address: [address] [place] [id number] [facility] OPEN ACCESS HMO Advance Directives For more information, please contact: [phone] * Full Code (Latest Code Status on File) Date Activated Date Inactivated Comments 08/29/2019 10:36 AM 08/31/2019 8:38 PM * Full Code Date Activated Date Inactivated Comments 08/29/2019 6:57 AM 08/29/2019 10:36 AM Care Teams Electro Tech Relationship Specialty Start Date End Date Philomena Hunt MD [address] [place] [address] PCP - General Family Practice 07/20/19
--- OUTSIDE RECORDS SUMMARY | 2024-12-24 15:56 | XMS_ITS | Clinical Summary ---
Author Organization [facility] Address [address] [place] [address] Care Team Providers Care Saw Cleaner Name Role Phone Philomena Hunt MD Primary Care Provider [phone] Allergies No known active allergies Medications pantoprazole DR (PROTONIX) 40 mg EC tablet Take 1 tablet by mouth daily 9 Active amLODIPine (NORVASC) 10 mg tablet Take 10 mg by mouth daily Active lisinopriL (PRINIVIL,ZESTR IL) 40 mg tablet Take 40 mg by mouth daily Active montelukast (SINGULAIR) 10 mg tablet Take 10 mg by mouth daily as needed 0 Active ergocalciferol (VITAMIN D) 50,000 unit capsule Take 50,000 Units by mouth once a week 0 Active estradioL (ESTRACE) 2 mg tablet Take 1 mg by mouth daily Active chlorthalidone 25 mg tablet Take 12.5 mg by mouth daily 2 Active predniSONE (DELTASONE) 20 mg tablet Take 40 mg by mouth daily 2 Active benzonatate (TESSALON) 200 mg capsule TAKE 1 CAPSULE BY MOUTH THREE TIMES DAILY NEEDED FOR COUGH 2 Active cetirizine (ZyrTEC) 10 mg tablet Take 10 mg by mouth daily 2 Active labetaloL (NORMODYNE,VALDEZ DATE) 200 mg tablet Take 200 mg by mouth 2 (two) times a day Active venlafaxine (EFFEXOR) 37.5 mg tablet Take 37.5 mg by mouth 2 (two) times a day Active famotidine (PEPCID) 20 mg tablet Take 20 mg by mouth daily 2 Active fluticasone propionate (FLONASE) 50 mcg/actuation nasal spray 2 Active azelastine (ASTELIN) 137 mcg (0.1 %) nasal spray Administer 1 spray into each nostril 2 (two) times a day 5 Active buPROPion XL (WELLBUTRIN XL) 150 mg 24 hr tablet Take 1 tablet (150 mg total) by mouth daily 5 Active hyoscyamine (LEVSIN) 0.125 mg tablet Take 1 tablet (0.125 mg total) by mouth every 4 (four) hours as needed 5 Active potassium chloride ER 10 mEq CR capsule Take 1 tablet/capsule (10 mEq total) by mouth daily 5 Active Wegovy 2.4 mg/0.75 mL auto-injector Inject 2.4 mg under the skin every 7 days Active sertraline (ZOLOFT) 50 mg tablet Take 1 tablet (50 mg total) by mouth daily 5 Active zolpidem (AMBIEN) 5 mg tablet Take 1 tablet (5 mg total) by mouth as needed for sleep 5 Active escitalopram (LEXAPRO) 10 mg tablet Take 1 tablet (10 mg total) by mouth daily Active doxazosin (CARDURA) 1 mg tablet Take 1 tablet (1 mg total) by mouth nightly 30 tablet 11 5 10/06/19 26 Active spironolactone (ALDACTONE) 25 mg tablet Take 1 tablet (25 mg total) by mouth daily Active Active Problems Problem [...] blood pressure control and weight loss. Follow Encounters Date Type Department Care Team Description 10/27/2024 Telephone [facility] [address] [facility] [address] [place] [address] [place] [address] Shanta Kat MD Follow-up 10/25/2024 Telephone [facility] [facility] [address] [place] [address] [place] [address] Sakina Estrada NP Follow-up 10/06/2024 Orders Only [facility] Scanning, Provider 10/05/2024 12:30 PM CDT Office Visit [facility] [address] [place] [address] 8th [place] [address] [place] [address] Sakina Estrada NP Uncontrolled hypertension (Primary Dx) 10/05/2024 Results Follow-Up [facility] [address] [place] [address] 8th [place] [address] [place] [address] Sakina Estrada NP ECG 12 lead 10/03/2024 Documentation [facility] Medicine Scheduling [facility] [place] [address] Cee Lyn from Last 3 Months Surgical History Surgery Date Site/Laterality Comments HYSTERECTOMY [...] Tobacco: Never Tobacco Cessation:Counseling Given: Not Answered AUDIT-C Answer Date Recorded Q1: How often [...] on file 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 Gender Identity Not on file Sexual Orientation Not on file Obstetrics History Last Filed Vital Signs Vital Sign Reading Time Taken Comments Blood Pressure 117/83 10/05/2024 12:07 PM CDT Pulse 73 10/05/2024 12:07 PM CDT Temperature 36.8 C (98.3 F) 10/05/2024 12:07 PM CDT Respiratory Rate 16 08/18/2020 8:50 AM CDT Oxygen Saturation 100% 10/05/2024 12:07 PM CDT Inhaled Oxygen Concentration - - Weight 71.7 kg (158 lb) 10/05/2024 12:07 PM CDT Height 160 cm (5' 3) 10/05/2024 12:07 PM CDT Body Mass Index 27.99 10/05/2024 12:07 PM CDT Plan of Treatment Health Maintenance Due Date Last Done Comments Breast Cancer Screening-Mammogram 1970 Colon Cancer Screening-Colonoscopy 1972 Depression Screening 1972 Hepatitis C Screening 1972 DTaP/Tdap/Td Vaccine (1 - Tdap) 01/13/1983 Hepatitis B Screening 01/13/1990 Regular Well Visit/Exam 18-64 01/13/1990 Zoster Vaccine (1 of 2) 01/13/2022 Influenza Vaccine (#1) 2024 9, 11/23/2017 Pneumococcal vaccine <65 Aged Out No longer eligible based on patient's age to complete this topic Procedures Procedure Name Priority Date/Time Associated Diagnosis Comments SCAN - LABS 10/06/2024 ECG 12-LEAD Routine 10/05/2024 12:19 PM CDT Uncontrolled hypertension from Last 3 Months Results * SCAN - LABS (10/06/2024) us Provider Scanning Final Result * ECG 12 lead (10/05/2024 12:19 PM CDT) Sakina Rater ELECTRICIAN RECTIFIER MAINTENANCE ECG ORDERABLES Final Result from Last 3 Months Insurance [facility] HMO/PPO Address: [facility] [id number] [place] [phone] [facility] CHOICE PLUS CHOICE PLUS Advance Directives For more information, please contact: [phone] * Full Code (Latest Code Status on File) Date Activated Date Inactivated Comments 08/17/2020 3:46 PM 08/18/2020 6:00 PM Care Teams Saw Cleaner Relationship Specialty Start Date End Date Philomena Hunt MD PCP - General Family Medicine 11/03/18
--- OUTSIDE RECORDS SUMMARY | 2024-12-24 15:56 | XMS_ITS | Encounter Summary ---
Author Organization [facility] Address [address] [place] [address] Care Team Providers Care Training Administrator Name Role Phone Philomena Hunt MD Primary Care Provider [phone] Encounter Details Date Type Department Care Team ([facility] Contact Info) Description 08/22/2019 Abstract [facility] Operating Room [address] [address] [place] [address] [facility] [address] [place] [address] Social History Tobacco Use Types Packs/Day Years [...] Hospital Oncology [facility] H[facility]ology - [place] [address] [facility] [address] [place] [address] Dax Bianchi MD [address] [facility] [address] [place] [address] documented as of this encounter Visit Diagnoses Not on filedocumented in this encounter Additional Health Concerns Infection Onset Date Last Indicated Resolved Time COVID-19 07/29/2019 07/29/2019 08/28/2019 1:16 AM CDT documented as of this encounter Care Teams Training Administrator Relationship Specialty Start Date End Date Philomena Hunt MD [address] [place] [id number] PCP - General Family Practice 07/20/19 documented as of this encounter
[2024-12-24 16:01] VITALS: BP 154/100; PULSE 60; RESP 18; TEMP 36.1; O2SAT 100
--- NOTE | 2024-12-24 16:22 | ED.GENADULT ---
HPI - General Adult General Chief complaint: Extremity Problem,Nontraumatic Stated complaint: RT Arm Pain Time Seen by Provider: 12/24/24 16:23 Source: patient Mode of arrival: ambulatory Limitations: no limitations History of Present Illness HPI narrative: 54-year-old female patient presents to [facility] with complaints of right arm pain for the last 2 weeks. 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 Patient does remember specifically a time where she was injured during this but states she does do a lot a repetitive motion has been sore into the arm last couple weeks. Patient has been taking Tylenol and ibuprofen. Patient denies chest pain shortness of breath. Patient does have long history of high blood pressure and is on about 3 or 4 medications for this. Patient denies any abdominal pain nausea vomiting or diarrhea. Denies fevers body aches or chills. Related Data Home Medications ?Medication ?Instructions ?Recorded ?Confirmed ?Last Taken ?Type semaglutide (weight loss) 1 mg/0.5 2.6 mg subcut WEEKLY 04/13/23 11/10/24 10/26/24 History mL subcutaneous pen injector (Wegovy) pantoprazole 40 mg granules 40 mg PO DAILY 06/13/24 12/24/24 11/09/24 History delayed-release for susp in packet Allergies Allergy/AdvReac Type Severity Reaction Status Date / Time No Known Allergies Allergy Verified 12/24/24 16:06 Review of Systems Review of Systems: CONSTITUTIONAL: Denies fever, chills, or sweats. EYES: Denies visual changes, redness, or discharge. ENT: Denies rhinorrhea, congestion, sore throat, or otalgia. CARDIOVASCULAR: Denies chest pain, palpitations, or edema. RESPIRATORY: Denies cough or dyspnea. GASTROINTESTINAL: Denies abdominal pain, nausea, vomiting, or diarrhea. GENITOURINARY: Denies dysuria or hematuria. SKIN: Denies rash or itching. MUSCULOSKELETAL: Denies back pain, joint pain, or myalgia. Positive right upper arm pain NEUROLOGIC: Denies headache, numbness, or weakness. PSYCHIATRIC: Denies anxiety or depression. [facility] Past Medical History Medical History Persistent headaches Abdominal pain IBS (irritable bowel syndrome) Colon cancer screening Dyspnea Acute sinusitis Acute bronchitis Cough Obstructive sleep apnea Suspected COVID-19 virus infection Migraine Acute sinusitis Encounter for monitoring diuretic therapy Essential hypertension (~2009) Gastroesophageal reflux disease without esophagitis Other allergic rhinitis Other hyperlipidemia Prediabetes Vitamin D deficiency HTN (hypertension) Surgical History Surgical History History of bilateral breast reduction surgery H/O bariatric surgery H/O section Family History Family History Mother Hypertension Father Family history of malignant neoplasm Patient's father is Stomach cancer Sibling Depression Other Asthma Grandparent Diabetes mellitus Other Family history of lung cancer Social History Social History Smoking status: Never smoker Second hand tobacco smoke exposure: No Alcohol intake: never Substance use: never Substance use type: does not use Do You Feel Safe in your Home?: Yes Lack of Transportation: No Lack of Food: Sometimes True Current Housing: I Have Housing Concerned About Future Housing: No Difficulty Paying Gas/Electric Bills: YES Difficulty Paying for Meds: No Currently Unemployed: No Education: High School Diploma/GED Difficulty w/ Childcare or Family Care: No Living arrangements: with family Occupation/Education: occupation Gender identity (if verbalized by the patient): Female Sexual Orientation (if Verbalized by the Patient): Straight or Heterosexual Spiritual care concerns: No Agree to blood products: Yes Comments At the time of my signature I agree with nursing past medical history, surgical, social, and family history. There is no relevant family history pertinent to the presenting complaint. Exam Narrative: GENERAL: Well-appearing, well-nourished, and in no acute distress. HEAD: Normocephalic, atraumatic. EYES: PERRLA and EOMI. ENT: Nares clear, no rhinorrhea or epistaxis. Mucous membranes moist. NECK: Supple. No lymphadenopathy CHEST: Clear to auscultation. No respiratory distress. HEART: Regular rate and rhythm. No murmur heard. Normal peripheral pulses. ABDOMEN: Soft, nontender, nondistended, normal active bowel sounds. EXTREMITIES: The R shoulder is without obvious asymmetry or deformity when compared to the L shoulder. No surface trauma, ecchymosis, crepitus. No bony deformity or prominence of the humeral head No erythema, warmth, swelling. tenderness to palpation to A to C joint. No tenderness to palpation of the bicipital groove or soft tissues. tenderness noted along the circumference of the lower biceps of the right upper arm. Patient does have weakness noted to the right arm as compared to left when testing strength would rated about 4/5 and the left side 5/5 No tenderness to palpation of the muscles of the sterncleidomastoid, pectorals, Tenderness to thebiceps/triceps, no tenderness to thedeltoid, trapezius, rhomboid, latissimus dorsi, tenderness to the rotator cuff. pain and limitation with active or passive abduction/adduction, no tenderness to the internal/external rotation, flexion/extension. Negative empty can and drop arm test (rotator cuff). patient states she does have pain Fang the right arm about shoulder level. Also has pain to the right upper arm when hyperextending the right shoulder. No axillary tenderness or lymphadenopathy. Normal sensation over the deltoid and ability to flex arm at elbow indicates intact axillary nerve function. Distal motor and neurovascular status is intact. SKIN: Warm, dry, no rash. NEURO: No focal deficits. Alert and oriented x3. Course Course Level of Care: Express Care Visit Reevaluation(s) Reevaluation #1: re-evaluate patient after x-rays resulted. Discussed with patient that the x-ray is negative for any acute fracture. Discussed with patient that I highly suspect possible tendon tear to the shoulder and biceps area. Discussed with patient that she will need to follow-up with ortho for further evaluation possible to PT evaluation. Discussed with patient I will provide her some muscle relaxants to help with the pain and encouraged her to take some turmeric for the inflammation rather than ibuprofen which could be elevating her blood pressure. Discussed with patient she can continue taking Tylenol as well. Patient verbalized understanding denies any other questions or concerns at this time. Date: 12/24/24 Time: 17:35 Vital Signs Vital signs: Vital Signs Temperature 36.1 C L 12/24/24 16:01 Pulse Rate 60 12/24/24 16:01 Respiratory Rate 18 12/24/24 16:01 Blood Pressure 154/100 H 12/24/24 16:01 Pulse Oximetry 100 12/24/24 16:01 Oxygen Delivery Room Air 12/24/24 16:01 Temperature 36.1 C L 12/24/24 16:01 Pulse Rate 60 12/24/24 16:01 Respiratory Rate 18 12/24/24 16:01 Blood Pressure 154/100 H 12/24/24 16:01 Pulse Oximetry 100 12/24/24 16:01 Oxygen Delivery Room Air 12/24/24 16:01 Vital signs reviewed. The patient has been informed that they may have pre-hypertension or Hypertension based on a BP reading in the department. I recommend that the patient call the primary care provider listed on their discharge instructions or a physician of their choice this week to arrange follow up for further evaluation of possible pre-hypertension or Hypertension Medical Decision Making Differential Diagnosis Differential Diagnosis: Differential diagnosis: Neurovascular compromise, anterior shoulder dislocation, posterior dislocation, facture, AC separation, shoulder cuff tear, bursitis, tendinitis Vital Signs Vital Signs: Vital Signs Temperature 36.1 C L 12/24/24 16:01 Pulse Rate 60 12/24/24 16:01 Respiratory Rate 18 12/24/24 16:01 Blood Pressure 154/100 H 12/24/24 16:01 Pulse Oximetry 100 12/24/24 16:01 Oxygen Delivery Room Air 12/24/24 16:01 Temperature 36.1 C L 12/24/24 16:01 Pulse Rate 60 12/24/24 16:01 Respiratory Rate 18 12/24/24 16:01 Blood Pressure 154/100 H 12/24/24 16:01 Pulse Oximetry 100 12/24/24 16:01 Oxygen Delivery Room Air 12/24/24 16:01 Imaging Data Radiologist's impression: [address] [address] XRay Report Signed Patient: Mercedez Weiss : 1970 MR#: [id number] Age: 54 Acct:[id number] Loc: [facility] ADM Date: 12/24/[address]: Ordering Physician: Shelby Swift APRN Date of Service: 12/24/24 Procedure(s): XR shoulder RT min 2V Accession Number(s): [id number] cc: Philomena Hunt MD; Jamison, Shelby D. FINANCE PROFESSIONAL~ EXAMINATION: XR shoulder RT min 2V, 12/24/2024 16:32 CDT HISTORY: AC and rotator cuff tenderness COMPARISON: No comparisons available. Findings: No acute fracture or malalignment. No significant degenerative changes. Soft tissues unremarkable. Impression: No acute fracture or malalignment. Reviewed, dictated and finalized at location P. Critical Care Time Critical Care Time Critical Care Time: No Discharge Plan Discharge Clinical Impression: Injury of right shoulder and upper arm Patient Disposition: Home Condition: Stable Instructions: Antibiotic Form, Arm Pain (ED) Additional Instructions: Ice to the area 20-30 minutes 4-6 times a day Elevate above heart Tylenol for lesser pain May take turmeric 1500 mg twice a day to help with inflammation and pain and this may also in turn help lower your blood pressure., take the muscle relaxants as needed for pain as directed. Please call the ortho surgeon for follow-up for assessment of a possible tendon tear to the biceps and shoulder. Follow up with your primary care provider if the condition is not improving within 1 week or sooner if the Condition worsens with numbness, tingling, decrease sensation with weakness to seek ER. Patient Language: Vincentian Prescriptions: New cyclobenzaprine 10 mg tablet 10 mg PO TID PRN (Reason: muscle spasm) 14 Days Qty: 42 0RF No Action zolpidem 5 mg tablet 5 mg PO QHS PRN (Reason: insomnia) Qty: 30 1RF topiramate [Topamax] 25 mg tablet 25 mg PO DAILY Qty: 30 2RF azelastine 137 mcg (0.1 %) spray,non-aerosol 1 - 2 spray intranasal Q12H Qty: 30 0RF Rx Instructions: administer into each nostril. Aim back/up/out spironolactone 25 mg tablet 25 mg PO DAILY Qty: 30 0RF Nurtec ODT 75 mg tablet,disintegrating 75 mg PO ONCE PRN (Reason: migraine headache) Qty: 10 0RF Rx Instructions: as a single dose doxazosin [Cardura] 1 mg tablet 1 mg PO QHS Qty: 30 0RF Wegovy 1 mg/0.5 mL pen injector 2.6 mg subcut WEEKLY Rx Instructions: administer weeks 9 through 12 of therapy montelukast 10 mg tablet 10 mg PO DAILY Qty: 90 1RF Rx Instructions: at hs buspirone 7.5 mg tablet 7.5 mg PO BID PRN (Reason: stress) Qty: 40 0RF pantoprazole [address] for susp in packet 40 mg PO DAILY potassium chloride 10 mEq capsule, extended release 10 meq PO DAILY Qty: 30 3RF sertraline 50 mg tablet 50 mg PO DAILY Qty: 30 3RF chlorthalidone 12.5 mg tablet 12.5 mg PO DAILY Qty: 30 3RF lisinopril 40 mg tablet 40 mg PO DAILY Qty: 90 2RF ergocalciferol (vitamin D2) 1,250 mcg (50,000 unit) capsule 1,250 mcg PO 2XW Qty: 10 3RF amlodipine 10 mg tablet 10 mg PO DAILY Qty: 90 2RF fluticasone propionate 50 mcg/actuation spray,suspension See Rx Instructions .ROUTE .COMPLEX Qty: 48 3RF Dose Instruction: USE 2 SPRAYS IN EACH NOSTRIL DAILY Rx Instructions: USE 2 SPRAYS IN EACH NOSTRIL DAILY hyoscyamine sulfate 0.125 mg tablet 0.125 mg PO QID PRN (Reason: abdominal pain) 30 Days Qty: 120 5RF bupropion HCl 150 mg tablet extended release 24 hr 150 mg PO QAM Qty: 30 5RF labetalol 100 mg tablet See Rx Instructions .ROUTE .COMPLEX Qty: 60 1RF Dose Instruction: TAKE 2 TABLETS BY MOUTH EVERY 12 HOURS Rx Instructions: TAKE 2 TABLETS BY MOUTH EVERY 12 HOURS Follow-up/Referrals: Philomena Hunt MD [Primary Care Provider, Family Practice] Twan Cabral MD [Physician, Orthopedics] Time of Disposition: 17:32
== END 2024-12-24 17:36 | disposition home or self-care (01) ==
PROVIDERS: Emergency Provider Nurse Practitioner Family; PCP Family Medicine
DX: S49.91XA Unspecified injury of right shoulder and upper arm, initial encounter (principal); X58.XXXA Exposure to other specified factors, initial encounter; I10 Essential (primary) hypertension; K21.9 Gastro-esophageal reflux disease without esophagitis; E78.49 Other hyperlipidemia; R73.03 Prediabetes; E55.9 Vitamin D deficiency, unspecified
CPT/HCPCS: 73030; 73060; 99213; G0463

== ENCOUNTER 2024-12-26 17:08 | Outpatient (CLI) | payer OTHER, SELFPAY ==
--- OUTSIDE RECORDS SUMMARY | 2024-12-26 17:11 | XMS_ITS | Clinical Summary ---
Author Organization [facility] Address [address] [place] [address] Care Team Providers Care Senior Mobile Web Developer Name Role Phone Philomena Hunt MD Primary Care Provider [phone] Allergies No known active allergies Medications magnesium [...] Department Care Team Description 12/19/2024 [facility] Documentation [facility] - [address] [place] [address] Shilo Cheung MD 12/19/2024 [facility]phone [facility] [address] [facility], [address] [place] [phone] Dottie Dillon NP Prior Authorization ([employer] approval) 12/14/2024 11:00 AM CDT [facility] [address] [facility], [address] [place] [phone] Dottie Dillon NP Establish Care (Getting more [...] st Contact Info) Description 01/23/2025 7:00 AM MEAT GRINDER Appointment [facility] [place] [address] Dottie Dillon NP [address] [facility] [address] [place] [address] 01/23/2025 7:30 AM MEAT GRINDER Appointment [facility] [place] [address] Dottie Dillon NP [address] [place] [address] 03/06/2025 9:40 AM MEAT GRINDER Office Visit [facility] Multispecialty Care - [facility] [address] [facility], [address] [place] [id number] Dottie Dillon NP [address] [facility] [address] [place] [address] Health Maintenance Due Date Last Done Comments Colorectal Cancer Screening Colonoscopy (10 Years) 1970 Annual Physical 01/13/1975 Hepatitis C 01/13/1990 DTaP, Tdap and Td Vaccines ( 1 - Tdap) 01/13/1991 Hepatitis B Vaccines (1 of 3 - 19+ 3-dose series) 01/13/1991 Mammogram Screening 2012 Pneumococcal Vaccine: 50+ Years (1 of 1 - PCV) 01/13/2022 Zoster Vaccines (1 of 2) 01/13/2022 PHQ-2 (Physician [place]) 02/24/2024 COVID-19 Vaccine (3 - 2024-2 6 [...] patient's age to complete this topic Insurance [facility] Advance Directives * Full Code (Latest Code Status on File) Date Activated Date Inactivated Comments 06/04/2019 2:06 AM 06/11/2019 6:55 PM Care Teams Senior Mobile Web Developer Relationship Specialty Start Date End Date Philomena Hunt MD PCP - General FAMILY PRACTICE 06/03/19
--- OUTSIDE RECORDS SUMMARY | 2024-12-26 17:11 | XMS_ITS | Clinical Summary ---
Author Organization [facility] Address [address] [place] [address] Care Team Providers Care Shear Operator Helper Name Role Phone Philomena Hunt MD Primary Care Provider [phone] Allergies No known active allergies Medications pantoprazole [...] Type Department Care Team Description 10/27/2024 Telephone [facility] [place] [place] Cardiology [address] [facility] 8th [place] [address] [place] [address] Shanta Kat MD Follow-up 10/25/2024 Telephone [facility] [place] [place] [facility] 8th [place] [address] [place] [address] Sakina Estrada NP Follow-up 10/06/2024 Orders Only [facility] Scanning, Provider 10/05/2024 12:30 PM CDT Office Visit [facility] [place] [place] Cardiology [address] [place] [address] 8th [place] [address] [place] [address] Sakina Estrada NP Uncontrolled hypertension (Primary Dx) 10/05/2024 Results Follow-Up [facility] [place] [place] [facility] [address] [place] [address] 8th [place] [address] [place] [address] Sakina Estrada NP ECG 12 lead 10/03/2024 Documentation [facility] Medicine Scheduling [facility] [place] [address] Cee Lyn from Last 3 Months Surgical [...] on file 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 Gender Identity Not on file Sexual [...] lead (10/05/2024 12:19 PM CDT) Sakina Rater PLUG GROWER ECG ORDERABLES Final Result from Last 3 Months Insurance [facility] CHOICE PLUS [facility] HMO/PPO Address: [facility] [id number] [place] [id number] [facility] CHOICE PLUS CHOICE PLUS Advance Directives For more information, please contact: [phone] * Full Code (Latest Code Status on File) Date Activated Date Inactivated Comments 08/17/2020 3:46 PM 08/18/2020 6:00 PM Care Teams Shear Operator Helper Relationship Specialty Start Date End Date Philomena Hunt MD PCP - General Family Medicine 11/03/18
--- OUTSIDE RECORDS SUMMARY | 2024-12-26 17:11 | XMS_ITS | Encounter Summary ---
Author Organization [facility] Address [address] [place] [address] Care Team Providers Care Educational Diagnostician Name Role Phone Philomena Hunt MD Primary Care Provider [phone] Encounter Details Date Type Department Care Team ([facility] Contact Info) Description 08/22/2019 Abstract [facility] [address] [address] [place] [address] [facility] [address] [place] [address] Social History Tobacco Use Types [...] Description 05/12/2025 9:00 AM CDT Office Visit [facility] Oncology and Hematology - [place] [address] [facility] [address] [place] [address] Dax Bianchi MD [address] [facility] [address] [place] [address] documented as of this encounter Visit Diagnoses Not on filedocumented in this encounter Additional Health Concerns Infection Onset Date Last Indicated Resolved Time COVID-19 07/29/2019 07/29/2019 08/28/2019 1:16 AM CDT documented as of this encounter Care Teams Educational Diagnostician Relationship Specialty Start Date End Date Philomena Hunt MD [address] [place] [id number] PCP - General Family Practice 07/20/19 documented as of this encounter
--- OUTSIDE RECORDS SUMMARY | 2024-12-26 17:11 | XMS_ITS | Clinical Summary ---
Author Organization [facility] Address [address] [facility] [address] [place] [address] Phone Care Team Providers Care Nurse Auditor Name Role Phone Philomena Hunt MD Primary Care Provider [phone] Allergies No known active allergies Medications amLODIPine [...] Description 05/12/2025 9:00 AM CDT Office Visit [facility] Oncology and Hematology - [place] [address] [facility] [address] [place] [address] Dax Bianchi MD [address] [facility] [address] [place] [address] Health Maintenance Due Date Last [...] 2024 11/26/2018 Medical Devices Implanted Type Area Manager Video Games Device Identifier Shelf Expiration Date Model / Serial / Lot Seamguard Endogia 60 [id number] [id number] - [id number] Implanted:Qty : 3 on 08/29/2019 by Phi Wen MD at [facility] Biological N/A: [employer] 10/25/2021 [id number] / / [id number] Seamguard Endogia 60 Blk [id number] - [id number] Implanted:Qty : 2 on 08/29/2019 by Phi Wen MD at [facility] Biological N/A: Stomach [employer] 07/23/2021 [id number] / / [id number] Insurance [facility] OPTIONS PPO [id number] RX [employer] PLANS (INTERNAL) [facility] Member Subscriber Plan / Payer (Ef fective 2020-Present) Name:Mercedez Hanson Renzo Relation to Subscriber:Self Name:Mercedez Hanson Payer ID:[id number] ([facility]) Type:PPO Address: [address] [place] [id number] [facility] OPEN ACCESS HMO Advance Directives For more information, please contact: [phone] * Full Code (Latest Code Status on File) Date Activated Date Inactivated Comments 08/29/2019 10:36 AM 08/31/2019 8:38 PM * Full Code Date Activated Date Inactivated Comments 08/29/2019 6:57 AM 08/29/2019 10:36 AM Care Teams Nurse Auditor Relationship Specialty Start Date End Date Philomena Hunt MD [address] [place] [address] PCP - General Family Practice 07/20/19
--- OUTSIDE RECORDS SUMMARY | 2024-12-26 17:13 | XMS_ITS | Clinical Summary ---
Author Organization [facility] Address [address] [facility] [place] [address] Care Team Providers Care Plating Equipment Tender Name Role Phone Philomena Hunt MD Primary Care Provider [phone] Source Comments [facility],non-owned Affiliates and Associated Physician Practices is amultiple site organization consisting of ambulatory clinics and hospital sitesin [place], [place], [place] and [place]. This disclosure is being madepursuant to the Care Everywhere program and may not contain all information available regarding this patient. 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 Address: [facility] [id number] [place] [address] Care Teams Plating Equipment Tender Relationship Specialty Start Date End Date Philomena Hunt MD [address] [place] [address] PCP - General 02/19/09
[2024-12-26 17:50] LABS: Albumin Level 4.0 g/dL (3.5-5.1); Anion Gap 8 mmol/L (4-12); Blood Urea Nitrogen 15 mg/dL (7-17); Calcium 8.4 mg/dL (8.4-10.2); Carbon Dioxide 26 mmol/L (22-30); Chloride 105 mmol/L (98-107); Estimated Glomerular Filt Rate 45; Glucose 78 mg/dL (65-110); Potassium 3.2 mmol/L (3.4-5.0); Sodium 139 mmol/L (137-145)
[2024-12-26 18:15] LABS: Total Protein Urine Random < 5 mg/dL; Ur Ttl Prot Creatinine Ratio < 0.01 mg/mg (0-0.20)
== END 2024-12-26 17:09 | disposition home or self-care (01) ==
LOC: ANHLAB 17:09
PROVIDERS: PCP Family Medicine; Visit Provider Internal Medicine Nephrology
DX: I12.9 Hypertensive chronic kidney disease with stage 1 through stage 4 chronic kidney disease, or unspecified chronic kidney disease (principal); N18.31 Chronic kidney disease, stage 3a
CPT/HCPCS: 36415; 80069; 82570; 84156

== ENCOUNTER 2025-01-04 09:21 | Outpatient (CLI) | payer OTHER, SELFPAY ==
--- NOTE | ~2025-01-04 | MM_ITS ---
EXAMINATION: MM screening christian BI w medardo HISTORY: Screening TECHNIQUE: Craniocaudal and mediolateral oblique 3-D tomosynthesis images were obtained and synthetic 2-D images were generated. CAD analysis was submitted and interpreted. COMPARISON: Comparison to multiple prior studies sequentially, with oldest reviewed study dated 11/02/2019. BREAST PARENCHYMAL COMPOSITION: Not dense: There are scattered areas of fibroglandular density. FINDINGS: There are bilateral symmetric changes of both breasts inferiorly, consistent with breast reduction surgery. There is no evidence of suspicious mass, calcification, or architectural distortion to suggest malignancy in either breast. There has been no suspicious interval change. IMPRESSION: 1. No mammographic evidence of malignancy. 2. Recommend routine screening mammography in one year. BI-RADS Category 1: Negative Reviewed, dictated and finalized at location B. ATION OFFICER
--- OUTSIDE RECORDS SUMMARY | 2025-01-04 10:14 | XMS_ITS | Encounter Summary ---
Author Organization [facility] Address [address] [place] [address] Care Team Providers Care Mental Health Associate Name Role Phone Philomena Hunt MD Primary Care Provider [phone] Encounter Details Date Type Department Care Team (Late Contact Info) Description 01/03/2025 External Device Data [facility] ABSTRACTION Provider, Abstract NO ADDRESS ON FILE Social History Tobacco Use Types Packs/Day Years [...] Description 05/12/2025 9:00 AM CDT Office Visit [facility] Oncology and Hematology - [place] [address] [address] Dax Bianchi MD [address] [facility] [address] [place] [address] documented as of this encounter Visit Diagnoses Not on filedocumented in this encounter Care Teams Mental Health Associate Relationship Specialty Start Date End Date Philomena Hunt MD [address] [place] [address] PCP - General Family Practice 07/20/19 documented as of this encounter
--- OUTSIDE RECORDS SUMMARY | 2025-01-04 10:14 | XMS_ITS | Clinical Summary ---
Author Organization [facility] Address [address] [facility] [place] [address] Care Team Providers Care Ink Blender Name Role Phone Philomena Hunt MD Primary Care Provider [phone] Source Comments [facility],non-owned Affiliates and Associated Physician Practices is amultiple site organization consisting of ambulatory clinics and hospital sitesin [place], [place], [place] and [place]. This disclosure is being madepursuant to the Care Everywhere program and may not contain all information available regarding this patient. 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 Gender Identity Not on file Sexual Orientation [...] patient's age to complete this topic Insurance [facility] SELF PAY NO INSURANCE Member Subscriber Plan / Payer (Ef fective for All Dates) Name:HansonMercedez Member ID:Not on file Relation to Subscriber:Not on file Name:HANSON,CASASHWINRachel Subscriber ID:Not on file (Home) Address: [address] [place] [id number] Payer ID:Not on file Group ID:Not on file Type:Self Pay Address: [facility] Care Teams Ink Blender Relationship Specialty Start Date End Date Philomena Hunt MD [address] [place] [address] PCP - General 02/19/09
--- OUTSIDE RECORDS SUMMARY | 2025-01-04 10:14 | XMS_ITS | Encounter Summary ---
Author Organization [facility] Address [address] [place] [address] Care Team Providers Care School Supervisor Name Role Phone Philomena Hunt MD Primary Care Provider [phone] Encounter Details Date Type Department Care Team [...] Description 05/12/2025 9:00 AM CDT Office Visit [facility] Oncology and Hematology - [place] [address] [address] Dax Bianchi MD [address] [facility] [address] [place] [address] documented as of this encounter Visit Diagnoses Not on filedocumented in this encounter Care Teams School Supervisor Relationship Specialty Start Date End Date Philomena Hunt MD [address] [place] [address] PCP - General Family Practice 07/20/19 documented as of this encounter
--- OUTSIDE RECORDS SUMMARY | 2025-01-04 10:14 | XMS_ITS | Clinical Summary ---
Author Organization [facility] Address [address] [place] [address] Care Team Providers Care Forepart Rounder Name Role Phone Philomena Hunt MD Primary Care Provider [phone] Allergies No known active allergies Medications magnesium [...] Date Type Department Care Team Description 12/19/2024 [facility] Documentation [facility] Neurology Speciality Clinic - [address] [place] [address] Shilo Cheung MD 12/19/2024 [facility]phone [facility] [address] [facility] [place] [address] Dottie Dillon NP Prior Authorization ([employer] approval) 12/14/2024 11:00 AM CDT [facility] [address] [facility] [place] [phone] Dottie Dillon NP Establish Care (Getting more [...] st Contact Info) Description 01/23/2025 7:00 AM BONE COOKING OPERATOR Appointment [facility] [place] [address] Dottie Dillon NP [address] [facility] [address] [place] [address] 01/23/2025 7:30 AM BONE COOKING OPERATOR Appointment [facility] [place] [address] Dottie Dillon NP [address] [place] [address] 03/06/2025 9:40 AM BONE COOKING OPERATOR Office Visit [facility] Medical Group Multispecialty Care - [facility] [address] [facility] [place] [address] Dottie Dillon NP [address] [facility] [address] [place] [address] Health Maintenance Due Date Last Done Comments Colorectal Cancer Screening Colonoscopy (10 Years) 1972 Annual Physical 01/13/1975 Hepatitis C 01/13/1990 DTaP, Tdap and Td Vaccines ( 1 - Tdap) 01/13/1991 Hepatitis B Vaccines (1 of 3 - 19+ 3-dose series) 01/13/1991 Mammogram Screening 2012 Pneumococcal Vaccine: 50+ Years (1 of 1 - PCV) 01/13/2022 Zoster Vaccines (1 of 2) 01/13/2022 PHQ-2 (Physician [address]) 02/24/2024 COVID-19 Vaccine (3 - 2024-2 6 [...] patient's age to complete this topic Insurance [facility] Advance Directives * Full Code (Latest Code Status on File) Date Activated Date Inactivated Comments 06/04/2019 2:06 AM 06/11/2019 6:55 PM Care Teams Forepart Rounder Relationship Specialty Start Date End Date Philomena Hunt MD PCP - General FAMILY PRACTICE 06/03/19
--- OUTSIDE RECORDS SUMMARY | 2025-01-04 10:14 | XMS_ITS | Encounter Summary ---
Author Organization [facility] Address [address] [place] [address] Care Team Providers Care Identification Technician Name Role Phone Philomena Hunt MD Primary Care Provider Encounter Details Date Type Department Care Team ([facility] Contact Info) Description 08/22/2019 Abstract [facility] Operating Room [address] [address] [place] [address] [facility] [address] [place] [address] Social History Tobacco Use Types [...] Description 05/12/2025 9:00 AM CDT Office Visit [facility] Oncology and Hematology - [place] [address] [facility] [address] [place] [address] Dax Bianchi MD [address] [facility] [address] [place] [address] documented as of this encounter Visit Diagnoses Not on filedocumented in this encounter Additional Health Concerns Infection Onset Date Last Indicated Resolved Time COVID-19 07/29/2019 07/29/2019 08/28/2019 1:16 AM CDT documented as of this encounter Care Teams Identification Technician Relationship Specialty Start Date End Date Philomena Hunt MD [address] [place] [phone] PCP - General Family Practice 07/20/19 documented as of this encounter
--- OUTSIDE RECORDS SUMMARY | 2025-01-04 10:14 | XMS_ITS | Encounter Summary ---
Author Organization [facility] Address [address] [place] [address] Care Team Providers Care Drum Dyeing Machine Operator Name Role Phone Philomena Hunt MD Primary Care Provider [phone] Encounter Details Date Type Department Care Team (Late Contact Info) Description 07/12/2019 [facility] Operating Room [address] [address] [place] [address] [facility]. [address] [place] [address] Social History Tobacco Use Types [...] Description 05/12/2025 9:00 AM CDT Office Visit [facility] Oncology and Hematology - [place] [address] [facility] [address] [place] [address] Dax Bianchi MD [address] [facility] [address] [place] [address] documented as of this encounter Visit Diagnoses Not on filedocumented in this encounter Additional Health Concerns Infection Onset Date Last Indicated Resolved Time COVID-19 07/29/2019 07/29/2019 08/28/2019 1:16 AM CDT documented as of this encounter Care Teams Drum Dyeing Machine Operator Relationship Specialty Start Date End Date Philomena Hunt MD [address] [place] [phone] PCP - General Family Practice 07/20/19 documented as of this encounter
--- OUTSIDE RECORDS SUMMARY | 2025-01-04 10:14 | XMS_ITS | Clinical Summary ---
Author Organization [facility] Address [address] [facility] [place] [address] [place] [place] [address] Phone Care Team Providers Care Welt Treater Name Role Phone Philomena Hunt MD Primary Care Provider [phone] Allergies No known active allergies Medications amLODIPine [...] Encounters Date Type Department Care Team Description 01/03/2025 External Device Data [facility] ABSTRACTION Provider, Abstract 01/03/2025 External Device Data [facility] Provider, Abstract 12/27/2024 External Device Data [facility] Provider, Abstract 12/21/2024 External Device Data [facility]STRACTION Provider, [...] Description 05/12/2025 9:00 AM CDT Office Visit [facility] Oncology and Hematology - [place] [address] [facility] [address] [place] [address] Dax Bianchi MD [address] [facility] [address] [place] [address] Health Maintenance Due Date Last [...] 2024 11/26/2018 Medical Devices Implanted Type Area Industrial Property Appraiser Device Identifier Shelf Expiration Date Model / Serial / Lot Seamguard Endogia 60 [id number] [id number] - [id number] Implanted:Qty : 3 on 08/29/2019 by Phi Wen MD at [facility] Biological N/A: Stomach [employer] 10/25/2021 [id number] / / [id number] Seamguard Endogia 60 [id number] - [id number] Implanted:Qty : 2 on 08/29/2019 by Phi Wen MD at [facility] Biological N/A: Stomach [employer] 07/23/2021 [id number] / / [id number] Insurance [facility] OPTIONS PPO [id number] RX [employer] PLANS (INTERNAL) [facility] Internal Plans RX [employer] OPEN ACCESS HMO Advance Directives For more information, please contact: [phone] * Full Code (Latest Code Status on File) Date Activated Date Inactivated Comments 08/29/2019 10:36 AM 08/31/2019 8:38 PM * Full Code Date Activated Date Inactivated Comments 08/29/2019 6:57 AM 08/29/2019 10:36 AM Care Teams Welt Treater Relationship Specialty Start Date End Date Philomena Hunt MD [address] [place] [phone] PCP - General Family Practice 07/20/19
--- OUTSIDE RECORDS SUMMARY | 2025-01-04 10:14 | XMS_ITS | Clinical Summary ---
Author Organization [facility] Address [address] [place] [address] Care Team Providers Care Art Dealer Name Role Phone Philomena Hunt MD Primary Care Provider [phone] Allergies No known active allergies Medications pantoprazole [...] Type Department Care Team Description 10/27/2024 Telephone [facility] [address] [facility] 8th [place] [address] [place] [address] Shanta Kat MD Follow-up 10/25/2024 Telephone [facility] [address] [facility] 8th [place] [address] [place] [address] Sakina Estrada NP Follow-up 10/06/2024 Orders Only [facility] Scanning, Provider 10/05/2024 12:30 PM CDT Office Visit [facility] [address] [place] [address] 8th [place] [address] [place] [address] Sakina Estrada NP Uncontrolled hypertension (Primary Dx) 10/05/2024 Results Follow-Up [facility] [address] 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 Gender Identity Not on file Sexual [...] ECG 12 lead (10/05/2024 12:19 PM CDT) us Sakina Rater STYLIST ASSISTANT ECG ORDERABLES Final Result from Last 3 Months Insurance [facility] H[facility]PP[facility] Address: [address] [address] [place] [address] CIGNA [facility] CHOICE PLUS [facility] HMO/PPO Address: [address] [address] [place] [id number] [facility] H[employer]/PPO Address: [address] [address] [place] [address] C[employer] Advance Directives For more information, please contact: [phone] * Full Code (Latest Code Status on File) Date Activated Date Inactivated Comments 08/17/2020 3:46 PM 08/18/2020 6:00 PM Care Teams Art Dealer Relationship Specialty Start Date End Date Philomena Hunt MD PCP - General Family Medicine 11/03/18
== END 2025-01-04 09:22 | disposition home or self-care (01) ==
LOC: ANHIMG 09:24
PROVIDERS: PCP Family Medicine; Visit Provider Nurse Practitioner
DX: Z12.31 Encounter for screening mammogram for malignant neoplasm of breast (principal)
CPT/HCPCS: 77063; 77067